=== PATIENT | male | born 1950 | race Caucasian/White ===

== ENCOUNTER 2017-10-06 10:46 | Inpatient (IN) | payer MEDICARE, BC ==
[2017-10-06] MEDS ORDERED: Lorazepam 2 MG/ML VIAL ONE (11:07)
[2017-10-06] MEDS ORDERED: niCARdipine 20MG In NaCl 20 MG/200 ML BAG ONE ×2 (11:35→13:36)
--- NOTE | 2017-10-06 12:01 | CT ---
CT HEAD WITHOUT CONTRAST: Technique: Multiple axial tomograms were obtained through the head without IV contrast. History: Transfer from [facility] with diagnosis of subdural hematoma. Comparison: CT head from [facility] at 3:54 a.m. 10-06-17. That exam revealed a left subdural hematoma with slight midline shift and some subarachnoid hemorrhag e seen superiorly in the left hemisphere. FINDINGS: The current study again shows the left subdural hematoma. This measures approximately 7 mm thickness along the left convexity. There is a focal area superiorly, slightly more prominent, associated with pre subarachnoid blood. This is unchanged in appearance. There is a small falcine subdural hematoma s een along the anterior falx to the left of midline. This falcine subdural has occurred since the outs pilo exam. There is a slight midline shift to the right measured at approximately 4-5 mm at the septum pellucidu m. No evidence of skull fracture. IMPRESSION: 1. Left subdural hematoma with significant subarachnoid blood in the superior left hemisphere. Small falcine subdural hematoma seen anteriorly. Slight midline shift as described above. POS: [id number]
[2017-10-06 12:03] LABS: #Lymphocytes 0.5 thou/uL (1.20-3.40); #Monocytes 0.3 thou/uL (0.11-0.59); #Neutrophils 6.1 thou/uL (1.40-6.50); %Eosinophils 0.2 % (0.0-10.0); %Lymphocytes 7.5 % (21.0-51.0); %Monocytes 4.7 % (0.0-10.0); %Neutrophils 87.7 % (42.0-75.0); Hemoglobin 13.3 g/dL (14.0-18.0); Mean Corpuscular HGB CONC 35.1 g/dL (32.0-36.0); Mean Corpuscular Hemoglobin 33.8 pg (27.0-31.0); Mean Corpuscular Volume 96.2 fl (80.0-94.0); Mean Platelet Volume 8.4 fL (7.4-10.4); Platelet Count 123 thou/uL (130-400); RBC Distribution Width 13.7 % (11.5-14.5); Red Blood Cell (RBC) Count 3.95 mill/uL (4.70-6.10)
[2017-10-06 12:22] LABS: Anion Gap 15 mmol/L (10-20); BUN (Urea Nitrogen) 32 mg/dL (8.4-25.7); CK (CPK) 284 U/L (30-200); Calc. Creatinine Clearance 0 mL/min (70-130); Calcium 9.8 mg/dL (7.8-10.44); Carbon Dioxide 22 mmol/L (23-31); Chloride 105 mmol/L (98-107); Estimated GFR-MDRD 53; Glucose 293 mg/dL (80-115); Potassium 4.5 mmol/L (3.5-5.1); Sodium 137 mmol/L (136-145)
[2017-10-06 12:24] LABS: PTT 31.8 SEC (22.9-36.1)
[2017-10-06 12:29] LABS: INR-International Normal Ratio 1.2; Prothrombin Time 15.8 SEC (12.0-14.7)
[2017-10-06] MEDS ORDERED: Acetaminophen 1,000 MG in Premix Bag 1 BAG IVPB SCH (12:30)
[2017-10-06 12:57] LABS: CKMB 21.6 ng/mL (0-6.6)
[2017-10-06] MEDS ORDERED: Milk Of Magnesia 30 ML UDCUP PO PRN (13:00)
[2017-10-06] MEDS ORDERED: Ondansetron HCl/PF 4 MG/2 ML Vial IVP PRN (13:00)
--- NOTE | 2017-10-06 13:32 | PRG ---
DATE OF SERVICE: 10/06/2017 This is a 50 minute initial hospital visit note in which 50 minutes were spent in reviewing the imagi ng, record, evaluation and examination of the patient, and formulation of a plan. Greater than 50% w as spent in counseling on Beth Crawford. CHIEF COMPLAINT: Left-sided acute subdural hematoma on Coumadin and aspirin with history of rig mechanic al heart valve. HISTORY OF PRESENT ILLNESS: I reviewed the notes of my colleague, Luther Dennis PA-C, and agree wi th its content. Mr. Crawford is a 67-year-old man who evidently fell 2 days ago. He was brought to [facility] and an acute subdural hematoma was identified. This enlarged a bit on C T angiogram which was negative for aneurysm. It was approximately 7-8 mm in size with approximately 3 mm of left to right midline shift. The patient has been drowsy, but is localized with some right- sided weakness. His INR was 1.7. He was given 2 units of FFP and 10 mg of vitamin K. At the time o f my evaluation, he had also gotten 0.5 mg of Ativan evidently for agitation. CT of the cervical spi ne was negative for acute abnormality. This was done at [facility]. PHYSICAL EXAMINATION: He prefers to keep his eyes closed, but he does open his eyes to noxious stimu li. He is nonverbal for me, but he localizes in his upper extremities with a bit more weakness in th e right upper extremity compared to the left. IMPRESSION AND PLAN: I have let the family know that his subdural is not of significant size, I do n ot think it necessary to pursue surgical intervention at this time. We will repeat a head CT in the morning. We will ensure that his INR has been corrected. He has been loaded with levetiracetam. We will continue this. I have also spoken with our intensive care unit team. He is not at this point intubated and his oxygen saturations remained just fine on nasal cannula. While he is drowsy, he is certainly awakens to noxious stimuli and makes eye contact with the examiner. His pupils are symmetr ic and equally round and reactive on my exam. I have let the family know that surgery would be for l larissa saving purposes and at this point I suspect that there his right-sided weakness is more from lisbeth ical irritation and perhaps a seizure that he may have had from his fall a couple days ago. We will use fosphenytoin at this time, watch him closely overnight, keep him n.p.o. at this time. IMPRESSION: Left subacute subdural hematoma status post fall on Coumadin and aspirin.
[2017-10-06] MEDS: Sodium Chloride 0.9% 1,000 ML IV SCH (14:50)
[2017-10-06] MEDS ORDERED: Dextrose 50% Abboject 50 ML SYRINGE SLOW IVP PRN (15:40)
[2017-10-06] MEDS ORDERED: Dextrose 5% in Water 1,000 ML IV PRN (15:40)
[2017-10-06 15:47] LABS: Troponin I 4.446 ng/mL (< 0.028)
[2017-10-06] MEDS: niCARdipine HCl 25 MG in Sodium Chloride 0.9% 250 ML 240 ML IVPB SCH ×3 (15:59→20:51)
[2017-10-06] MEDS: HumaLOG 300 UNITS/3 ML VIAL SC PRN (16:20)
--- NOTE | 2017-10-06 17:02 | CON ---
DATE OF SERVICE: 10/06/2017 SERVICE: Pulmonary Medicine. REASON FOR CONSULTATION: ICU patient. HISTORY OF PRESENT ILLNESS: The patient is a 67-year-old white male with past medical history signif icant for a mechanical aortic valve. He is on chronic anticoagulation for the same. He slipped and fell off of his ladder couple of days ago and became increasingly somnolent. [facility]. A CT scan of the head was performed demonstrating a subdural hematoma. He was subsequently transitioned here and several hours later, repeat CT scan of the head was perfo rmed. It is my understanding that his neurologic status has been roughly stable over this period of time as well. It demonstrated that the subdural hematoma had not been significantly changing. As sarah bauer, we are watching him in the ICU very closely to make certain that he does not have further decompe nsation neurologically. Outside of this, the patient is somnolent. With aggressive stimulation, he will localize on the left and actually follows some simple commands over there. Otherwise, he remain s extraordinarily sleepy and does not participate in much. He is protecting his airway and had a lit tle bit of cough. He has almost continuous snoring, but it does not appear that he is having any obs tructive apneas and he is not having any episodes of hypoxemia. PAST MEDICAL HISTORY: 1. Type 2 diabetes mellitus. 2. Dyslipidemia. 3. Hypertension. 4. Peripheral vascular disease. 5. Coronary artery disease. 6. Neuropathy. 7. History of subdural hematoma. PAST SURGICAL HISTORY: Coronary artery bypass graft, 4-vessel. SOCIAL HISTORY: Negative for alcohol, tobacco or illicit drug use. FAMILY HISTORY: Noncontributory. ALLERGIES: No known drug allergies. MEDICATIONS: List of his inpatient medications were reviewed. No specific updates were made at this time. REVIEW OF SYSTEMS: This could not be obtained as the patient is currently sedated secondary to his n eurologic injury. LABORATORY DATA: WBC 7.0, hemoglobin 13.3, platelets 123,000. Neutrophils are 87%. INR 1.2. Creat inine 1.35. No baseline is available for comparison. Basic metabolic profile is otherwise unremarka ble. Troponin is 2.12, lactate 1.5. ASSESSMENT: 1. Subdural hematoma. 2. Type 2 diabetes mellitus. 3. Encephalopathy secondary to #1. 4. Non-ST elevation myocardial infarction, likely secondary to subdural hematoma. 5. History of aortic valve replacement requiring anticoagulation at some point in the future once ag ain. PLAN: I will get an EKG to make certain the patient does not have any significant ST changes. Outsi de of that, troponin will be repeated. Supportive measures will be continued and we will closely fol low his neurologic status. If anything gets worse, repeat CT scan of the head will be performed and Neurosurgery will be notified of change in status. We will monitor for signs of sepsis and have a lo w threshold for chest x-ray as well as navarro culture. At this time, no aggressive maneuvers will be en tertained. Insulin be will initiated if the patient's blood sugars start to go up.
--- NOTE | 2017-10-06 18:12 | ADD-ER ---
ADDENDUM DATE OF SERVICE: 10/06/2017. Please refer to the patient's electronic medical record for further details of his visit. In summary, the patient presents as a transfer from [facility] where he was diagn osed with a subdural hematoma earlier this morning. By report, he woke his around 3:30 in the m orning indicating he was unable to speak. He fell on Tuesday, but did not lose consciousness at that time. He felt well until he woke his earlier this morning. Findings at [facility] are consistent with subdural hematoma with 2 mm midline sh ift. The patient was evaluated by the neurosurgical service there and it was decided to transfer him here for higher level ICU care. On my initial evaluation, the patient is maintaining his airway protected reflexes, he is breathing s pontaneously without distress. Breath sounds are clear bilaterally. Peripheral pulses were intact i n all extremities. The patient was not following commands or responding to questions, though he was moving all extremities. He did calm down quite a bit once his arrived, after initially being ra ther agitated on arrival. He remained stable during his time in the ER, with blood pressure control using a Cardene drip which was titrated for a goal systolic blood pressure 140 to 160. The patient was again evaluated by the neurosurgical service in the ER. Repeat CT shows no progressi on of his subdural hematoma. His Coumadin was reversed using FFP and vitamin K at the sending facili ty. This showed adequate response on repeat INR with a value of 1.2. There is also of note that he sustaining non-ST elevation KS with rising troponin compared with the sending facilities. He is 2.12 on recheck here, with ST depression and T-wave inversion on his EKG consistent with subendocardial i njury. I discussed this case with Dr. Gaytan, who agrees that there is no acute intervention indicat ed at this point, has any antiplatelet or anticoagulation therapy would worsen the patient's intracra nial hemorrhage. He is in no respiratory distress while in the ER, though chest x-ray is consistent with congestive heart failure. He was not hypoxic with supplemental oxygenation. I discussed the fi ndings and plan with his family, who verbalized understanding. All of their questions were answered. The patient is in critical condition at time of admission to the ICU.
[2017-10-06] MEDS ORDERED: Metoprolol Tartrate 5 MG/5 ML VIAL IVP PRN (20:02)
[2017-10-06] MEDS: Famotidine/PF 20 mg/2ml Vial SLOW IVP SCH (20:58)
[2017-10-06] MEDS: Docusate 100 MG CAP PO SCH (20:59)
--- NOTE | 2017-10-06 22:23 | CON ---
DATE OF CONSULTATION: 10/06/2017 HISTORY OF PRESENT ILLNESS: Mr. Crawford is a 67-year-old patient of Dr. Paolo Jha. The patient has a history of aortic valve replacement and has a subdural hematoma. The history is really only available through the chart, as the patient is noncommunicative now. Mr. Crawford is 67 years of age, has mechanical aortic valve, some chronic anticoagulation. He slipped and fell off a ladder couple of days ago became somnolent. He went to the emergency room with the ed. CT of the head showed subdural hematoma. Patient was transferred to this institution. Repeat C T of the head was performed again showing subdural hematoma. Patient has remained somnolent during t his time. PAST MEDICAL HISTORY: 1. Diabetes. 2. Peripheral vascular disease. 3. Previous aortic valve replacement, mechanical. 4. Really no other history available. PAST SURGICAL HISTORY: According to one of the notes says he has had bypass x4 vessel with aortic va lve replacement. SOCIAL HISTORY: Negative for alcohol or tobacco. FAMILY HISTORY: Noncontributory. ALLERGIES: None known. REVIEW OF SYSTEMS: Not obtainable. LABORATORY DATA AND X-RAY FINDINGS: As mentioned, there is the CT shows subdural hematoma. EKG reve als ST depression in lead I and aVL. PERTINENT LABORATORY DATA: Potassium is 4.5, creatinine 1.35. Troponin level 4.46, hemoglobin 13.3. INR is now down to 1.2. His Coumadin has been reversed. ASSESSMENT: 1. Previous aortic valve replacement. 2. Subdural hematoma. 3. Non-ST elevation myocardial infarction. PLAN: 1. Add intravenous beta blockers. 2. Chest x-ray in the morning. No other intervention obviously indicated or feasible, but cannot gi ve antiplatelet drugs in the setting of subdural hematoma.
[2017-10-07] MEDS: niCARdipine HCl 25 MG in Sodium Chloride 0.9% 250 ML 240 ML IVPB SCH ×4 (02:00→04:00)
[2017-10-07] MEDS: HumaLOG 300 UNITS/3 ML VIAL SC PRN ×3 (02:22→16:00)
[2017-10-07 05:10] LABS: #Lymphocytes 0.6 thou/uL (1.20-3.40); #Monocytes 0.5 thou/uL (0.11-0.59); #Neutrophils 7.2 thou/uL (1.40-6.50); %Basophils 0.1 % (0.0-1.0); %Eosinophils 0.2 % (0.0-10.0); %Lymphocytes 6.7 % (21.0-51.0); %Monocytes 6.6 % (0.0-10.0); %Neutrophils 86.5 % (42.0-75.0); Hemoglobin 12.8 g/dL (14.0-18.0); Mean Corpuscular HGB CONC 34.3 g/dL (32.0-36.0); Mean Corpuscular Hemoglobin 32.7 pg (27.0-31.0); Mean Corpuscular Volume 95.5 fl (80.0-94.0); Mean Platelet Volume 8.9 fL (7.4-10.4); Platelet Count 122 thou/uL (130-400); RBC Distribution Width 13.6 % (11.5-14.5); Red Blood Cell (RBC) Count 3.91 mill/uL (4.70-6.10); White Blood Cell (WBC) Count 8.3 thou/uL (4.8-10.8)
[2017-10-07 05:13] LABS: Anion Gap 13 mmol/L (10-20); BUN (Urea Nitrogen) 45 mg/dL (8.4-25.7); Calc. Creatinine Clearance 64 mL/min (70-130); Calcium 9.4 mg/dL (7.8-10.44); Carbon Dioxide 25 mmol/L (23-31); Chloride 107 mmol/L (98-107); Estimated GFR-MDRD 41; Glucose 338 mg/dL (80-115); Magnesium 1.6 mg/dL (1.6-2.6); Phosphorus 2.8 mg/dL (2.3-4.7); Potassium 4.2 mmol/L (3.5-5.1); Sodium 141 mmol/L (136-145)
[2017-10-07 05:22] LABS: Troponin I 7.882 ng/mL (< 0.028)
[2017-10-07] MEDS ORDERED: Acetaminophen 650 MG Suppository PR SCH (06:00)
--- NOTE | 2017-10-07 07:29 | CT ---
PRELIMINARY REPORT/[facility]/EMERGENCY AFTER HOURS PROCEDURE: EXAM: CT Head Without Intravenous Contrast CLINICAL HISTORY: 67 years old, male; Condition or disease; Other: Sdh; Patient HX: F/u sdh TECHNIQUE: Axial computed tomography images of the head/brain without intravenous contrast. COMPARISON: CT Brain WO Con 2017-10-06 11:34 FINDINGS: Grossly stable left-sided subdural and subarachnoid hemorrhages with edema and minimal shift to the r ight. Intraventricular hemorrhage noted. The ventricles have mildly increased in size. The basal and suprasellar cisterns are patent. The calvarium is intact. The paranasal sinuses and mastoid cavities are grossly clear IMPRESSION: Interval development of mild hydrocephalus. Mild intraventricular hemorrhage Otherwise, grossly stable left-sided subdural/subarachnoid hemorrhages Thank you for allowing us to participate in the care of your patient. Dictated and Authenticated by: Mike Centeno MD 10/07/2017 4:36 AM Central Time ([place] & Jose Daniel) FINAL REPORT CT HEAD NONCONTRAST: Date: 10/07/17 COMPARISON: Previous day. FINDINGS/IMPRESSION: I agree with the above provided preliminary interpretation. Redemonstration of intracranial hemorrhage overlying the left hemisphere with mild volume intraventri cular hemorrhage. There is mild ventriculomegaly. Continued follow-up is recommended.
[2017-10-07] MEDS ORDERED: niCARdipine 40MG In NaCl 40 MG/200 ML BAG IVPB SCH (08:30)
[2017-10-07] MEDS: Famotidine/PF 20 mg/2ml Vial SLOW IVP SCH (08:33)
[2017-10-07] MEDS: Docusate 100 MG CAP PO SCH ×2 (08:34→21:02)
[2017-10-07] MEDS: Sodium Chloride 0.9% 1,000 ML IV SCH ×2 (08:35→14:05)
[2017-10-07] MEDS: niCARdipine HCl 50 MG in Sodium Chloride 0.9% 250 ML 230 ML IVPB SCH (08:36)
[2017-10-07] MEDS ORDERED: Sodium Chloride 0.9% 10 ML ONE (08:50)
[2017-10-07] MEDS ORDERED: Lidocaine 1% w/Epinephrine 1:200K 30 ML VIAL ONE (08:50)
[2017-10-07] MEDS ORDERED: Thrombin 5000 UNITS/5 ML VIAL ONE (08:50)
[2017-10-07] MEDS ORDERED: Bacitracin Zinc Ointment 30 gm TUBE ONE (08:50)
[2017-10-07] MEDS ORDERED: Fentanyl 100 MCG/2 ML VIAL ONE (09:11)
[2017-10-07] MEDS ORDERED: Midazolam HCl 2 mg/2 ml Vial ONE (09:11)
--- NOTE | 2017-10-07 09:13 | RAD ---
PORTABLE AP CHEST: Date: 10/07/17 HISTORY: AVR. COMPARISON: 07/25/17. FINDINGS: A left internal jugular vein MediPort catheter remains in plate. The tip again courses across the mid line and overlies the expected location of the junction of the right subclavian vein/innominate vein, and unchanged in position. Postsurgical changes related to CABG are again present. There is persiste nt elevation of the right hemidiaphragm with volume loss at the right lung base. The left lung is jen ar. Cardiac silhouette and pulmonary vasculature are within normal limits. Given differences in techn ique, there has been no significant interval change when compared to the prior exam. IMPRESSION: Stable chest. POS: C
--- NOTE | 2017-10-07 09:33 | PRG ---
DATE OF SERVICE: 10/07/2017 I am seeing Mr. Crawford in followup. He is in his first hospital day following admission for left-mariaelena ed acute subdural hematoma in a fall 3 days [address]. His head CT is essentially stable this morning if n ot improved in regards to shift which is quite minimal even yesterday. Unfortunately, however, he do es appear to have parenchymal contusion around the region of the motor strip and continued mass effec t in the hemisphere and he is in fact neurologically declined overnight. He was also found to have h ad a non-STEMI. He hemodynamically remains stable; however. At this point, I have let the family kn ow that on exam he does not open his eyes like he did yesterday, I cannot get him to do anything with the right upper extremity which he was localizing yesterday. He does localize in the left upper ext remity; however. He appears to be obtunded. Yesterday, he was drowsy. As such, given all this, I h ave let the family know that I would recommend that we take him to the operating room and remove his subdural hematoma. While this is not a substantial subdural hematoma, this certainly is leading to n eurological decline on this patient. I feel that if we do not do anything, he will likely get worse, maybe chance that is he may develop cardiac issues during surgery, but again if nothing is done to r elieve pressure on his brain, I think he will continue to worsen. I have had a long discussion with him and his and his daughter regarding acute subdural hematoma evacuation, the risks, benefits, and they wish to have proceed. They understand the chance of temporary or permanent neurological wor sening and cardiac issues even such as remain the main concern. They understand these risks an d wished to proceed with surgery.
[2017-10-07] MEDS ORDERED: Insulin Regular 300 UNITS/3 ML VIAL ONE (10:02)
[2017-10-07] MEDS ORDERED: Magnesium 2 GM/NS 0.9% 100 ML 2 GM in Premix Bag 1 BAG IVPB SCH (10:15)
[2017-10-07 12:37] LABS: Actual Bicarbonate (HCO3a) 20.8 mEq/L (22-26); Base Excess (BEa) -3.1 mEq/L (0 (+/-) 2.5); CO2 Tension 33.9 mmHg (35.0-45.0); Calcium, Ionized 1.2 mmol/L (1.12-1.30); Hematocrit-ABG 35.7 % (42.0-52.0); Hemoglobin (Hb) 12.4 g/dL (14.0-18.0); O2 Tension (PaO2) 193.3 mmHg (80.0-100.0); pH, Arterial 7.41 (7.35-7.45)
[2017-10-07] MEDS ORDERED: Lorazepam 2 MG/ML VIAL ONE ×2 (12:39→12:52)
[2017-10-07] MEDS ORDERED: Propofol 1,000 MG/100 ML VIAL IV ONE (12:52)
--- NOTE | 2017-10-07 13:02 | RAD ---
PORTABLE CHEST: Date: 10/07/17 Supine portable chest exam obtained. HISTORY: Assess central line placement. FINDINGS: Comparison made to exam performed earlier this morning at 0448 hours. A MediPort type catheter via the left jugular remains in place and the tip of this line enters the ri ght innominate vein and points superiorly into the right internal jugular. This is unchanged. A new left subclavian vein has been placed and the tip of this line overlies the SVC. The lungs otherwise remain clear. There is a relatively poor inspiration. Elevated right hemidiaphrag m is again noted. No evidence of pneumothorax. Mild cardiomegaly again noted. ET tube has been placed . IMPRESSION: Central lines are seen as described above. POS: [facility]
[2017-10-07] MEDS: Piperacillin/Tazobactam 2.25 GM in Sodium Chloride 0.9% 100 ML IVPB SCH ×3 (13:12→23:59)
[2017-10-07] MEDS ORDERED: Sedation Protocol FS ONE (13:21)
[2017-10-07] MEDS ORDERED: Lacri-Lube Opth Oint 3.5 GM TUBE EA EYE PRN (13:21)
[2017-10-07] MEDS ORDERED: Lorazepam 2 MG/ML VIAL SLOW IVP PRN (13:24)
[2017-10-07] MEDS ORDERED: DISCONTINUE PREVIOUS NARCOTIC PAIN MEDICATIONS AND BENZODIAZEPINES FS SCH (13:24)
[2017-10-07] MEDS ORDERED: Fentanyl 20 MCG/ML 250 ML IVPB SCH (13:24)
[2017-10-07] MEDS ORDERED: Morphine 4 MG/ML VIAL SLOW IVP PRN (13:30)
--- NOTE | 2017-10-07 13:55 | PRG ---
DATE OF SERVICE: 10/07/2017 SUBJECTIVE: Mr. Crawford is postoperative, now he went down to the operating room for drainage of a smtih bdural hematoma. He has a drain in place with still a lot of bloody output from the drain. Patient is unresponsive currently. Intubated on the ventilator. OBJECTIVE: VITAL SIGNS: Blood pressure 114/56, pulse 100-104, sinus tachycardia. LUNGS: Clear. CARDIAC: Tachycardic for rest. ABDOMEN: Soft, nontender. EXTREMITIES: There is mild edema. PERTINENT LABORATORY DATA: Hemoglobin is 12.8, potassium 4.2. The peak troponin was 7.8. ASSESSMENT: 1. Subdural hematoma. 2. Status post mechanical aortic valve replacement. 3. Non-ST elevation myocardial infarction. 4. Previous bypass surgery. PLAN: 1. Add metoprolol on a routine basis. He has been getting it intermittently. 2. Postoperative status. 3. Obviously not a candidate for any interventional therapy from a coronary standpoint in view of th e continued bleeding with subdural hematoma. Continue supportive care. Prognosis is guarded to poor . ADDENDUM: Renal function also worsened, creatinine is now 1.69.
[2017-10-07] MEDS ORDERED: CEFAZOLIN 2 GM in Sodium Chloride 0.9% 100 ML IVPB SCH (14:00)
[2017-10-07] MEDS: CEFAZOLIN/Water 2 GM/20 ML SYRINGE SLOW IVP SCH ×2 (14:05→21:00)
[2017-10-07 14:06] LABS: Bilirubin Negative (Negative); Blood, Urine Large (Negative); Clarity TURBID (Clear); Glucose, Urine (Dipstick) 250 mg/dL (Negative); Leukocyte Negative (Negative); Nitrite Negative (Negative); Protein, Urine (Dipstick) > or equal to 300 mg/dL (Neg-Trace); Specific Gravity, Urine 1.036 (1.002-1.036); Urobilinogen 0.2 mg/dL (0.2-1.0); pH, Urine 5.5 (5.0-9.0)
[2017-10-07 14:07] LABS: Actual Bicarbonate (HCO3a) 21.2 mEq/L (22-26); Base Excess (BEa) -2.4 mEq/L (0 (+/-) 2.5); CO2 Tension 32.6 mmHg (35.0-45.0); Calcium, Ionized 1.2 mmol/L (1.12-1.30); Hematocrit-ABG 31.4 % (42.0-52.0); Hemoglobin (Hb) 11.3 g/dL (14.0-18.0); O2 Tension (PaO2) 62.4 mmHg (80.0-100.0); pH, Arterial 7.43 (7.35-7.45)
[2017-10-07 14:08] LABS: Puncture Site A-LINE
[2017-10-07 14:09] LABS: Bacteria/HPF None Seen HPF (None Seen)
[2017-10-07 14:17] LABS: Pathc Cast-AUWi Flag 20.06 (0-2.49); Yeast-AUWi Flag 33.5 (0-25.0)
[2017-10-07 14:45] LABS: Crystals/HPF 2+ AMORPH URATES HPF (Negative)
[2017-10-07 14:46] LABS: Hyaline Casts/LPF 0-3 HYALINE CAST LPF (0-3 Hyaline)
[2017-10-07 14:47] LABS: Yeast-All Forms None Seen HPF (None Seen)
[2017-10-07] MEDS ORDERED: Succinylcholine Chloride 20 MG/ML 10 ml SYRINGE FS ONE (15:32)
[2017-10-07] MEDS ORDERED: Propofol 200 MG/20 ML VIAL ONE (15:32)
[2017-10-07] MEDS ORDERED: PHENYLEPHRINE-NS 100 MCG/ML 10 ML SYRINGE ONE (15:32)
[2017-10-07] MEDS ORDERED: ePHEDrine/0.9% NaCl/PF SYRINGE 50 mg/10 ml ONE (15:32)
[2017-10-07] MEDS ORDERED: Vecuronium 10 MG VIAL ONE (15:32)
--- NOTE | 2017-10-07 15:33 | PRG ---
DATE OF SERVICE: 10/07/2017 SERVICE: Pulmonary Medicine. INTERVAL HISTORY: The patient did poorly overnight. His mentation decreased. This prompted a CT scan. He had worsening changes including hydrocephalus, and slightly increased in midline shift. Because of the altered mentation, he was brought down for craniectomy. He is postop day #0 from that. Immediately on bringing him back to the unit, we reversed the paralytic. He was noted to have seizure type movements of the right upper extremity, and mouth. As such, couple doses of Ativan were given and this resolved. We are going to keep him in a neurologic coma for the next 24 hours and slowly wake him up, starting tomorrow morning. Extubation will be performed as soon as is possible. He had multiple episodes of fever overnight. The origin of those fevers most likely is secondary to the neurologic issue though he is pulling up increasing pus from the endotracheal tube. PHYSICAL EXAMINATION: VITAL SIGNS: T-max 102.1, pulse 105, blood pressure 114/56, respirations 18, saturation 92% on 40% FIO2 and a PEEP of 8. GENERAL: The patient is intubated under the influence of some sedating medications. HEENT: Normocephalic, atraumatic. Sclerae are white, conjunctivae pink. Oral and nasal mucosa is moist without lesions. LUNGS: Decent air entry. There is no prolonged expiratory phase. Rhonchi are present. HEART: Normal rate, regular. ABDOMEN: Soft, nontender, nondistended. Bowel sounds are positive. MUSCULOSKELETAL: No cyanosis or clubbing. There is no pitting in the bilateral lower extremities. LABORATORY DATA: WBC 8.3, hemoglobin 12.8, and platelets are 122,000. INR 1.2. Creatinine 1.69 and up trending. Basic metabolic profile is otherwise unremarkable. Magnesium is 1.6, phosphorus 2.8. Troponin continues to climb upward at 7.8. IMAGIN. CT of the brain demonstrates mild hydrocephalus and mild intraventricular hemorrhage with otherwise stable subdural/subarachnoid hemorrhage. 2. X-ray demonstrates good placement of the endotracheal tube. There is a left- sided subclavian catheter then actually across the midline and back up into the upper chest. The Port-A-Cath remains in good position and is in the expected area where the terminate. There are some clips that overlie the left hilum. Small lung volumes are evident, suggestive of atelectasis of the right lower lobe. ASSESSMENT: 1. Acute hypoxic respiratory failure, likely secondary to atelectasis. 2. Systemic inflammatory response syndrome, with possible aspiration. 3. Subdural hematoma with worsening neurologic symptoms, requiring a craniectomy, postop day #0. 4. Seizure, witnessed at bedside by both Neurosurgery and Critical Care. 5. Non-ST elevation myocardial infarction. 6. History of aortic valve replacement, requiring anticoagulation at some point in the future. PLAN: Because of the acute seizures, we will give a couple of doses of Ativan and keep him in a propofol induced sedation state over the next 12 hours. I will give him a sedation holiday in the morning and consider him for extubation if he tolerates CPAP trial. My suspicion is that the patient has an atelectasis of the right lower lobe as he did not have significant oxygenation issues prior to our procedure. I will empirically initiate some antibiotics that should cover most community-acquired aspiration related diseases. Roa culture will be obtained and we can deescalate therapy if the cultures are all negative. My suspicion is that the fever is secondary to his neurologic injury. That being said, we have yet to confirm that. We will titrate the blood pressure medications in order to maintain systolic less than 140. Insulin will be adjusted as the day goes by in order to target blood sugars between 120 and 180. Critical care time: 45 minutes. AUGUSTIND
[2017-10-07] MEDS: Metoprolol Tartrate 5 MG/5 ML VIAL IVP SCH ×2 (16:32→21:00)
[2017-10-07 16:41] LABS: Analyzer IN Cardio OR; Puncture Site ALINE
[2017-10-07] MEDS ORDERED: levETIRAcetam In NaCl (Iso-Os) 1,000 MG in Premix Bag 1 BAG IVPB SCH ×2 (21:00)
[2017-10-07] MEDS: Insulin Detemir 100 UNITS/ML 10 UNITS in Pre-Filled Syringe 1 EACH SC SCH (21:01)
--- NOTE | 2017-10-07 22:13 | CON ---
DATE OF CONSULTATION: 10/07/2017 REFERRING PROVIDER: Dr. Marcelo Nielsen. REASON FOR CONSULTATION: Seizures. HISTORY OF PRESENT ILLNESS: Mr. Crawford is a 67-year-old male who has been consulted for ev aluation of seizures. History is obtained from patient's medical chart as patient is unable to provi de and there are no family member present at bedside. Apparently, patient has a history of mechanica l aortic valve and for which he is on chronic anticoagulation therapy. He had slipped and fell off h is ladder a couple of days ago after which he became increasingly somnolent. He was becoming more an d more lethargic and somnolent. Family had called EMS and was taken to [facility] Emergency Room where he had a CT scan of the head done, which showed a subdural hematoma. He was s ubsequently transferred over here. He has undergone a subdural hematoma evacuation by Dr. Nielsen. A fter the surgery, he was noted to have right facial twitching suggestive of focal motor seizures for which I am being asked to further evaluate and provide recommendations. Past medical history, past surgical history, social history, family history, current medications, all ergies were reviewed from consultation note done by Dr. Lenny Benitez done on 10/06/2017. REVIEW OF SYSTEMS: Unable to perform. PHYSICAL EXAMINATION: VITAL SIGNS: Blood pressure 127/58, pulse of 88, temperature of 99.4, respirations of 15 on new car get ready mechanic al ventilation. GENERAL: Intubated and sedated, and male. RESPIRATORY: Clear to auscultation bilaterally. CARDIOVASCULAR: Regular rate and rhythm. NEUROLOGIC: Mental status: The patient is intubated and sedated with propofol. Cranial nerves: Pu pils are 3 mm and reactive bilaterally. Positive corneal reflexes. He does breathe over the ventila tor machine. Motor exam showed flaccid right upper and right lower extremity. He withdraws to pain on the left upper and left lower extremity. There is no withdrawal to pain noted on the right upper and right lower extremity. LABORATORY DATA: Reviewed, which included CBC, CMP, urinalysis, which is significant for hemoglobin 12.8, hematocrit of 37.3, platelet count of 122, BUN of 45, creatinine 1.69, glucose of 268 and tropo anam of 7.882, otherwise unremarkable. IMAGING STUDIES: CT head without contrast was reviewed, which showed left-sided subdural hematoma al ronnie with cerebral hemorrhage. He is status post evacuation. IMPRESSION: 1. Left-sided subdural hematoma, status post evacuation. 2. 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 Mr. Crawford is a 67-year-old male who presented after falling down and developing left-sided subdural hematoma. He was noted to have focal motor seizure involving the right side of the face. At this time, I had asked Dr. Nielsen to increase the dose of the Keppra 2000 mg b.i.d. I have discuss ed with the patient's nurse that if he does have a recurrence of focal motor seizures, then Keppra ca n be increased to 1500 mg b.i.d. If he continues to have focal motor seizures, then we can add Vimpa t 100 mg b.i.d. for control of his seizures. I would recommend continuing current medical management and close monitoring for any neurological changes.
[2017-10-07] MEDS: Propofol 1,000 MG/100 ML VIAL IV PRN (23:58)
[2017-10-08] MEDS: Metoprolol Tartrate 5 MG/5 ML VIAL IVP SCH ×3 (00:02→10:56)
[2017-10-08] MEDS: HumaLOG 300 UNITS/3 ML VIAL SC PRN ×5 (00:10→21:27)
[2017-10-08] MEDS: Lorazepam 2 MG/ML VIAL SLOW IVP PRN ×9 (05:01→22:06)
[2017-10-08] MEDS: Propofol 1,000 MG/100 ML VIAL IV PRN ×6 (05:03→23:20)
[2017-10-08] MEDS: Piperacillin/Tazobactam 2.25 GM in Sodium Chloride 0.9% 100 ML IVPB SCH ×4 (05:03→23:19)
[2017-10-08] MEDS: CEFAZOLIN/Water 2 GM/20 ML SYRINGE SLOW IVP SCH ×3 (05:04→21:16)
[2017-10-08] MEDS: Sodium Chloride 0.9% 1,000 ML IV SCH ×2 (05:10→18:52)
[2017-10-08 05:17] LABS: #Lymphocytes 0.7 thou/uL (1.20-3.40); #Monocytes 0.8 thou/uL (0.11-0.59); #Neutrophils 6.9 thou/uL (1.40-6.50); %Basophils 0.2 % (0.0-1.0); %Eosinophils 0.2 % (0.0-10.0); %Lymphocytes 7.7 % (21.0-51.0); %Monocytes 9.1 % (0.0-10.0); %Neutrophils 82.8 % (42.0-75.0); Hemoglobin 11.3 g/dL (14.0-18.0); Mean Corpuscular HGB CONC 34.2 g/dL (32.0-36.0); Mean Corpuscular Hemoglobin 33.2 pg (27.0-31.0); Mean Platelet Volume 8.1 fL (7.4-10.4); Platelet Count 103 thou/uL (130-400); RBC Distribution Width 13.5 % (11.5-14.5); Red Blood Cell (RBC) Count 3.41 mill/uL (4.70-6.10); White Blood Cell (WBC) Count 8.4 thou/uL (4.8-10.8)
[2017-10-08 06:30] LABS: Anion Gap 13 mmol/L (10-20); BUN (Urea Nitrogen) 63 mg/dL (8.4-25.7); Calc. Creatinine Clearance 48 mL/min (70-130); Calcium 8.6 mg/dL (7.8-10.44); Carbon Dioxide 22 mmol/L (23-31); Chloride 113 mmol/L (98-107); Estimated GFR-MDRD 29; Glucose 267 mg/dL (80-115); Magnesium 2.4 mg/dL (1.6-2.6); Phosphorus 4.3 mg/dL (2.3-4.7); Potassium 4.2 mmol/L (3.5-5.1); Sodium 144 mmol/L (136-145)
[2017-10-08] MEDS: niCARdipine HCl 50 MG in Sodium Chloride 0.9% 250 ML 230 ML IVPB SCH ×2 (06:45→16:16)
[2017-10-08 07:20] LABS: Actual Bicarbonate (HCO3a) 21.9 mEq/L (22-26); Base Excess (BEa) -2.9 mEq/L (0 (+/-) 2.5); CO2 Tension 37.8 mmHg (35.0-45.0); Calcium, Ionized 1.2 mmol/L (1.12-1.30); O2 Tension (PaO2) 91.9 mmHg (80.0-100.0); pH, Arterial 7.38 (7.35-7.45)
[2017-10-08 07:21] LABS: Puncture Site ALINE
--- NOTE | 2017-10-08 07:32 | PRG ---
DATE OF SERVICE: 10/08/2017 Mr. Crawford is resting in the ICU. He is 1 day out from a craniotomy for evacuation of subdural hemat blossom. Postoperatively, he has been having difficulty with focal motor seizures involving the right up per extremity and right face. 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 Vitals have been stable, but as soon as we weaned the propofol, he began to seize again. It was very difficult to examine Mr. Crawford. I have reviewed CT imaging of the brain this morning and the evacu ation of the subdural hematoma looks quite good. There is no more mass effect from any extraaxial bl ood accumulation over the left hemisphere. There is a small amount of contusion in the area of the p osterior left frontal lobe that looks like primary motor cortex, which could be resulting in the weak ness we see in addition the Clemente's paralysis. The basal cisterns are wide open. The sylvian fissure s are wide open. Does not seem to be a significant amount of shift in any direction. I do not think there is elevated pressure whatsoever. Mr. Crawford suffered non-ST myocardial infarction, a fall, subdural hematoma in the setting of Coumadi n and aspirin therapy. The mass effect of the subdural hematoma has been removed and now he is seizi ng. I think seizure control is our goal here. I do not believe he has elevated intracranial pressur e and I am going to hold off on ICP monitoring. I will, however, obtain CT imaging of the brain in a serial fashion, and continue to monitor closely. I will talk to our colleagues in Neurology and Cri tical Care about a higher dose propofol or addition of Versed drip to control seizures and adjusting the antiepileptic medications to get these under control. We will continue to follow his electrolyte s as well.
[2017-10-08] MEDS: levETIRAcetam In NaCl (Iso-Os) 1,500 MG in Premix Bag 1 BAG IVPB SCH ×4 (08:04→20:30)
--- NOTE | 2017-10-08 08:39 | RAD ---
PORTABLE SUPINE CHEST: HISTORY: Shortness of breath. Hypoxia. Post intubation. COMPARISON: 10/07/17. FINDINGS: Poor inspiration. ET tube and both central lines are unchanged. Lungs appear clear of focal infiltr ate. There is cardiomegaly and postop sternotomy change. IMPRESSION: No significant change from 10/07/17 exam. POS: [facility]
[2017-10-08] MEDS: Metoprolol Tartrate 50 MG TAB PO SCH ×2 (09:32→21:15)
[2017-10-08] MEDS: Famotidine/PF 20 mg/2ml Vial SLOW IVP SCH (09:33)
[2017-10-08] MEDS: Insulin Detemir 100 UNITS/ML 10 UNITS in Pre-Filled Syringe 1 EACH SC SCH ×2 (09:35→21:15)
--- NOTE | 2017-10-08 10:21 | CT ---
PRELIMINARY REPORT/[facility]/EMERGENCY AFTER HOURS PROCEDURE: EXAM: CT Head Without Intravenous Contrast CLINICAL HISTORY: 67 years old, male; Seizures, f/u subdural hematoma; Prior surgery; Post-operative (0-2 days); Cranio lala for SDH TECHNIQUE: Axial computed tomography images of the head/brain without intravenous contrast. COMPARISON: CT Brain WO Con 2017-10-07 04:19 FINDINGS: Brain: In the interval since the prior CT examination dated 10/07/2017, the patient has undergone lef t hflmbxg-gbrruity-worpcapt craniotomy with left subdural evacuation. Multiple postsurgical air colle ctions within the left eyctcay-qniuhqwd-zjcikfgp extra axial space with minimal residual left tempora l extra-axial hemorrhage (3-4 mm thickness). Subarachnoid blood remains in multiple left cerebral hem isphere are cortical sulcal markings. No change in focal contusion within the mid left parietal lobe. Recommended cisterna. No significant white matter disease. Midline shift: No midline shift. Ventricles: Unremarkable. No ventriculomegaly. Bones/joints: Soft tissue surgical drain located external to the craniotomy flap and overlying skin s urgical reese. Soft tissues: Unremarkable. Sinuses: Unremarkable as visualized. No acute sinusitis. Mastoid air cells: Unremarkable as visualized. No mastoid effusion. Other findings: Minimal amount of residual hemorrhage within each posterior occipital horn. IMPRESSION: 1. In the interval since the prior CT examination dated 10/07/2017, the patient has undergone left fr ygywz-rzxkbfsi-lwyfskhi craniotomy with left subdural evacuation. Multiple postsurgical air collectio ns within the left iucdxko-ptdlotpe-ypjptqfr extra axial space with minimal residual left temporal ex tra-axial hemorrhage (3-4 mm thickness). 2. Subarachnoid blood remains in multiple left cerebral hemisphere are cortical sulcal markings. No c hange in focal contusion within the mid left parietal lobe. 3. Minimal amount of residual hemorrhage within each posterior occipital horn. 4. No midline shift. Thank you for allowing us to participate in the care of your patient. Dictated and Authenticated by: Virgil Santos MD 10/08/2017 4:23 AM Central Time ([place] & [place]) FINAL REPORT CT HEAD WITHOUT CONTRAST: Postop craniotomy changes. The subdural has been evacuated. There is pneumocephalus. There continu es to be acute subarachnoid blood. I am in agreement with the preliminary report. POS: [facility]
[2017-10-08] MEDS: Docusate Sodium 100 MG/10 ML UDCUP PO SCH (10:57)
[2017-10-08] MEDS: Docusate 100 MG CAP PO SCH (11:11)
--- NOTE | 2017-10-08 11:15 | PRG ---
DATE OF SERVICE: 10/08/2017 SUBJECTIVE: The patient was intubated on the vent. He is still seizing. As per the nurses, his Kep pra was increased to 500 mg twice a day. OBJECTIVE: VITAL SIGNS: His pulse is 93, blood pressure 120/80, sat is 100%, his respirations 18. I's and O's are 1766 in and 2235 out. NEUROLOGIC: He is unresponsive. Pupils are equal. CHEST: Decreased breath sounds, no wheezing. CARDIAC: Normal S1, S2. No gallops, no masses. LABORATORY DATA: His white count 8,000, hemoglobin and hematocrit 10 and 33, platelet count 103, pO2 is 91, pCO2 of 37, pH 7.38, on a rate of 11, 51, pressure support of 15. BUN and creatinine 63 and 2.7. IMAGING DATA: X-ray, otherwise, no acute infiltrates, slightly elevated right hemidiaphragm. IMPRESSION: 1. Status post subarachnoid hemorrhage secondary to a fall, on anticoagulation. 2. Respiratory failure. 3. Seizure activity. 4. Traumatic brain injury. PLAN: At this stage, he is not weanable. Started feedings. Started blood pressure medicines via hi s NG tube, try to wean off the Cardene, supportive care, empiric antibiotics. He is thrombocytopenic . We will keep a watch on his platelets. Avoid heparin flush. One half hour critical care time.
--- NOTE | 2017-10-08 15:03 | PRG ---
DATE OF SERVICE: 10/08/2017 SUBJECTIVE: Mr. Crawford is a 67-year-old male that I saw in the ICU this morning. He is status post 1 day from craniotomy and evacuation of subdural hematoma. Overnight, he has been having focal seizu re activity in the right upper extremity and right face. The Diprivan has been turned on, so it is h alverto to get an exam this morning. Dr. Trujillo from Neurology evaluated Mr. Crawford and upped his Keppra d ose from 1000 to 1500. This seems to be helping the seizure condition. After looking at the CT scan , evaluation of subdural hematoma looks good. We will get serial CT scans for the next couple of day s to track any changes with subdural hematoma. On exam, this morning, it is hard to get a neurologic exam due to Diprivan. However, he was withdrawing pain in the left upper extremity. His pupils are equal and reactive to light. Vital signs have been stable overnight; however, there was a period of time where his systolic blood pressure was higher than 140 and in the 150s, so a Cardene drip was in itiated which has controlled his blood pressure well. If there are any further questions, please feel free to contact Neurosurgery.
[2017-10-08 15:17] LABS: Sodium 144 mmol/L (136-145)
[2017-10-08] MEDS ORDERED: Lacosamide 100 MG in Sodium Chloride 0.9% 50 ML IVPB SCH (16:00)
--- NOTE | 2017-10-08 20:09 | PRG ---
DATE OF SERVICE: 10/08/2017 SUBJECTIVE: Mr. Crawford is a pleasant 67-year-old male admitted with the recent fall develo ping into subdural hematoma. He is status post evacuation. He was noted to have right focal motor s eizures. According to the nurse, the patient had a few episodes of right facial and right upper extr emity twitching. We had increased the dose of Keppra to 1500 mg twice daily and he is also on propof ol for sedation. He states that when the propofol is being weaned off, he starts getting right facia l and right upper extremity focal motor seizures coming on. PHYSICAL EXAMINATION: VITAL SIGNS: Blood pressure 117/50, pulse of 81, temperature of 100, respirations of 13 on mechanica l ventilation. GENERAL: Intubated and sedated male. RESPIRATORY: Clear to auscultation bilaterally. CARDIOVASCULAR: Regular rate and rhythm. NEUROLOGICAL: Mental status: The patient is intubated and sedated. When propofol was stopped, ther e was right hand twitching which has progressed to involve entire right upper extremity as well as ri ght side of the face. Cranial nerves: Pupils are 3 mm and reactive. He does breathe over the venti lator machine. There is a positive cough and gag reflex. Motor exam showed flaccid bilateral upper and lower extremity. No response to pressure bilaterally. IMPRESSION: 1. Subdural hematoma, status post evacuation. 2. Focal motor seizures involving the right face and arm, due to #1. ASSESSMENT AND PLAN: Mr. Crawford is a 67-year-old male who presented with a fall which resu lted in a left subdural hematoma. He is status post evacuation, but has developed right-sided focal motor seizures. I had witnessed the event during my examination today in which he had continuous foc al motor seizures involving the right upper extremity and right face when the propofol was discontinu ed. These episodes resolved after propofol was re-initiated. At this time, I would recommend contin uing on Keppra 1500 mg twice daily. I would start him on Vimpat 100 mg b.i.d. I have discussed with the patient's and daughter and explained the findings and future treatment plan. I would try t o maximize the dose of Vimpat to 200 mg twice daily if he continues to have focal motor seizures. If he continues to have the focal motor seizures even with the maximum dose of Keppra and Vimpat then I may add either Dilantin or Depakote to control his spells. Thank you for your consultation.
[2017-10-08] MEDS ORDERED: Valproate Sodium 1,000 MG in Sodium Chloride 0.9% 100 ML IVPB SCH (21:30)
[2017-10-09] MEDS: Propofol 1,000 MG/100 ML VIAL IV PRN ×5 (02:52→18:08)
[2017-10-09 04:53] LABS: Anion Gap 10 mmol/L (10-20); BUN (Urea Nitrogen) 68 mg/dL (8.4-25.7); Calc. Creatinine Clearance 40 mL/min (70-130); Calcium 8.4 mg/dL (7.8-10.44); Carbon Dioxide 22 mmol/L (23-31); Chloride 115 mmol/L (98-107); Estimated GFR-MDRD 24; Glucose 229 mg/dL (80-115); Magnesium 2.5 mg/dL (1.6-2.6); Phosphorus 5.1 mg/dL (2.3-4.7); Potassium 4.3 mmol/L (3.5-5.1); Sodium 143 mmol/L (136-145)
[2017-10-09 04:58] LABS: #Eosinphils 0.1 thou/uL (0.0-0.7); #Lymphocytes 0.8 thou/uL (1.20-3.40); #Monocytes 0.4 thou/uL (0.11-0.59); #Neutrophils 4.8 thou/uL (1.40-6.50); %Basophils 0.4 % (0.0-1.0); %Eosinophils 1.4 % (0.0-10.0); %Lymphocytes 13.4 % (21.0-51.0); %Monocytes 6.9 % (0.0-10.0); %Neutrophils 77.9 % (42.0-75.0); Hemoglobin 9.9 g/dL (14.0-18.0); Mean Corpuscular HGB CONC 35.2 g/dL (32.0-36.0); Mean Corpuscular Hemoglobin 34.6 pg (27.0-31.0); Mean Corpuscular Volume 98.1 fl (80.0-94.0); Mean Platelet Volume 8.4 fL (7.4-10.4); Platelet Count 90 thou/uL (130-400); RBC Distribution Width 13.4 % (11.5-14.5); Red Blood Cell (RBC) Count 2.88 mill/uL (4.70-6.10); White Blood Cell (WBC) Count 6.2 thou/uL (4.8-10.8)
[2017-10-09] MEDS: HumaLOG 300 UNITS/3 ML VIAL SC PRN ×3 (04:59→15:03)
[2017-10-09] MEDS: Piperacillin/Tazobactam 2.25 GM in Sodium Chloride 0.9% 100 ML IVPB SCH (05:00)
[2017-10-09] MEDS: CEFAZOLIN/Water 2 GM/20 ML SYRINGE SLOW IVP SCH ×3 (05:01→21:38)
--- NOTE | 2017-10-09 07:05 | PRG ---
DATE OF SERVICE: 10/09/2017 SUBJECTIVE: Mr. Crawford is 2 days out from craniotomy and evacuation of subdural hematoma. Overnight , his drain output from craniotomy incision has been approximately 45 mL. He continues to have diffic ulty with focal motor seizures involving the right face and right upper extremity. Mr. Crawford was on 50 units of propofol this morning when I did my exam. His pupils are minimally reactive to light bi laterally and I could not get a good response to pain in the upper and lower extremities bilaterally. He had a repeat CT scan this morning that does not look any different than the previous scan taken on the day before. Overnight, I was called because he had briefly lost a gag and cough reflex. The gag and cough reflex has returned after approximately 10 minutes. He also continues to have right-si ded upper extremity and facial seizures. Dr. Trujillo was contacted and our colleagues in Neurology and is close to maxing out all the anti-seizure medications. He has no new neurologic deficits on exam t his morning. It was hard to accurately get a good neurologic exam with a dose of propofol at 50. We will continue to try to control the focal motor seizure deficits with medications and with the help of Neurology. If there are any further questions, please feel free to contact Neurosurgery.
[2017-10-09] MEDS: Famotidine/PF 20 mg/2ml Vial SLOW IVP SCH (07:52)
[2017-10-09] MEDS: Metoprolol Tartrate 50 MG TAB PO SCH ×2 (07:52→21:38)
[2017-10-09] MEDS: Sodium Chloride 0.9% 1,000 ML IV SCH ×2 (07:53→21:40)
[2017-10-09] MEDS: Docusate Sodium 100 MG/10 ML UDCUP PO SCH ×2 (07:53→21:38)
[2017-10-09] MEDS: Valproate Sodium 500 MG in Sodium Chloride 0.9% 100 ML IVPB SCH ×2 (08:00→21:38)
--- NOTE | 2017-10-09 08:14 | CT ---
FINAL REPORT: CT HEAD: DATE: 10/09/17. TIME: 3:42 a.m. COMPARISON: Comparison is made to the 10/08/17 study. FINDINGS/IMPRESSION: Postop craniotomy changes on the left. There continues to be subarachnoid blood. There is a focal h ematoma within the parenchyma peripherally at the operative site which is unchanged. Pneumocephalus again noted. No significant interval change. I am in agreement with the preliminary report. POS: [facility]
[2017-10-09] MEDS: levETIRAcetam In NaCl (Iso-Os) 1,500 MG in Premix Bag 1 BAG IVPB SCH ×4 (08:16→21:38)
[2017-10-09] MEDS ORDERED: Lacosamide 100 MG in Sodium Chloride 0.9% 50 ML IVPB SCH (09:00)
[2017-10-09] MEDS ORDERED: Cefepime 1 GM in Sodium Chloride 0.9% 100 ML IVPB SCH (09:00)
[2017-10-09] MEDS: Insulin Detemir 100 UNITS/ML 10 UNITS in Pre-Filled Syringe 1 EACH SC SCH ×2 (09:05→21:39)
[2017-10-09] MEDS: Cefepime 1 GM, Admixture Fee 1 EACH in Sterile Water 10 ML SLOW IVP SCH ×2 (10:16→21:49)
--- NOTE | 2017-10-09 11:03 | PRG ---
DATE OF SERVICE: 10/09/2017 Neurosurgery progress note SUBJECTIVE: I saw Mr. Crawford in his ICU room this morning. Yesterday, we tried to wean off the prop ofol multiple times and each time, seizure activity came back in the right upper extremity and to a l estefani extent in the right face. As propofol turned back up, the seizure activity goes away. He is s till awake enough to follow any commands. Repeat CT examination of the brain was performed and his s wes sodium follow up was done yesterday and this morning. On examination this morning, he is sedated. His cranial nerves are intact. We cannot wean the sedat ion in order to get any meaningful neurological examination. CT examination of the brain still shows completely open basal cisterns and sylvian cisterns. The mas s effect from the subdural hematoma is much less. The contusion within the posterior frontal lobe/mo tor strip is still there, but has not increased in size. There is no more shift. There is no more m ass effect. Serum sodium remains in the mid 140s. My plan is to continue with current management. Hopefully, the use of Keppra 1500 mg b.i.d. in addit ion of Vimpat controls the seizures, so we can wean the sedation. We will have neurological examinat ion to follow. I am still not terribly worried about any increased intracranial pressure. CT examin ation looks quite reassuring.
[2017-10-09] MEDS ORDERED: Lidocaine 1% (PF) 30 ML VIAL ONE (14:51)
[2017-10-09] MEDS ORDERED: Lidocaine 1% w/Epinephrine 1:200K 30 ML VIAL ONE (14:51)
[2017-10-09 15:13] LABS: Sodium 145 mmol/L (136-145)
--- NOTE | 2017-10-09 16:19 | PRG ---
DATE OF SERVICE: 10/09/2017 SUBJECTIVE: Mr. Crawford is an unfortunate gentleman, intubated on the vent. OBJECTIVE: VITAL SIGNS: Blood pressure 102/48, sats 90%, respirations 18. CHEST: Chest reveals decreased breath sounds, no wheezing. CARDIAC: Normal S1, S2, no gallops. ABDOMEN: Soft. LABORATORY DATA: His white count 6000, H&H is 9 and 28, platelet count is low at 90. His creatinine is 2.7 and BUN is 68. 22. He is having difficulty handling his tube feedings. IMAGING: CT head, post-craniotomy and evacuation of subdural focal hematoma within the parenchyma peripherally. IMPRESSION: Ongoing status epilepticus on multiple medications at this stage including Versed at 8 mg an hour, Keppra 1500 twice a day, lacosamide 100 mg twice a day, Ativan 2 mg q.2 hours, Diprivan, valproic acid 500 mg twice a day. His last x-ray showed atelectasis. PLAN: Continue supportive care, nutrition, PT. It is clearly not weanable at this stage until his seizure activity improves. One-half hour critical care time. [facility]
[2017-10-09] MEDS ORDERED: Lacosamide 200 MG in Sodium Chloride 0.9% 50 ML IVPB SCH (16:30)
--- NOTE | 2017-10-09 18:40 | PRG ---
DATE OF SERVICE: 10/09/2017 SUBJECTIVE: Mr. Crawford who is a 67-year-old male presented with the fall resulting in left subdural hematoma. He is status post evacuation. He was noted to be in . He has been on Kepp ra and Vimpat was added yesterday afternoon. According to the nurse, he continues to have focal james r seizures involving the right side of the hand, arm and face. We have added Depakote on top of the Keppra and Vimpat. He was also started on Versed along with propofol for sedation. Nurse reports th at as long as he is on propofol and Versed, he does not have any seizures. As soon as these are stop ped, he develops focal motor seizures involving the right upper extremity and right side of the face. PHYSICAL EXAMINATION: VITAL SIGNS: Blood pressure of 106/52, pulse of 63, temperature of 98.0, respirations of 9 on mechan ical ventilation. GENERAL: Intubated and sedated male. RESPIRATORY: Clear to auscultation bilaterally. CARDIOVASCULAR: Regular rate and rhythm. NEUROLOGICAL: Mental status: The patient is intubated and sedated. I have taken him off of sedatio n for 2 minutes after which he started having focal motor seizures involving the right face and arm. Cranial nerves: Pupils are 3 mm and reactive. He has a positive cough and gag reflex. He does angela athe over the ventilator machine. Motor exam showed focal motor seizures involving the right upper e xtremity and right side of the face. No response to pressure in both upper and lower extremities. LABORATORY DATA: Reviewed, which included CBC, BMP, magnesium, phosphorus, lactic acid and urinalysi s, which is significant for hemoglobin 9.9, hematocrit of 28.2, platelet count of 90, BUN of 68, crea tinine of 2.7, glucose of 196, phosphorus of 5.1, otherwise unremarkable. IMPRESSION: 1. Focal motor seizures, status epilepticus. 2. Left-sided subdural hematoma, status post evacuation. Mr. Crawford is a 67-year-old male who presented with the left subdural hematoma, status post evacuation. He is noted to have continuous focal motor seizures involving the right upper extremity and right side of the face. These are better when he is on sedation with propofol and Versed. At t his time, I have increased the dose of the Vimpat to 200 mg twice a day. I would recommend continue him on Keppra 1500 mg b.i.d. I would check Depakote level in the morning and if it is less than 50, then I will increase the dose of Depakote to 1000 mg b.i.d., continue supportive care. Continue curr ent medical management. Thank you for your consultation.
[2017-10-09 19:30] LABS: #Eosinphils 0.1 thou/uL (0.0-0.7); #Lymphocytes 0.8 thou/uL (1.20-3.40); #Monocytes 0.3 thou/uL (0.11-0.59); #Neutrophils 4.4 thou/uL (1.40-6.50); %Basophils 0.3 % (0.0-1.0); %Eosinophils 2.3 % (0.0-10.0); %Lymphocytes 13.3 % (21.0-51.0); %Monocytes 5.9 % (0.0-10.0); %Neutrophils 78.2 % (42.0-75.0); Hemoglobin 9.9 g/dL (14.0-18.0); Mean Corpuscular HGB CONC 33.4 g/dL (32.0-36.0); Mean Corpuscular Volume 98.7 fl (80.0-94.0); Mean Platelet Volume 8.4 fL (7.4-10.4); Platelet Count 86 thou/uL (130-400); RBC Distribution Width 13.5 % (11.5-14.5); Red Blood Cell (RBC) Count 2.99 mill/uL (4.70-6.10); White Blood Cell (WBC) Count 5.7 thou/uL (4.8-10.8)
[2017-10-09 19:36] LABS: INR-International Normal Ratio 1.5; PTT 37.6 SEC (22.9-36.1); Prothrombin Time 18.3 SEC (12.0-14.7)
[2017-10-09] MEDS: Vancomycin HCl 1.25 GM in Sodium Chloride 0.9% 250 ML 250 ML IVPB SCH (23:15)
[2017-10-10] MEDS: Propofol 1,000 MG/100 ML VIAL IV PRN ×4 (03:00→21:42)
[2017-10-10] MEDS: CEFAZOLIN/Water 2 GM/20 ML SYRINGE SLOW IVP SCH (05:31)
[2017-10-10] MEDS: Sodium Chloride 0.9% 1,000 ML IV SCH (05:31)
[2017-10-10] MEDS: HumaLOG 300 UNITS/3 ML VIAL SC PRN ×3 (05:45→16:38)
[2017-10-10 05:58] LABS: #Eosinphils 0.1 thou/uL (0.0-0.7); #Lymphocytes 0.5 thou/uL (1.20-3.40); #Monocytes 0.4 thou/uL (0.11-0.59); #Neutrophils 4.5 thou/uL (1.40-6.50); %Basophils 0.2 % (0.0-1.0); %Eosinophils 1.8 % (0.0-10.0); %Lymphocytes 8.9 % (21.0-51.0); %Monocytes 6.6 % (0.0-10.0); %Neutrophils 82.6 % (42.0-75.0); Hemoglobin 9.9 g/dL (14.0-18.0); Mean Corpuscular HGB CONC 33.7 g/dL (32.0-36.0); Mean Corpuscular Hemoglobin 33.2 pg (27.0-31.0); Mean Corpuscular Volume 98.4 fl (80.0-94.0); Mean Platelet Volume 8.4 fL (7.4-10.4); Platelet Count 92 thou/uL (130-400); RBC Distribution Width 13.4 % (11.5-14.5); Red Blood Cell (RBC) Count 2.98 mill/uL (4.70-6.10); White Blood Cell (WBC) Count 5.5 thou/uL (4.8-10.8)
[2017-10-10 06:12] LABS: ALT (SGPT) Less than 7 U/L (8-55); AST (SGOT) 22 U/L (5-34); Albumin 2.8 g/dL (3.4-4.8); Alkaline Phosphatase 51 U/L (40-150); Bilirubin, Direct 0.1 mg/dL (0.1-0.3); Bilirubin, Total Less than 0.2 mg/dL (0.2-1.2); Protein, Total 6.2 g/dL (5.8-8.1)
[2017-10-10 06:21] LABS: Anion Gap 17 mmol/L (10-20); BUN (Urea Nitrogen) 73 mg/dL (8.4-25.7); Calc. Creatinine Clearance 36 mL/min (70-130); Calcium 8.2 mg/dL (7.8-10.44); Carbon Dioxide 18 mmol/L (23-31); Chloride 117 mmol/L (98-107); Estimated GFR-MDRD 21; Glucose 200 mg/dL (80-115); Magnesium 2.8 mg/dL (1.6-2.6); Phosphorus 6.2 mg/dL (2.3-4.7); Potassium 4.5 mmol/L (3.5-5.1); Sodium 147 mmol/L (136-145)
--- NOTE | 2017-10-10 07:03 | OP ---
DATE OF PROCEDURE: 10/09/2017 HISTORY OF PRESENT ILLNESS: Mr. Crawford is a 67-year-old male who is in need of intracranial pressure monitor to evaluate intracranial pressure. DIAGNOSIS: Increased Intracranial Pressure Procedure was performed at [facility]. PHYSICIAN DEPARTMENT SUPERVISOR: Sam Henriquez PA-C SUPERVISING PHYSICIAN: Dr. Buckner. OPERATIVE PROCEDURE: Right-sided intracranial pressure Praneeth bolt placement to monitor intracranial pressure. PREOPERATIVE MEDICATION: The patient is taking scheduled Ancef q.8 hours. DESCRIPTION OF PROCEDURE: The patient has had head of bed was brought to 45 degrees. His hair was already shaved on the right side of the head. The scalp was sterilely prepped with Dura prep and draped. I injected 5 ml of 1% lidocain with Epi into the scalp on over the incision which helped to control the bleeding. I opened the skin and subgaleal layer with a 15 blade knife at [place]. A retractor was placed in the 2 cm incision and the handheld drill was used. I drilled through the outer cortex inner cancellous bone and inner table until I felt the drill sink through the inner table. I then retracted the drill. I placed the bolt in the pre-drilled hole and screwed the bolt into the skull. I took a small probe and made sure that I was through the inner table and felt dura. I then hooked up the pressure sensor to the monitor and zero calibrated it. I put the pressure sensor through the bolt and was able to get a good waveform. I then tightened the bolt, so the pressure monitor would stay in place. I took suture and used 2-0 silk suture pursestring knot around the bolt to keep that skin intact. I also used 3 reese to close the incision. I then put a dressing around the bolt and taped down the dressing with Medipore tape. The ICP was shown with normal triple waves, it was ranging between 8 and [id number]. After suturing the incision, I used iodine to clean around the incision once the bolt was in place. The procedure was a clean case , no contamination noted. Bleeding approximately 5 mL. Prior to this operation, platelet count, coags were taken as labs. The patient will continue antibiotics as long as the ICP monitor is in place. We will get a repeat CT scan of the brain in the morning. [facility]
--- NOTE | 2017-10-10 07:40 | RAD ---
EXAM: CHEST 1 VIEW: HISTORY: Respiratory [id number]. Ventilated patient. 10/08/17. FINDINGS: Endotracheal and nasogastric tube are noted. Stable left-sided MediPort catheter and central venous catheter. There are persistent bibasilar pleural and parenchymal changes. Lung volumes continue to be diminished. Limited evaluation of the cardiac silhouette. No pneumothorax. IMPRESSION: Worsening bibasilar pleural and parenchymal changes. Continued surveillance. POS: [facility]
[2017-10-10] MEDS: Famotidine/PF 20 mg/2ml Vial SLOW IVP SCH (08:40)
[2017-10-10] MEDS: Metoprolol Tartrate 50 MG TAB PO SCH ×2 (08:41→21:42)
[2017-10-10] MEDS: Docusate Sodium 100 MG/10 ML UDCUP PO SCH ×2 (08:41→21:43)
[2017-10-10] MEDS: Valproate Sodium 500 MG in Sodium Chloride 0.9% 100 ML IVPB SCH (08:41)
[2017-10-10] MEDS: levETIRAcetam In NaCl (Iso-Os) 1,500 MG in Premix Bag 1 BAG IVPB SCH ×4 (09:01→21:42)
[2017-10-10] MEDS: Cefepime 1 GM, Admixture Fee 1 EACH in Sterile Water 10 ML SLOW IVP SCH ×2 (09:01→21:42)
--- NOTE | 2017-10-10 09:16 | CT ---
PRELIMINARY REPORT/[facility]/EMERGENCY AFTER HOURS PROCEDURE: EXAM: CT Head Without Intravenous Contrast EXAM DATE/TIME: Exam ordered 10/10/2017 3:13 AM CLINICAL HISTORY: 67 years old, male; Condition or disease; Other: F/u sdh; Prior surgery; Surgery date: Post-operative (0-2 days); Patient HX: S/P sdh, icp monitor TECHNIQUE: Axial computed tomography images of the head/brain without intravenous contrast. COMPARISON: CT Brain WO Con 2017-10-09 03:41 FINDINGS: Brain: Redemonstrated is subarachnoid hemorrhage involving the LEFT frontotemporoparietal lobes, unch anged from prior. No significant white matter disease. Ventricles: There is trace hemorrhage within the occipital horns, stable. The ventricles are minimall y prominent, unchanged from prior. Bones/joints: Patient is status post LEFT craniotomy with typical postoperative changes including sof t tissue swelling and pneumocephalus. Soft tissues: See above. Sinuses: Unremarkable as visualized. No acute sinusitis. Mastoid air cells: Unremarkable as visualized. No mastoid effusion. Tubes, lines and devices: An intracranial probe is seen entering from the RIGHT frontal scalp. A naso gastric tube is partially visualized. IMPRESSION: Redemonstrated is subarachnoid hemorrhage involving the LEFT frontotemporoparietal lobes, unchanged f rom prior. Thank you for allowing us to participate in the care of your patient. Dictated and Authenticated by: Ricky Cruz MD 10/10/2017 3:49 AM Central Time ([place] & [place] Daniel) FINAL REPORT NONCONTRAST HEAD CT: Date: 10/10/17 COMPARISON: 10/09/17. HISTORY: Status post subdural hematoma. Intracranial pressure monitor. TECHNIQUE: Noncontrast head CT is performed from skull base to skull vertex. FINDINGS: This report is in agreement with the preliminary report by [facility]. Redemonstration of postoperative ashanti nges. There is redemonstration of intra-axial hemorrhage, predominantly subarachnoid in location. Sma ll amount of subdural blood is noted near the left temporal convexity. Calvarial defects and overlyin g subcutaneous scalp emphysema and swelling are noted. There is an internal cranial pressure monitor that has been placed since the prior examination with the distal tip in the right frontal deep white matter. POS: PPP
--- NOTE | 2017-10-10 09:18 | PRG ---
DATE OF SERVICE: 10/10/2017 SUBJECTIVE: Mr. Crawford is intubated and sedated. REVIEW OF SYSTEMS: Not obtainable. PHYSICAL EXAMINATION: VITAL SIGNS: Blood pressure 118/53, pulse 83, sinus. LUNGS: Diffuse scattered wheezing, no rales or rhonchi. CARDIAC: Normal S1, S2 with crisp prosthetic valve sounds. ABDOMEN: Soft and nontender. ASSESSMENT: 1. Status post subdural hematoma with subsequent craniotomy. 2. Mechanical aortic valve replacement. 3. Previous bypass. 4. Status post non-ST elevation infarction. 5. Diabetes. 6. Peripheral disease. PLAN: Continue current medical regimen including intravenous beta blockers to help control heart rat e. Prognosis is guarded in this gentleman.
[2017-10-10] MEDS: Lacosamide 200 MG in Sodium Chloride 0.9% 50 ML IVPB SCH ×2 (09:25→22:05)
[2017-10-10] MEDS: Insulin Detemir 100 UNITS/ML 10 UNITS in Pre-Filled Syringe 1 EACH SC SCH ×2 (09:30→21:43)
--- NOTE | 2017-10-10 10:23 | PRG ---
DATE OF SERVICE: 10/10/2017 Mr. Crawford is postoperative day 3 from left-sided craniotomy for acute subdural hematoma evacuations. His head CT is satisfactory. He has a known cerebral contusion from his fall. This has been an is alexey clinically as he is having recalcitrant seizures with the semiology in the left motor strip regio n involving the right face and right arm. He is now on Vimpat and Keppra. An ICP monitor was placed yesterday evening to assess intracranial pressure and it has been normal overnight with the high pre ssure appearing to be in the 12 mmHg range. We will remove the ICP monitor this morning as his press ures have not been an issue. We will continue to follow him closely. I have also conferred with Dr. Trujillo and I met with his family and indicated the seizures are the main issue at this point. We will also arrange for an ultrasound of the lower extremities.
--- NOTE | 2017-10-10 10:36 | OP ---
DATE OF SURGERY: 10/07/2017 SURGEON: Marcelo Nielsen M.D. RETORT FIREMAN: Luther Dennis PA-C A modifier 57 should be added to this surgery's decision to operate. It was made on the day I saw th e patient. PREPROCEDURE DIAGNOSES: Neurological decline, left acute subdural hematoma and chen-rolandic cerebra l contusion, status post fall and anticoagulant and antiplatelet medicines. POSTPROCEDURE DIAGNOSES: Neurological decline, left acute subdural hematoma and chen-rolandic cerebr al contusion, status post fall and anticoagulant and antiplatelet medicines. PROCEDURE PERFORMED: Left-sided frontotemporal craniotomy for evacuation of acute subdural hematoma. DESCRIPTION OF PROCEDURE: After informed consent was obtained from the patient's , the patient w as brought to OR. Proper patient pause and identification on the left side was exposed. Hair was cl ipped in this region and a question donte incision drawn out, this region was sterilely cleansed, prep ared, and draped. Proper patient pause and identification was carried out. The head had been secure d in the Bello taryn and following proper patient pause and identification, the incision was guadarrama ied out and the scalp flap reflected. [place] holes were fashioned, craniotomy turned. The dura was op ened, subdural hematoma identified and removed. Cerebral contusion was quite evident and in chen-rol andic region. Obviously, I suspect when his subdural hematoma was removed, a small leaking vein was identified and this was cauterized. I suspect this is what cerebral contusion and brain laceration f rom his fall related to a subdural hematoma. Copious irrigation occurred. Hemostasis was maximized. The dura was then closed. The bone flap reapproximated with plates and screws and the scalp closed in anatomic layers over a drain. The patient then was taken upstairs.
--- NOTE | 2017-10-10 10:50 | PRG ---
DATE OF SERVICE: 12/11/2016 SERVICE: Pulmonary Medicine INTERVAL HISTORY: The patient is doing fine from a respiratory standpoint. His mentation is doing poorly. Yesterday, he had a bolt that was placed. ICP was normal, it was subsequently removed. Every time we wake him up from sedation, he continues to have ongoing seizure activity. As such, we will make another attempt at some point today to wean the sedation to see whether or not he is continuing to have seizure. Neurology is following on a daily basis as is Neurosurgery. Oxygen requirements are quite low. Otherwise, there has been no significant change in his condition. PHYSICAL EXAMINATION: VITAL SIGNS: Afebrile. Pulse 69, blood pressure 135/60, respirations 25, saturation 98% on room air. GENERAL: The patient is intubated. He is under the influence of sedation and cannot provide additional elements of the history. HEENT: Normocephalic, atraumatic. Sclerae are white, conjunctivae pink. Oral mucosa is moist without lesions. LUNGS: Decent air entry bilaterally with no prolonged expiratory phase, wheezing, rhonchi or crackles. HEART: Normal rate, regular. ABDOMEN: Soft, nontender, nondistended. Bowel sounds are positive. MUSCULOSKELETAL: No cyanosis or clubbing. No pitting in the bilateral lower extremities. NEUROLOGIC: Grossly nonfocal. LABORATORY DATA: WBC 5.5, hemoglobin 9.9, platelets 92,000, stable. INR 1.5. Creatinine 2.98. This is up trending, but getting to the peak of our curve. Bicarbonate 18, chloride 117, sodium 147. Phosphorus 6.2, magnesium 2.8. Total bilirubin is low. AST, ALT and alkaline phosphatase are also normal. Blood cultures x2, respiratory culture, urine culture are all unremarkable. IMAGING: CT brain demonstrates intraaxial hemorrhage predominantly subarachnoid in location with a small amount of subdural blood. Scalp emphysema and swelling are noted. Interval placement of a bolt is present. ASSESSMENT: 1. Acute hypoxic respiratory failure. 2. Community-acquired pulmonary infiltrate, likely atelectasis, but community- acquired pneumonia is a possibility. 3. Subdural hematoma, subarachnoid hemorrhage. 4. Status epilepticus. 5. Non-ST elevation myocardial infarction. 6. History of aortic valve replacement, requiring anticoagulation at some future time. PLAN: Once again, we will hold sedation and see whether or not the seizure activity recurs. If it does will need to put him back down probably for a good 24-48 hours. Pulmonary will continue to follow while the patient remains in this location and in this state. Antibiotics will be titrated up a little bit as were covering the same pathogens in several different ways. I will continue to follow. Critical care time: 30 minutes. JAVI
[2017-10-10 15:24] LABS: Sodium 146 mmol/L (136-145)
--- NOTE | 2017-10-10 16:03 | ULT ---
BILATERAL LOWER EXTREMITY VENOUS DOPPLER ULTRASOUND: Date: 10/10/17 HISTORY: Recent surgery, impaired mobility, bilateral lower extremity edema. TECHNIQUE: Holly scale ultrasound with color flow and spectral Doppler imaging of the deep venous systems of the lower extremities was performed bilaterally. FINDINGS: There is good flow, compression, and augmentation noted in the common femoral, femoral, deep femoral, popliteal, posterior tibial, and greater saphenous veins on either side. IMPRESSION: No evidence of deep venous thrombosis in either lower extremity. POS: Lyla
[2017-10-10] MEDS: Sodium Chloride 0.45% 1,000 ML IV SCH (16:39)
--- NOTE | 2017-10-10 21:18 | PRG ---
DATE OF SERVICE: 10/10/2017 SUBJECTIVE: Mr. Crawford continues to have focal motor seizures involving the right face and arm. Per RN, when he is taken off sedation with propofol and Versed, he starts having focal motor seizures in volving that side. PHYSICAL EXAMINATION: VITAL SIGNS: Blood pressure 121/48, pulse of 84, temperature of 99.8, respirations of 29 on rigging and controls aircraft mechanic al ventilation. GENERAL: Intubated, sedated male. RESPIRATORY: Clear to auscultation bilaterally. CARDIOVASCULAR: Regular rate and rhythm. NEUROLOGIC: Essentially unchanged when compared to yesterday. LABORATORY DATA: I reviewed, which included CBC, BMP; Depakote level, which is significant for hemog lobin 9.9, hematocrit of 29.3. Sodium of 146, BUN of 73, creatinine of 2.98, Depakote level of 23.6, otherwise unremarkable. IMPRESSION: 1. Simple partialis continua. 2. Subdural hematoma, status post evacuation. Mr. Crawford continues to have focal motor seizures involving the right upper face and right upper extr emity. He is already maximized on the dosage of Keppra and Vimpat. I will increase the dose of the Depakote to 1000 mg twice daily. I will recheck the Depakote level in the morning. I will explain t o the with the current treatment plan. I will add Dilantin 100 mg t.i.d. if he continues to hav e focal motor seizures. I also explained to the and daughter that if he continues to have the s pells without any improvement with 3 maximized antiepileptic medication then we may have to put him o n the phenobarbital. I will continue to monitor his progress.
[2017-10-10] MEDS: Acetaminophen 325 MG TAB PO PRN (21:42)
[2017-10-10] MEDS: Valproate Sodium 1,000 MG in Sodium Chloride 0.9% 100 ML IVPB SCH (21:42)
[2017-10-10] MEDS: Vancomycin HCl 1.25 GM in Sodium Chloride 0.9% 250 ML 250 ML IVPB SCH (23:35)
[2017-10-11] MEDS: Propofol 1,000 MG/100 ML VIAL IV PRN (04:00)
[2017-10-11 05:51] LABS: Anion Gap 14 mmol/L (10-20); BUN (Urea Nitrogen) 77 mg/dL (8.4-25.7); Calc. Creatinine Clearance 0 mL/min (70-130); Calcium 8.2 mg/dL (7.8-10.44); Carbon Dioxide 17 mmol/L (23-31); Chloride 119 mmol/L (98-107); Estimated GFR-MDRD 18; Glucose 150 mg/dL (80-115); Potassium 4.2 mmol/L (3.5-5.1); Sodium 146 mmol/L (136-145)
[2017-10-11 06:00] LABS: #Eosinphils 0.1 thou/uL (0.0-0.7); #Lymphocytes 0.3 thou/uL (1.20-3.40); #Monocytes 0.4 thou/uL (0.11-0.59); #Neutrophils 4.4 thou/uL (1.40-6.50); %Basophils 0.1 % (0.0-1.0); %Eosinophils 1.7 % (0.0-10.0); %Lymphocytes 6.2 % (21.0-51.0); %Monocytes 8.2 % (0.0-10.0); %Neutrophils 83.8 % (42.0-75.0); Hemoglobin 9.5 g/dL (14.0-18.0); Mean Corpuscular HGB CONC 33.3 g/dL (32.0-36.0); Mean Corpuscular Hemoglobin 32.9 pg (27.0-31.0); Mean Platelet Volume 8.8 fL (7.4-10.4); Platelet Count 105 thou/uL (130-400); RBC Distribution Width 13.6 % (11.5-14.5); Red Blood Cell (RBC) Count 2.89 mill/uL (4.70-6.10); White Blood Cell (WBC) Count 5.2 thou/uL (4.8-10.8)
[2017-10-11] MEDS: Sodium Chloride 0.9% 1,000 ML IV SCH ×2 (07:51→17:43)
[2017-10-11] MEDS: Metoprolol Tartrate 50 MG TAB PO SCH ×2 (08:35→19:59)
[2017-10-11] MEDS: Famotidine/PF 20 mg/2ml Vial SLOW IVP SCH (08:35)
[2017-10-11] MEDS: levETIRAcetam In NaCl (Iso-Os) 1,500 MG in Premix Bag 1 BAG IVPB SCH ×4 (08:36→20:38)
[2017-10-11] MEDS: Insulin Detemir 100 UNITS/ML 10 UNITS in Pre-Filled Syringe 1 EACH SC SCH ×2 (08:36→20:38)
[2017-10-11] MEDS: Docusate Sodium 100 MG/10 ML UDCUP PO SCH ×3 (08:37→20:40)
[2017-10-11] MEDS: Cefepime 1 GM, Admixture Fee 1 EACH in Sterile Water 10 ML SLOW IVP SCH ×2 (08:46→19:59)
[2017-10-11] MEDS: Valproate Sodium 1,000 MG in Sodium Chloride 0.9% 100 ML IVPB SCH ×2 (09:12→20:38)
[2017-10-11] MEDS: Famotidine 20 MG TAB PER TUBE SCH (09:13)
[2017-10-11] MEDS: Lacosamide 200 MG in Sodium Chloride 0.9% 50 ML IVPB SCH ×2 (10:08→20:53)
--- NOTE | 2017-10-11 10:51 | PRG ---
DATE OF SERVICE: 10/11/2017 Will continue to combat seizures with Mr. Crawford every time his sedation which includes propofol and Versed is lifted, he does have focal motor seizures of the right face and right arm consistent with h is left motor strip contusion from his fall. Head CT again this morning demonstrates expected postop erative changes, but no evidence of worrisome neurosurgical abnormality. The contusion continues to be the main issue in its location. We are going to initiate following discussion with MADHURI Ansari today. We are also working on his renal insufficiency as he has had elevation of his creatinine to 3.43, up from 1.35. I suspect this is related to his myocardial infarct. I have updated his family . Of note, his wounds are healing well. His pupils are equal, round, and reactive to light.
--- NOTE | 2017-10-11 11:53 | CT ---
PRELIMINARY REPORT/[facility]/EMERGENCY AFTER HOURS PROCEDURE: EXAM: CT Head Without Intravenous Contrast CLINICAL HISTORY: 67 years old, male; Condition or disease; Other: Bleed; Prior surgery; Patient HX: F/u subdural hemat blossom TECHNIQUE: Axial computed tomography images of the head/brain without intravenous contrast. COMPARISON: CT Brain WO Con 2017-10-10 03:13 FINDINGS: Grossly stable left-sided craniotomies and jame holes. Subjacent subarachnoid/intraparenchymal hemorr hages and pneumocephalus are grossly stable. Interval removal of the right frontal intracranial pressure monitor with presumed faint hemorrhage in the right frontal lobe. The ventricles are grossly stable with small intraventricular hemorrhage. Mi nimal pneumocephalus noted on the right No midline shift, acute territorial infarction or cisternal effacement.There is mild mucosal thickeni ng of the bilateral ethmoid air cells.The remainder of the visualized paranasal sinuses are grossly c lear. IMPRESSION: Status post removal of right-sided intracranial pressure monitor with minimal residual hemorrhage in the right frontal lobe Otherwise, grossly stable noncontrast CT appearance to the brain Thank you for allowing us to participate in the care of your patient. Dictated and Authenticated by: Mike Centeno MD 10/11/2017 4:48 AM Central Time ([place] & [place]) FINAL REPORT NONCONTRAST HEAD CT: Date: 10/11/17 COMPARISON: 10/10/17. HISTORY: Follow-up intracranial hemorrhage. TECHNIQUE: A noncontrast head CT is performed from the skull base to the skull vertex. FINDINGS: This report is in agreement with the preliminary report by [facility]. Stable postoperative changes. Stable hemorrhage in the subarachnoid space and possible small parenchymal hematoma in the left temporal lo be. Redemonstration of intraventricular blood in the dependent portion of both lateral ventricles. In terval removal of intracranial pressure monitor with residual hemorrhage. Possible small lipoma along the posterior falx, of doubtful significance. POS: PPP
--- NOTE | 2017-10-11 12:08 | PRG ---
DATE OF SERVICE: 10/11/2017 SERVICE: Pulmonary Medicine. INTERVAL HISTORY: The patient is doing fine from a cardiovascular and respiratory standpoint. He is breathing comfortably. He is on mechanical ventilation. He is breathing comfortably over the venti lator with no difficulties. His heart has been fine. Blood pressure has been excellent. He is deve loping more of an acute kidney injury. Mentation zamarripa, every time we hold sedation, he has ongoing s eizure activity, which prompt us to increase his sedation once again. PHYSICAL EXAMINATION: VITAL SIGNS: Afebrile with a T-max of 100.5, pulse 68, blood pressure 129/55, respirations 23, satur ation 95% on 27% FiO2 and PEEP of 5. GENERAL: The patient is intubated. He is under the influence of some sedation. HEENT: Normocephalic and atraumatic. Sclerae are white, conjunctivae pink. Oral and nasal mucosa i s moist without lesions. LUNGS: Decent air entry. Dependent crackles are minimal. HEART: Normal rate and regular. ABDOMEN: Soft, nontender and nondistended. Bowel sounds are positive. MUSCULOSKELETAL: No cyanosis or clubbing. There is no pitting in the bilateral lower extremities. LABORATORY DATA: WBC 5.2, hemoglobin 9.5 and stable, platelets 105,000 and also stable. INR 1.5. A nion gap is normal at 14, bicarbonate is 17 and roughly stable. Chloride 119, sodium 146. Creatinin e is increasing to 3.43 with a BUN of 77. Blood sugars all remain stable. Calcium falls within the normal limits. Blood cultures x2. Respiratory culture, and urine culture are all negative to date. IMAGING DATA: CT of the brain demonstrates persistence in the subarachnoid hemorrhage with no signif icant midline shift. Official read is currently pending. ASSESSMENT: 1. Acute hypoxic respiratory failure. 2. Pulmonary infiltrate, likely representing atelectasis, community-acquired pneumonia is not exclud ed. 3. Subarachnoid hemorrhage with subdural hematoma. 4. Status epilepticus. 5. Non-ST elevation myocardial infarction. 6. Acute kidney injury. 7. History of [place] valve replacement, requiring anticoagulation at some future time. PLAN: The patient is going to be initiated on a continuous EEG monitor while we lighten up sedation to see whether or not he has onset of seizure activity. At present, we will need to put him down for 24-48 hours and reboot his brain at that time. An ultrasound of the kidneys will be performed to ve rify the patient does not have any obstructive uropathy. He will remain on mechanical ventilation as at this time, his mentation prevents further weaning. CRITICAL CARE TIME: 30 minutes.
--- NOTE | 2017-10-11 14:08 | ULT ---
ULTRASOUND RENAL BILATERAL STANDARD: Date: 10/11/17 HISTORY: Acute kidney injury. COMPARISON: 2008. FINDINGS: Right kidney measures 13.5 x 5.9 x 6.8 cm. Left kidney measures 14.6 x 6.5 x 6.0 cm. The urinary blad robert has an indwelling Barber catheter and is collapsed. No renal mass, hydronephrosis, or abnormal mauricio cifications. IMPRESSION: No evidence of obstructive uropathy. POS: [id number]
[2017-10-11] MEDS: Metoprolol Tartrate 5 MG/5 ML VIAL IVP PRN (14:48)
[2017-10-11] MEDS: niCARdipine HCl 50 MG in Sodium Chloride 0.9% 250 ML 230 ML IVPB SCH ×2 (15:29→22:10)
--- NOTE | 2017-10-11 16:29 | PRG ---
DATE OF SERVICE: 10/11/2017 SUBJECTIVE: Mr. Crawford is a 67-year-old male, who presented with a fall resulting in subdu ral hematoma. He is status post evacuation. He has developed status epilepticus with focal motor se izures involving right face and right upper extremity. Per RN, he has been off sedation for approxim ately 4 hours now without any focal motor seizures noted. There has not been any significant change in his neurological exam over the past 24 hours. PHYSICAL EXAMINATION: VITAL SIGNS: Blood pressure 182/61, pulse of 75, temperature of 99.1. He is on mechanical ventilati on. GENERAL: Intubated, nonsedated for approximately 4 hours, male. RESPIRATORY: Clear to auscultation bilaterally. CARDIOVASCULAR: Regular rate and rhythm. NEUROLOGICAL EXAM: Essentially unchanged. There were no focal motor seizures noted on stimulation e lui though he has been off sedation for hours. IMAGING STUDIES: EEG was reviewed, as he has been placed on continuous EEG, which showed diffuse sup ression without any epileptiform discharges. IMPRESSION: 1. Status epilepticus. 2. Subdural hematoma, status post evacuation. Mr. Crawford is a 67-year-old male, who presented with a subdural hematoma resulting in a sim ple partialis continua involving the right face and right upper extremity. At this time, his seizure s have been well under control with Keppra, Vimpat, and Depakote. His level for Depakote was 26.6. I would recommend continuing on the current dosage. If he does have another episode, then we can inc rease the dose of the Depakote to 1500 mg b.i.d. His EEG did not show any seizure-type activity. Th us, I would recommend continuing current medical management. Thank you for the consultation.
[2017-10-11] MEDS: Sodium Chloride 0.45% 1,000 ML IV SCH (21:17)
[2017-10-11 22:35] LABS: Vancomycin, Trough 18.8 ug/mL
[2017-10-11] MEDS: Vancomycin HCl 1.25 GM in Sodium Chloride 0.9% 250 ML 250 ML IVPB SCH (22:41)
[2017-10-11] MEDS ORDERED: Sodium Chloride 0.45% 1,000 ML IV SCH (23:15)
[2017-10-12 04:36] LABS: #Eosinphils 0.1 thou/uL (0.0-0.7); #Lymphocytes 0.4 thou/uL (1.20-3.40); #Monocytes 0.5 thou/uL (0.11-0.59); #Neutrophils 4.6 thou/uL (1.40-6.50); %Eosinophils 1.2 % (0.0-10.0); %Lymphocytes 7.3 % (21.0-51.0); %Monocytes 8.2 % (0.0-10.0); %Neutrophils 83.4 % (42.0-75.0); Hemoglobin 8.7 g/dL (14.0-18.0); Mean Corpuscular Hemoglobin 33.6 pg (27.0-31.0); Mean Corpuscular Volume 99.1 fl (80.0-94.0); Mean Platelet Volume 8.4 fL (7.4-10.4); Platelet Count 106 thou/uL (130-400); RBC Distribution Width 13.5 % (11.5-14.5); Red Blood Cell (RBC) Count 2.59 mill/uL (4.70-6.10); White Blood Cell (WBC) Count 5.6 thou/uL (4.8-10.8)
[2017-10-12 04:50] LABS: Anion Gap 16 mmol/L (10-20); BUN (Urea Nitrogen) 90 mg/dL (8.4-25.7); Calc. Creatinine Clearance 0 mL/min (70-130); Calcium 8.5 mg/dL (7.8-10.44); Carbon Dioxide 15 mmol/L (23-31); Chloride 122 mmol/L (98-107); Estimated GFR-MDRD 16; Glucose 151 mg/dL (80-115); Potassium 4.4 mmol/L (3.5-5.1); Sodium 149 mmol/L (136-145)
[2017-10-12] MEDS: HumaLOG 300 UNITS/3 ML VIAL SC PRN ×3 (05:01→16:13)
--- NOTE | 2017-10-12 06:03 | CON ---
DATE OF CONSULTATION: 10/11/2017 REASON FOR CONSULTATION: Elevated creatinine and hypernatremia. HISTORY OF PRESENT ILLNESS: This is a very pleasant 67-year-old gentleman who has a history of mecha nical aortic valve, on chronic anticoagulation therapy, presented to the hospital after a fall and de veloped a subdural hematoma, the patient's creatinine was 1.35 on admission which increased to 1.6 on the 15th and 2.7 on the 17th and 2.9 yesterday and 3.4 today. The patient was never hypotensive. T he patient did not receive any nephrotoxic medication. PAST MEDICAL HISTORY: Significant for diabetes mellitus, hyperlipidemia, hypertension, peripheral va scular disease, subdural hematoma, coronary artery disease, bypass. SOCIAL ECONOMIC HISTORY: Unobtainable. REVIEW OF SYSTEMS: Unobtainable. MEDICATIONS: List reviewed. PHYSICAL EXAMINATION: GENERAL: Patient is resting. VITAL SIGNS: Afebrile, pulse 72, breathing at 16, blood pressure 125/50. LABORATORY DATA: Sodium 146, BUN 77, creatinine is 3.4. Urinalysis showed more than 300 protein as well as blood is present. Renal ultrasound showed no hydronephrosis. ASSESSMENT AND RECOMMENDATIONS: 1. Acute kidney injury with chronic kidney disease due to the presence of proteinuria indicates [facility] client services emile kidney disease at the start. Other contributed factors could be acute tubular necrosis and possi ble exacerbation of acute tubular necrosis could have been caused by a possible acute community-acqui red pneumonia. Other contributing factors could be cardiorenal syndrome in the setting of non-ST eulalio vation myocardial infarction and respiratory failure. Again, there is no indication for dialysis. 2. Hypernatremia. We will change the IV fluid to half normal saline and follow serum sodium closely . 3. Metabolic acidosis due to renal failure. 4. Proteinuria, indicates chronic kidney disease. 5. Medications based on glomerular filtration rate if appropriate. No indication for renal replacem ent therapy. Again, no urgent indication for dialysis. I will follow this patient closely. Thank you for allowing me to participate in the care of this patient.
[2017-10-12] MEDS: niCARdipine HCl 50 MG in Sodium Chloride 0.9% 250 ML 230 ML IVPB SCH ×3 (08:00→19:23)
[2017-10-12] MEDS ORDERED: Dextrose 5% in Water 1,000 ML IV SCH (08:15)
[2017-10-12] MEDS: Sodium Bicarbonate Tab 325 MG TAB PER TUBE SCH ×2 (08:50→20:58)
[2017-10-12] MEDS: Metoprolol Tartrate 50 MG TAB PO SCH ×2 (08:50→20:58)
[2017-10-12] MEDS: levETIRAcetam In NaCl (Iso-Os) 1,500 MG in Premix Bag 1 BAG IVPB SCH ×4 (08:51→20:48)
[2017-10-12] MEDS: Valproate Sodium 1,000 MG in Sodium Chloride 0.9% 100 ML IVPB SCH ×2 (08:51→20:54)
[2017-10-12] MEDS: Famotidine 20 MG TAB PER TUBE SCH (08:51)
[2017-10-12] MEDS: Insulin Detemir 100 UNITS/ML 10 UNITS in Pre-Filled Syringe 1 EACH SC SCH ×2 (08:52→20:58)
[2017-10-12] MEDS: Cefepime 1 GM, Admixture Fee 1 EACH in Sterile Water 10 ML SLOW IVP SCH ×2 (08:56→20:58)
[2017-10-12] MEDS: Docusate Sodium 100 MG/10 ML UDCUP PO SCH ×2 (08:58→20:58)
[2017-10-12] MEDS: Lacosamide 200 MG in Sodium Chloride 0.9% 50 ML IVPB SCH ×2 (09:00→20:55)
[2017-10-12] MEDS: Dextrose 5% in Water 500 ML IV SCH ×3 (09:02→18:54)
--- NOTE | 2017-10-12 09:05 | PRG ---
DATE OF SERVICE: 10/12/2017 Mr. Crawford is postoperative day 5 following acute subdural hematoma evacuation. He has a left motor strip cerebral contusion from his fall a week ago. Seizures have been the biggest issue postoperativ mack. He is now on triple antiepileptic therapy with Lacosamide, Keppra and valproic acid. He is now on continuous EEG. He has had no clinical or electrographic seizures to my knowledge over the last 24 hours. His sedation has also been weaned. His pupils are equal, round, and reactive to 3-2 mm. He has had a return in his cough. I think as his sedation continues to clear the biggest issue again will be controlling his seizures, and we will continue to follow improvement in his neurological sta te. He has had an increase in his creatinine and Nephrology has seen him. His sodium this morning i s 149 and his creatinine is up from 3.43-3.76. He had been initiated back on his nicardipine as he h ad increased blood pressure as his sedation was being weaned.
--- NOTE | 2017-10-12 09:14 | PRG ---
DATE OF SERVICE: 10/12/2017 SUBJECTIVE: Mr. Crawford currently have an EEG done. He is not responsive. PHYSICAL EXAMINATION: VITAL SIGNS: His blood pressure is 122/53, pulse 80. LUNGS: Clear anteriorly. CARDIAC: [place] prosthetic valve sounds. ASSESSMENT: 1. Status post intracranial hemorrhage. 2. Renal failure with creatinine 3.76. 3. Status post aortic valve replacement. PLAN: Prognosis is guarded to poor. EEG is pending. No further recommendations at this point.
--- NOTE | 2017-10-12 14:24 | PRG ---
DATE OF SERVICE: 10/12/2017 SUBJECTIVE: This is a 67-year-old gentleman being seen for acute kidney injury. Patient is somnolen t. PHYSICAL EXAMINATION: GENERAL: The patient is resting. VITAL SIGNS: Afebrile, pulse 65, breathing at 16, blood pressure 113/59. GENERAL APPEARANCE AND MENTAL STATUS: Fair. HEAD/NECK: Normocephalic. Atraumatic. EYES: EOMI. No deformity. EARS: Clear. No ulcers. NOSE: Intact. No lesions. MOUTH: Clear. No discharge. THROAT: Clear. No exudate. LUNGS: Clear. No crackles. CARDIAC: S1, S2. No rub. ABDOMEN: Benign. BS+. GENITALIA/RECTUM: Barber absent. BACK/EXTREMITIES: Edema 0+ Ulcer- NEUROLOGICAL: Alert and motor intact. SKIN: Rash- Bruise- LYMPHATICS: Edema- Ulcer- LABORATORY: Hemoglobin 8.7, creatinine 3.6, sodium 149. ASSESSMENT AND RECOMMENDATIONS: 1. Acute kidney injury with chronic kidney disease, multifactorial. No indication for dialysis. Co ntinue hydration. 2. Metabolic acidosis due to renal failure. We will start sodium bicarbonate 650 t.i.d. 3. Hypernatremia. Change IV fluids to D5W at 100 mL an hour. Overall, prognosis is extremely poor.
--- NOTE | 2017-10-12 14:29 | PRG ---
DATE OF SERVICE: 10/12/2016 SERVICE: Pulmonary Medicine. INTERVAL HISTORY: The patient got set up with the continuous EEG monitor. Sedation was interrupted yesterday. He remains completely obtunded today. There has been no additional seizure activity, but is likely still on the influence of multiple medications. He cannot provide any additional elements of the history. Oxygen requirements are generous. That being said, there were no overnight events. PHYSICAL EXAMINATION: VITAL SIGNS: Afebrile, pulse is 69, blood pressure 113/49, respirations 15, saturation 92% on 45% FIO2 and a PEEP of 5. HEENT: Normocephalic, atraumatic. Sclerae are white, conjunctivae pink. Oral and nasal mucosa is moist without lesions. LUNGS: Decent air entry. Dependent crackles are present. HEART: Normal rate, regular. ABDOMEN: Soft, nontender, nondistended. Bowel sounds are positive. MUSCULOSKELETAL: No cyanosis or clubbing. There is 1+ pitting in the bilateral lower extremities. LABORATORY DATA: WBC 5.6, hemoglobin 8.7, platelets 106,000. INR 1.5. Creatinine 3.76 and up trending. Sodium 149, chloride 122. Basic metabolic profile is otherwise unremarkable. BUN continues to trend upward to 90. Urinalysis is unremarkable. Vancomycin level 18.8, valproic acid level 26.2. Respiratory culture, blood culture x2, and urine culture are all unremarkable to date. ASSESSMENT: 1. Acute hypoxic respiratory failure. 2. Pulmonary infiltrate, likely associated with atelectasis, though community- acquired pneumonia cannot be excluded. 3. Subarachnoid hemorrhage with subdural hematoma. 4. Metabolic encephalopathy. 5. Status epilepticus. 6. Acute kidney injury. 7. Non-ST elevation myocardial infarction. 8. History of aortic valve replacement, requiring anticoagulation at some future time. PLAN: With the continuous EEG monitor, I feel better about withholding all sedating medications. We will provide him with a dose of Lasix today and repeat chest x-ray tomorrow morning. ABG will also be performed. Hopefully, as the patient starts to wake up and clears his sedating medications, he will be prepared for spontaneous breathing trial, although his oxygen requirements are little bit generous at this point to consider final wean. I appreciate nephrology recommendations. Critical care time: 30 minutes. [facility]
[2017-10-12 17:40] LABS: Anion Gap 14 mmol/L (10-20); BUN (Urea Nitrogen) 94 mg/dL (8.4-25.7); Calc. Creatinine Clearance 29 mL/min (70-130); Calcium 8.4 mg/dL (7.8-10.44); Carbon Dioxide 15 mmol/L (23-31); Chloride 122 mmol/L (98-107); Estimated GFR-MDRD 16; Glucose 196 mg/dL (80-115); Potassium 4.1 mmol/L (3.5-5.1); Sodium 147 mmol/L (136-145)
--- NOTE | 2017-10-12 20:12 | PRG ---
DATE OF SERVICE: 10/12/2017 SUBJECTIVE: Mr. Crawford is a 67-year-old male with a subdural hematoma, status post evacuat ion, had developed continuous right focal motor seizure. He is now off sedation for more than 24 selene rs. According to nurse, there has not been any seizure-type activity noted. He continues to be nonr esponsive to any verbal or noxious stimuli. PHYSICAL EXAMINATION: VITAL SIGNS: Blood pressure of 120/54, pulse of 74, temperature of 98.9, respirations of 22 on mecha nical ventilation. GENERAL: Intubated, nonsedated male. RESPIRATORY: Clear to auscultation bilaterally. CARDIOVASCULAR: Regular rate and rhythm. NEUROLOGICAL: Mental status: The patient is intubated and nonsedated. He does not respond to any v erbal or noxious stimuli. Cranial nerves: Pupils are 3 mm and reactive. He does breathe over the v entilator machine. He does have positive cough and gag reflex. Motor exam showed flaccid bilateral upper and lower extremities. There is no response to nail blood pressure or sternal rub in both uppe r and lower extremities. LABORATORY DATA: Reviewed, which included CBC, BMP, which is significant for hemoglobin of 8.7, tuan tocrit of 25.7, platelet count of 106. Sodium of 147, BUN of 94, creatinine of 3.8, glucose of 196. IMPRESSION: 1. Subdural hematoma, status post evacuation. 2. Status epilepticus, improving. PLAN: Mr. Crawford is a 67-year-old male who presented with the subdural hematoma, status po st evacuation. He had developed right focal motor seizures. He has not had any seizures over the pa st 24 hours. He has EEG that was reviewed from yesterday showed burst suppression without any epilep tiform discharges. I was not able to pull the EEG from today due to technical difficulties. At this time, I will recommend continuing him on Keppra, Vimpat, and Depakote at the same dose. I will rech rhona the Depakote level in the morning. I have discussed the findings with the patient's over phone and explained the plan is to continue with the same medications.
[2017-10-12] MEDS ORDERED: Vancomycin HCl 1 GM in Premix Bag 1 BAG IVPB SCH (23:00)
[2017-10-13] MEDS: niCARdipine HCl 50 MG in Sodium Chloride 0.9% 250 ML 230 ML IVPB SCH ×6 (00:11→23:15)
[2017-10-13] MEDS: Dextrose 5% in Water 500 ML IV SCH ×2 (00:33→09:18)
[2017-10-13 04:25] LABS: #Eosinphils 0.1 thou/uL (0.0-0.7); #Lymphocytes 0.4 thou/uL (1.20-3.40); #Monocytes 0.5 thou/uL (0.11-0.59); #Neutrophils 5.5 thou/uL (1.40-6.50); %Basophils 0.2 % (0.0-1.0); %Eosinophils 1.7 % (0.0-10.0); %Lymphocytes 6.1 % (21.0-51.0); %Monocytes 8.3 % (0.0-10.0); %Neutrophils 83.8 % (42.0-75.0); Hemoglobin 9.5 g/dL (14.0-18.0); Mean Corpuscular HGB CONC 33.9 g/dL (32.0-36.0); Mean Corpuscular Hemoglobin 33.3 pg (27.0-31.0); Mean Corpuscular Volume 98.1 fl (80.0-94.0); Mean Platelet Volume 8.1 fL (7.4-10.4); Platelet Count 127 thou/uL (130-400); RBC Distribution Width 13.6 % (11.5-14.5); Red Blood Cell (RBC) Count 2.85 mill/uL (4.70-6.10); White Blood Cell (WBC) Count 6.5 thou/uL (4.8-10.8)
[2017-10-13 04:40] LABS: Anion Gap 14 mmol/L (10-20); BUN (Urea Nitrogen) 97 mg/dL (8.4-25.7); Calc. Creatinine Clearance 28 mL/min (70-130); Calcium 8.6 mg/dL (7.8-10.44); Carbon Dioxide 14 mmol/L (23-31); Chloride 119 mmol/L (98-107); Estimated GFR-MDRD 15; Glucose 273 mg/dL (80-115); Potassium 4.2 mmol/L (3.5-5.1); Sodium 143 mmol/L (136-145)
[2017-10-13] MEDS: Docusate Sodium 100 MG/10 ML UDCUP PO SCH (07:57)
[2017-10-13] MEDS: levETIRAcetam In NaCl (Iso-Os) 1,500 MG in Premix Bag 1 BAG IVPB SCH ×4 (07:57→20:02)
[2017-10-13] MEDS: Sodium Bicarbonate Tab 325 MG TAB PER TUBE SCH ×4 (07:57→20:01)
[2017-10-13] MEDS: Furosemide 40 MG/4 ML VIAL SLOW IVP SCH (07:57)
[2017-10-13] MEDS: Metoprolol Tartrate 50 MG TAB PO SCH (07:58)
[2017-10-13] MEDS: Famotidine 20 MG TAB PER TUBE SCH (07:58)
[2017-10-13] MEDS: Cefepime 1 GM, Admixture Fee 1 EACH in Sterile Water 10 ML SLOW IVP SCH (09:26)
[2017-10-13] MEDS: Valproate Sodium 1,000 MG in Sodium Chloride 0.9% 100 ML IVPB SCH ×2 (09:26→21:27)
[2017-10-13] MEDS: Insulin Detemir 100 UNITS/ML 10 UNITS in Pre-Filled Syringe 1 EACH SC SCH ×2 (09:26→21:00)
[2017-10-13] MEDS: Lacosamide 200 MG in Sodium Chloride 0.9% 50 ML IVPB SCH ×2 (10:41→20:53)
[2017-10-13] MEDS: HumaLOG 300 UNITS/3 ML VIAL SC PRN ×3 (10:52→21:00)
--- NOTE | 2017-10-13 11:13 | PRG ---
DATE OF SERVICE: 10/13/2017 SUBJECTIVE: This is a 67-year-old gentleman being seen for acute kidney injury. The patient is rest ing. PHYSICAL EXAMINATION: GENERAL: Patient is resting. VITAL SIGNS: Afebrile, pulse 62, breathing at 16, blood pressure 121/52. OBJECTIVE: See above. Awake, alert, in no acute distress. GENERAL APPEARANCE AND MENTAL STATUS: Fair. HEAD/NECK: Normocephalic. Atraumatic. EYES: EOMI. No deformity. EARS: Clear. No ulcers. NOSE: Intact. No lesions. MOUTH: Clear. No discharge. THROAT: Clear. No exudate. LUNGS: Clear. No crackles. CARDIAC: S1, S2. No rub. ABDOMEN: Benign. BS+. GENITALIA/RECTUM: Barber absent. BACK/EXTREMITIES: Edema 0+ Ulcer- NEUROLOGICAL: The patient is resting. SKIN: Rash- Bruise- LYMPHATICS: Edema- Ulcer- LABORATORY: Hemoglobin 9.5, creatinine 3.9. GFR 15, BUN 97. ASSESSMENT AND RECOMMENDATIONS: 1. Chronic kidney disease stage 4 with acute kidney injury, multifactorial. No indication for dialy sis. 2. Metabolic acidosis. We will increase the sodium bicarbonate to 4 times a day at 650 mg. 3. Hyponatremia, improved. I will continue hydration. If the renal function does not improve in th e next few days, we will consider renal replacement therapy, but there is no urgent indication for re nal replacement therapy at this time.
[2017-10-13 11:48] LABS: INR-International Normal Ratio 1.5; Prothrombin Time 18.2 SEC (12.0-14.7)
[2017-10-13 11:49] LABS: PTT 39.6 SEC (22.9-36.1)
--- NOTE | 2017-10-13 11:56 | PRG ---
DATE OF SERVICE: 10/13/2017 Mr. Crawford is postoperative 6 from left-sided craniotomy for acute subdural hematoma evacuation after a fall in which he suffered a left-sided motor strip cerebral contusion in the acute subdural hemato ma. This fall was on Coumadin and aspirin as he has a history of mechanical heart valve and multives [place] cardiac stenting. Postoperatively his course has been complicated by seizures requiring 3 antiep ileptics of which Neurology, Dr. Trujillo, is following. He just got off continuous EEG and had been on significant prolonged sedation to control his seizures. He has not had any further seizures at this time, although his exam remains poor. His pupils are equal, round, and reactive to light, 3-2 mm and he has a weak cough. He is breathing over the ventilator. He has no motor responses in his extremi ties; however. Multiple CTs in the postoperative period have demonstrated no worrisome surgical issu es, I think he simply needs time at this point to recover from his head injury and seizures and allow the sedation to essentially come off. From a metabolic standpoint, our medical team is following sarah bauer as Nephrology as he has had renal insufficiency. He did have a [id number] elevation myocardia l infarction around the time of his fall so this has complicated matters. He is on nicardipine to co ntrol hypertension as well. His labs demonstrate a hemoglobin of 9.5, which is improved, platelet count 127, which is also improv ed. His INR was 1.5 on the 17th. This was up from 1.2 after reversal and we will reassess this to rani ospina sure it is not climbing. His sodium is normal at 143. He does have hyperglycemia at 268. His c reatinine is 3.93 up from 3.80. I have updated his family that it will simply take time. I think an ultrasound at some point in the near future we would be of benefit as well. We already have one radha t demonstrates no evidence of DVT. His prognosis remains guarded.
[2017-10-13] MEDS: Metoprolol Tartrate 5 MG/5 ML VIAL IVP PRN (15:46)
[2017-10-13] MEDS ORDERED: Carvedilol 25 MG TAB PO SCH ×2 (19:00→20:00)
--- NOTE | 2017-10-13 19:33 | PRG ---
DATE OF SERVICE: 10/13/2017 SERVICE: Pulmonary Medicine. INTERVAL HISTORY: The patient is doing okay from a cardiovascular standpoint. His oxygen requiremen t is continuing to increase a little bit. He remains volume up every single day. Otherwise, there h as been no interval change to his condition neurologic or otherwise. He remains on a sedation holida y and other than breathing over the ventilator, is not doing much for us presently. PHYSICAL EXAMINATION: VITAL SIGNS: Afebrile, pulse 68, blood pressure 122/48, respirations 25, saturation 99% on 10 of PEE P and FiO2 of 40%. HEENT: Normocephalic. Postoperative changes are present. LUNGS: Excellent air entry. There is no prolonged expiratory phase. Dependent crackles are present . HEART: Normal rate, regular. ABDOMEN: Soft, nontender, nondistended. Bowel sounds are positive. MUSCULOSKELETAL: No cyanosis or clubbing. There is diffuse 1+ pitting throughout which is more pron ounced at the sacral region. GENITOURINARY: Barber catheter in place. LABORATORY: WBC 6.5, hemoglobin 9.5, platelets 127,000 and improving. Neutrophil count is 84%. INR 1.5. Creatinine 3.93, BUN 97. Basic metabolic profile is otherwise unremarkable with the bicarbona te is roughly stable at 14. Sodium has improved to 143. Respiratory cultures negative. Urine cultu res negative, blood culture x2 was unremarkable. ASSESSMENT: 1. Acute hypoxic respiratory failure. 2. Pulmonary infiltrate, likely atelectasis, though community-acquired pneumonia cannot be entirely excluded. 3. Subarachnoid hemorrhage with subdural hematoma. 4. Status epilepticus associated with #3. 5. Acute kidney injury. 6. Non-ST elevation myocardial infarction. 7. History of aortic valve replacement, requiring anticoagulation at some future time. PLAN: All sedation is being held until the patient's mentation wakes up and allow for spontaneous br eathing trial and possible extubation. I will try to minimize any fluid moving forward as the patien t is significantly volume overloaded. We will continue our daily dose of Lasix and hopefully his uri ne output will start to hop picker. Otherwise, supportive care with ventilator will be continued. [facility] will continue to follow while he remains in the ICU. Critical care time: 30 minutes.
--- NOTE | 2017-10-13 19:40 | PRG ---
DATE OF SERVICE: 10/13/2017 SUBJECTIVE: Ms. Crawford intubated and ventilated, not feeding currently, but is on multiple seizure m edicines. PHYSICAL EXAMINATION: VITAL SIGNS: Blood pressure is elevated at 150/60 despite Cardene. LUNGS: Clear. CARDIAC: Normal S1 and S2 with crisp prosthetic valve sounds. ABDOMEN: Soft, nontender. EXTREMITIES: There is moderate edema. ASSESSMENT: 1. Intracranial hemorrhage. 2. Hypertension. 3. Renal failure. PLAN: 1. We will change from metoprolol to carvedilol. 2. One dose of diuretic in the morning. 3. Continue nicardipine for now.
[2017-10-14] MEDS: niCARdipine HCl 50 MG in Sodium Chloride 0.9% 250 ML 230 ML IVPB SCH ×2 (03:52→08:53)
[2017-10-14 04:54] LABS: Anion Gap 15 mmol/L (10-20); BUN (Urea Nitrogen) 105 mg/dL (8.4-25.7); Calc. Creatinine Clearance 30 mL/min (70-130); Calcium 8.8 mg/dL (7.8-10.44); Carbon Dioxide 15 mmol/L (23-31); Chloride 119 mmol/L (98-107); Estimated GFR-MDRD 15; Glucose 239 mg/dL (80-115); Potassium 4.1 mmol/L (3.5-5.1); Sodium 145 mmol/L (136-145)
[2017-10-14] MEDS: HumaLOG 300 UNITS/3 ML VIAL SC PRN ×4 (05:47→21:11)
[2017-10-14] MEDS: Furosemide 40 MG/4 ML VIAL SLOW IVP SCH (05:54)
[2017-10-14] MEDS ORDERED: Furosemide 40 MG/4 ML VIAL SLOW IVP SCH (06:00)
[2017-10-14 06:42] LABS: Actual Bicarbonate (HCO3a) 13.8 mEq/L (22-26); Base Excess (BEa) -10.5 mEq/L (0 (+/-) 2.5); CO2 Tension 25.9 mmHg (35.0-45.0); Calcium, Ionized 1.2 mmol/L (1.12-1.30); Hematocrit-ABG 26.3 % (42.0-52.0); Hemoglobin (Hb) 9.8 g/dL (14.0-18.0); pH, Arterial 7.35 (7.35-7.45)
[2017-10-14 06:45] LABS: ALV-art Gradient 202.775 (0-20); Puncture Site ALINE
--- NOTE | 2017-10-14 08:40 | RAD ---
AP VIEW CHEST: 10/14/2017 HISTORY: Status post intubation. COMPARISON: 10/10/2017 FINDINGS: AP view chest demonstrates a left jugular Mediport catheter in place. There is a left subclavian nica tral line in place. Sternotomy wires are seen. The patient is intubated. There is a prosthetic car diac valve in place. The Mediport catheter crosses the midline and extends with the distal tip in th e right subclavian vein. Areas of patchy density are seen in both lung bases. Small bilateral pleural effusions are seen. Th e radiographic appearance of the chest is stable and unchanged. IMPRESSION: Bilateral pleural effusions and bibasilar areas of patchy density, compatible with areas of atelectas is or pneumonia. Lines and tubes unchanged. A nasogastric tube is also in place. POS: [facility]
[2017-10-14] MEDS: Famotidine 20 MG TAB PER TUBE SCH (08:48)
[2017-10-14] MEDS: Carvedilol 25 MG TAB PO SCH ×2 (08:48→17:15)
[2017-10-14] MEDS: Sodium Bicarbonate Tab 325 MG TAB PER TUBE SCH ×4 (08:48→20:06)
[2017-10-14] MEDS: Insulin Detemir 100 UNITS/ML 10 UNITS in Pre-Filled Syringe 1 EACH SC SCH ×2 (08:49→21:10)
[2017-10-14] MEDS: levETIRAcetam In NaCl (Iso-Os) 1,500 MG in Premix Bag 1 BAG IVPB SCH ×4 (08:49→20:05)
[2017-10-14] MEDS: Valproate Sodium 1,000 MG in Sodium Chloride 0.9% 100 ML IVPB SCH ×2 (08:49→20:06)
[2017-10-14] MEDS ORDERED: Cefepime 1 GM, Admixture Fee 1 EACH in Sterile Water 10 ML SLOW IVP SCH (09:00)
[2017-10-14] MEDS: Lacosamide 200 MG in Sodium Chloride 0.9% 50 ML IVPB SCH ×2 (10:06→21:35)
--- NOTE | 2017-10-14 10:21 | PRG ---
DATE OF SERVICE: 10/14/2017 SUBJECTIVE: This is a 67-year-old gentleman being seen for acute kidney injury. The patient is somn olent and resting. PHYSICAL EXAMINATION: GENERAL: Patient is resting. VITAL SIGNS: Afebrile, pulse 80, breathing at 16, blood pressure 119/44. HEAD/NECK: Normocephalic. Atraumatic. EYES: EOMI. No deformity. EARS: Clear. No ulcers. NOSE: Intact. No lesions. MOUTH: Clear. No discharge. THROAT: Clear. No exudate. LUNGS: Clear. No crackles. CARDIAC: S1, S2. No rub. ABDOMEN: Benign. BS+. GENITALIA/RECTUM: Barber absent. BACK/EXTREMITIES: Edema 0+ Ulcer- NEUROLOGICAL: Resting. SKIN: Rash- Bruise- LYMPHATICS: Edema- Ulcer- LABORATORY DATA: Show hemoglobin 9.5, potassium 4.1, bicarbonate 14, and creatinine 3.97. ASSESSMENT AND RECOMMENDATIONS: 1. Acute kidney injury with chronic kidney disease, stage 4. Creatinine has plateaued. 2. Uremia, mild. 3. Metabolic acidosis. Continue sodium bicarbonate. 4. Hypernatremia, resolved. If renal function does not improve by tomorrow, we will consider renal replacement therapy.
[2017-10-14] MEDS ORDERED: Cefepime 1 GM in Sodium Chloride 0.9% 100 ML IVPB SCH (12:15)
[2017-10-14] MEDS ORDERED: Morphine 4 MG/ML VIAL SLOW IVP SCH (12:30)
[2017-10-14] MEDS: Cefepime 1 GM, Admixture Fee 1 EACH in Sterile Water 10 ML SLOW IVP SCH (12:42)
--- NOTE | 2017-10-14 14:11 | ULT ---
ULTRASOUND WITH DOPPLER DUPLEX VENOUS LOWER EXTREMITIES BILATERAL: HISTORY: 67-year-old male with immobility, at increased risk for deep venous thrombosis. TECHNIQUE: Color flow Doppler, spectral waveform analysis of pulsed Doppler, and de luna-scale imaging with lisa eva and augmentation, were used to evaluate the bilateral common femoral, femoral, popliteal, rack production worker ior tibial, and superficial femoral, veins; and the proximal portions of the profunda femoral and gre ater saphenous, veins. FINDINGS: There is normal compressibility, demonstration of blood flow by color Doppler and pulsed Doppler, and response to augmentation, in all interrogated veins. There is mild soft tissue edema bilaterally. IMPRESSION: 1. No deep vein thrombosis in the bilateral lower extremities. 2. Mild edema in the soft tissues of bilateral lower extremities. jnr POS: [facility]
[2017-10-14] MEDS: Metoprolol Tartrate 5 MG/5 ML VIAL IVP PRN (22:12)
--- NOTE | 2017-10-15 01:40 | PRG ---
DATE OF SERVICE: 10/14/2017 Mr. Crawford is clinically unchanged. PHYSICAL EXAMINATION: VITAL SIGNS: His heart rate in the 60s, respiratory rate in the 20s. Blood pressure 153/53. LUNGS: Remarkable, coarse equal breath sounds. HEART: Regular rate and rhythm. ABDOMEN: Soft. EXTREMITIES: Without asymmetry. Intake and output 3273/1893, giving a total of positive balance of 1380. It is almost 11 liters positive for the last 5 days. LABORATORY DATA: White count is 6.5, hemoglobin 9.5, platelets 127. Sodium 145, potassium 4.1, chloride 119, bicarb 1 5, BUN 105, creatinine 3.97, it was 3.93 yesterday. venography of both legs today shows no kennedy ts, so SCDs will be placed. Chest radiograph today shows pulmonary edema and pleural effusions. IMPRESSION: 1. Respiratory failure. 2. History of craniotomy. 3. Volume overload. 4. Acute on chronic kidney disease. 5. History of anticoagulation with a bleed after a fall. 6. History of hypertension. PLAN: He is currently not weanable. His radiograph and blood gas were reviewed by me as pH 7.35, CO 2 of 25, pO2 of 83. If he has positive fluid balance continues without improvement of his renal func tion, we may have to consider trying to remove volume either via Lasix or dialysis. CRITICAL CARE TIME: Thirty-five minutes.
[2017-10-15 05:36] LABS: Anion Gap 14 mmol/L (10-20); BUN (Urea Nitrogen) 111 mg/dL (8.4-25.7); Calc. Creatinine Clearance 31 mL/min (70-130); Calcium 8.9 mg/dL (7.8-10.44); Carbon Dioxide 17 mmol/L (23-31); Chloride 121 mmol/L (98-107); Estimated GFR-MDRD 16; Glucose 249 mg/dL (80-115); Potassium 3.9 mmol/L (3.5-5.1); Sodium 148 mmol/L (136-145)
[2017-10-15] MEDS: Furosemide 40 MG/4 ML VIAL SLOW IVP SCH (05:37)
[2017-10-15] MEDS: HumaLOG 300 UNITS/3 ML VIAL SC PRN ×4 (05:38→22:03)
[2017-10-15] MEDS: niCARdipine HCl 50 MG in Sodium Chloride 0.9% 250 ML 230 ML IVPB SCH (06:06)
[2017-10-15 07:09] LABS: CO2 Tension 26.9 mmHg (35.0-45.0); Calcium, Ionized 1.3 mmol/L (1.12-1.30); Hematocrit-ABG 27.6 % (42.0-52.0); Hemoglobin (Hb) 10.6 g/dL (14.0-18.0); O2 Tension (PaO2) 88.9 mmHg (80.0-100.0); pH, Arterial 7.36 (7.35-7.45)
[2017-10-15] MEDS: Carvedilol 25 MG TAB PO SCH ×2 (07:37→16:39)
[2017-10-15 08:01] LABS: Puncture Site RBA
[2017-10-15 08:02] LABS: ALV-art Gradient 199.225 (0-20)
[2017-10-15] MEDS: Famotidine 20 MG TAB PER TUBE SCH (08:02)
[2017-10-15] MEDS: levETIRAcetam In NaCl (Iso-Os) 1,500 MG in Premix Bag 1 BAG IVPB SCH ×4 (08:02→20:11)
[2017-10-15] MEDS: Sodium Bicarbonate Tab 325 MG TAB PER TUBE SCH ×4 (08:02→20:11)
[2017-10-15] MEDS: Insulin Detemir 100 UNITS/ML 10 UNITS in Pre-Filled Syringe 1 EACH SC SCH ×2 (08:43→22:02)
[2017-10-15] MEDS: Valproate Sodium 1,000 MG in Sodium Chloride 0.9% 100 ML IVPB SCH ×2 (08:54→20:11)
[2017-10-15] MEDS: Lacosamide 200 MG in Sodium Chloride 0.9% 50 ML IVPB SCH ×2 (09:51→22:34)
[2017-10-15] MEDS: niCARdipine 20MG In NaCl 20 MG/200 ML BAG IVPB SCH ×2 (10:12→16:52)
[2017-10-15] MEDS: Cefepime 1 GM, Admixture Fee 1 EACH in Sterile Water 10 ML SLOW IVP SCH (12:37)
--- NOTE | 2017-10-15 14:39 | EKG ---
Test Reason : Blood Pressure : / mmHG Vent. Rate : 112 BPM Atrial Rate : 112 BPM P-R Int : 174 ms QRS Dur : 116 ms QT Int : 342 ms P-R-T Axes : 040 -23 125 degrees QTc Int : 466 ms Sinus tachycardia Inferior infarct , age undetermined Marked ST abnormality, possible lateral subendocardial injury Abnormal ECG No changes c/w 04-SEP-2017 Confirmed by KEITH DE LA TORRE DO ([id number]), commissioning editor ARIEL BOONE ([id number]) on 10/15/2017 2:38:52 PM Referred By: DR DE LA TORRE Confirmed By:KEITH DE LA TORRE DO
--- NOTE | 2017-10-15 21:20 | PRG ---
DATE OF SERVICE: 10/15/2017 SUBJECTIVE: The patient was seen and examined in ICU, intubated. Plan discussed with beside nurse. OBJECTIVE: GENERAL: This is a well-built male seen in ICU, intubated. VITAL SIGNS: Temperature 98.8, pulse 69, respiratory 20, blood pressure 120/42. HEENT: . CARDIOVASCULAR: S1, S2 heard. NECK: Supple. RESPIRATORY: Clear to auscultation. GASTROINTESTINAL: Abdomen is soft. MUSCULOSKELETAL: 1+ edema. DERMATOLOGIC: No skin rash. NEUROLOGIC: Intubated. PSYCHIATRIC: Mood and affect normal. LABORATORY DATA: Potassium is 3.9, sodium is 148, bicarbonate is 70, BUN 111, creatinine 3.7. ASSESSMENT AND PLAN: 1. Acute kidney injury on chronic kidney disease stage IV. Creatinine is better today on Lasix. 2. Fluid overload on Lasix. 3. Uremia. 4. Acidosis. 5. Hypernatremia. 6. Anemia. No acute indication for dialysis. Continue on Lasix for now for fluid overload. Monitor urine outpu t and electrolytes. We will follow.
--- NOTE | 2017-10-15 21:34 | PRG ---
DATE OF SERVICE: 10/15/2017 Mr. Crawford is clinically unchanged. He is unresponsive. He is not sedated. OBJECTIVE: VITAL SIGNS: His heart rate is in the 60s, blood pressure 122/46, respiratory rate is per mechanical ventilation, oximetry is 100%. Intake and output is negative 352. LUNGS: Remarkable for equal breath sounds. CARDIOVASCULAR: Regular rhythm. S1 and S2 are normal. ABDOMEN: Soft. EXTREMITIES: Without asymmetry. LABORATORY DATA: There is no CBC today. Sodium 148, potassium 3.9, chloride 121, bicarbonate 17, BU N 111, creatinine 3.7, glucose 249, pH 7.36, CO2 of 26, pO2 of 88. IMPRESSION: 1. Respiratory failure. He is not weanable. If family wants to be aggressive down the road, he nee ds trach and a PEG in my opinion 2. History of craniotomy. 3. Volume overload with acute kidney injury on top of chronic renal disease. 4. History of anticoagulation. 5. History of hypertension. 6. History of mechanical aortic valve, off anticoagulation, still has a valve click, there is no cli nical indication that he is clotting off his valve. PLAN: Continue supportive care. Prognosis appears quite poor at this point in time. I would consid er tracheostomy and PEG placement. The plan is to continue to be aggressive. He is now 9 days into this hospitalization. Critical care time was 30 minutes.
[2017-10-16 05:26] LABS: Anion Gap 13 mmol/L (10-20); BUN (Urea Nitrogen) 112 mg/dL (8.4-25.7); Calc. Creatinine Clearance 35 mL/min (70-130); Calcium 8.8 mg/dL (7.8-10.44); Carbon Dioxide 19 mmol/L (23-31); Chloride 120 mmol/L (98-107); Estimated GFR-MDRD 19; Glucose 248 mg/dL (80-115); Potassium 3.6 mmol/L (3.5-5.1); Sodium 148 mmol/L (136-145)
[2017-10-16] MEDS: HumaLOG 300 UNITS/3 ML VIAL SC PRN ×4 (05:28→21:33)
[2017-10-16] MEDS: Furosemide 40 MG/4 ML VIAL SLOW IVP SCH (05:28)
[2017-10-16] MEDS: Insulin Detemir 100 UNITS/ML 10 UNITS in Pre-Filled Syringe 1 EACH SC SCH ×2 (09:01→21:32)
[2017-10-16] MEDS: Carvedilol 25 MG TAB PO SCH ×2 (09:02→16:29)
[2017-10-16] MEDS: Famotidine 20 MG TAB PER TUBE SCH (09:02)
[2017-10-16] MEDS: Sodium Bicarbonate Tab 325 MG TAB PER TUBE SCH ×4 (09:02→20:04)
[2017-10-16] MEDS: Lacosamide 200 MG in Sodium Chloride 0.9% 50 ML IVPB SCH ×2 (09:05→21:27)
[2017-10-16] MEDS: Valproate Sodium 1,000 MG in Sodium Chloride 0.9% 100 ML IVPB SCH ×2 (09:05→20:04)
[2017-10-16] MEDS: levETIRAcetam In NaCl (Iso-Os) 1,500 MG in Premix Bag 1 BAG IVPB SCH ×4 (09:55→20:03)
[2017-10-16] MEDS: niCARdipine HCl 25 MG in Sodium Chloride 0.9% 250 ML 240 ML IVPB SCH ×3 (10:37→20:02)
[2017-10-16] MEDS: Enalaprilat Dihydrate 1.25 MG/ML VIAL SLOW IVP SCH ×3 (12:33→23:55)
[2017-10-16] MEDS: Cefepime 1 GM, Admixture Fee 1 EACH in Sterile Water 10 ML SLOW IVP SCH (12:33)
--- NOTE | 2017-10-16 13:40 | CT ---
CT BRAIN: Date: 10/16/17 HISTORY: Follow-up intracranial hemorrhage. TECHNIQUE: Noncontrast enhanced CT images of brain obtained. Comparison made to previous exam from 10/11/17. FINDINGS: Noncontrast enhanced CT images of the brain demonstrate a left pterional craniotomy. Areas of subarac hnoid hemorrhage again seen in the left frontal and left parietal regions. This is unchanged since th e previous comparison CT. No significant increased hemorrhage is seen. A small area of right frontal intraparenchymal hemorrhage is again also seen. IMPRESSION: Subarachnoid hemorrhage and craniotomy changes again seen. No increased evidence of intracranial hemo rrhage or abnormality seen. Tiny stable area of intraventricular blood is also present bilaterally. POS: [facility]
--- NOTE | 2017-10-16 20:07 | PRG ---
DATE OF SERVICE: 10/16/2017 SUBJECTIVE: Patient was seen and examined in ICU, remains intubated, not responding and no family at the bedside and the plan discussed with the bedside nurse and making a lot of urine with Lasix. OBJECTIVE: GENERAL: This is a well-built male seen in ICU, intubated. VITAL SIGNS: Temperature 98.9, pulse 64, respiratory 20, blood pressure 126/52. HEENT: Intubated. CARDIOVASCULAR: S1, S2. Rate and rhythm regular. RESPIRATORY: Clear. ABDOMEN: Soft. MUSCULOSKELETAL: 1+ edema. DERMATOLOGIC: No skin rash. NEUROLOGIC: Intubated and not responding. ASSESSMENT AND PLAN: 1. Acute kidney injury on chronic kidney disease, stage 4. Renal function is actually getting homar r with diuresis, so most likely cardiorenal also a component. We will continue to monitor renal func tion, continue diuresis with close monitoring of electrolytes and renal function. He is making almos t 3-4 liters of urine everyday. We will continue close monitor. 2. Fluid overload bilaterally with good response to the Lasix and renal function is also getting bet ter. 3. Uremia, BUN is slightly up. 4. Acidosis. 5. Hypernatremia 6. Anemia. Patient with good response to diuretics for now. 7. Acute hypoxic respiratory failure. 8. Altered mentation, continue to monitor on diuretics. No acute indication for dialysis. We will follow.
--- NOTE | 2017-10-16 20:48 | PRG ---
DATE OF SERVICE: 10/16/2017 SUBJECTIVE: Mr. Crawford has not improved neurologically. OBJECTIVE: VITAL SIGNS: His blood pressure this evening was 142/57, heart rate is in the 60s, respiratory rate is in the 20s, oximetry is 99% -100% this afternoon. LUNGS: Remarkable for mild rhonchi anteriorly. HEART: Regular rhythm. No S3. ABDOMEN: Soft. EXTREMITIES: Without asymmetry. LABORATORY DATA: Sodium 148, potassium 3.6, chloride 120, bicarbonate 19, BUN 112, creatinine 3.3, g lucose 248. There was no blood gas done today. Head CT was done today showing subarachnoid blood and craniotomy changes and ventricular blood was se en. CT findings were reportedly stable. IMPRESSION: 1. 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 He is not weanable. He will need a trac h and a PEG in my opinion. The family wants to continue to be aggressive. 2. History of craniotomy. 3. Volume overload with acute kidney injury on top of chronic renal disease. 4. History of anticoagulation. 5. Hypertension. 6. History of mechanical aortic valve, off anticoagulation. We will repeat a radiograph tomorrow, c heck CBC tomorrow. Continue the mechanical ventilation. If the neurosurgeons think he has some reas onable prognosis and tracheostomy, PEG should be entertained. Critical care time was 30 minutes.
[2017-10-16] MEDS: niCARdipine HCl 50 MG in Sodium Chloride 0.9% 250 ML 230 ML IVPB SCH (23:56)
[2017-10-17 05:27] LABS: Anion Gap 14 mmol/L (10-20); BUN (Urea Nitrogen) 113 mg/dL (8.4-25.7); Calc. Creatinine Clearance 38 mL/min (70-130); Calcium 8.6 mg/dL (7.8-10.44); Carbon Dioxide 19 mmol/L (23-31); Chloride 121 mmol/L (98-107); Estimated GFR-MDRD 21; Glucose 251 mg/dL (80-115); Potassium 3.4 mmol/L (3.5-5.1); Sodium 151 mmol/L (136-145)
[2017-10-17] MEDS: Enalaprilat Dihydrate 1.25 MG/ML VIAL SLOW IVP SCH ×3 (06:08→17:01)
[2017-10-17] MEDS: HumaLOG 300 UNITS/3 ML VIAL SC PRN ×3 (06:08→14:54)
[2017-10-17] MEDS: Furosemide 40 MG/4 ML VIAL SLOW IVP SCH (06:08)
[2017-10-17 06:17] LABS: Band 5 % (5-11); Eosinophils 3 % (0-10); Hemoglobin 9.7 g/dL (14.0-18.0); Lymphocytes 4 % (21-51); MDiff Complete? YES; Mean Corpuscular HGB CONC 33.9 g/dL (32.0-36.0); Mean Corpuscular Hemoglobin 33.4 pg (27.0-31.0); Mean Corpuscular Volume 98.5 fl (80.0-94.0); Monocytes 12 % (0-10); Neutrophil 76 % (42-75); Platelet Count 142 thou/uL (130-400); RBC Distribution Width 13.3 % (11.5-14.5); Red Blood Cell (RBC) Count 2.91 mill/uL (4.70-6.10)
[2017-10-17] MEDS: niCARdipine HCl 50 MG in Sodium Chloride 0.9% 250 ML 230 ML IVPB SCH ×2 (07:10→14:51)
[2017-10-17 08:25] LABS: Actual Bicarbonate (HCO3a) 18.1 mEq/L (22-26); Base Excess (BEa) -6.8 mEq/L (0 (+/-) 2.5); CO2 Tension 33.8 mmHg (35.0-45.0); Calcium, Ionized 1.3 mmol/L (1.12-1.30); Hematocrit-ABG 24.6 % (42.0-52.0); Hemoglobin (Hb) 9.5 g/dL (14.0-18.0); O2 Tension (PaO2) 90.7 mmHg (80.0-100.0); pH, Arterial 7.35 (7.35-7.45)
[2017-10-17 08:28] LABS: Puncture Site RRA
--- NOTE | 2017-10-17 09:39 | RAD ---
AP VIEW CHEST: Date: 10/17/17 HISTORY: Ventilator dependent patient. FINDINGS: Comparison made to previous exam from 10/14/17. AP view of chest demonstrates left jugular MediPort catheter to cross the midline in the right subcla vian region. Nasogastric and endotracheal tubes are in good position. Sternotomy wires seen. There is suboptimal inspiratory effort. Small bilateral pleural effusions seen. Radiographic appearance of th e chest is stable and unchanged. IMPRESSION: Stable AP view chest. POS: [facility]
--- NOTE | 2017-10-17 10:04 | PRG ---
DATE OF SERVICE: 10/17/2017 Thirty-five minutes critical care time. The patient remains stable on mechanical ventilation. His was at the bedside while I examined h im. PHYSICAL EXAMINATION: VITAL SIGNS: Temperature is 98.7 with a T-max of 99.1, pulse 73, blood pressure 153/56. 24 hour int bhavesh 3159, output 2820. HEENT: His pupils are 2 mm and react to 1, bilateral large subconjunctival hemorrhage on the left la teral eye. Oropharynx has an endotracheal tube in place. NECK: Without JVD. LUNGS: Clear to auscultation anteriorly. CARDIOVASCULAR: S1, S2 regular. There is a 2/6 systolic click. ABDOMEN: Soft and nontender. EXTREMITIES: No clubbing, cyanosis. He has a faint skin pressure ulcer on the dorsum of his left fo ot. His chest x-ray showed proper placement of endotracheal tube. He has a MediPort on the left side. LABORATORY DATA: White blood cell count 6, hemoglobin 9.7, hematocrit 28.7, platelet count 142, pH 7 .35, pCO2 of 33, pO2 of 90 on SIMV rate 13, tidal volume 450, PEEP 7, pressure support 15, FIO2 45%. Sodium 151, potassium 3.4, chloride 121, CO2 19, BUN 113, creatinine 3.0, glucose 251. ASSESSMENT: 1. Acute respiratory failure requiring mechanical ventilation. 2. Encephalopathy/coma. 3. Acute kidney injury on top of chronic kidney disease. 4. History of anticoagulation for mechanical aortic valve - currently off anticoagulation. PLAN: Recommend proceeding with tracheostomy and PEG tube placement later this week. I will ask Dr. Nassar to help us on that. I reviewed the patient's medication list.
[2017-10-17] MEDS: Insulin Detemir 100 UNITS/ML 10 UNITS in Pre-Filled Syringe 1 EACH SC SCH ×2 (10:35→21:19)
[2017-10-17] MEDS: Lacosamide 200 MG in Sodium Chloride 0.9% 50 ML IVPB SCH ×2 (10:37→21:16)
[2017-10-17] MEDS: Carvedilol 25 MG TAB PO SCH ×2 (10:37→17:03)
[2017-10-17] MEDS: Valproate Sodium 1,000 MG in Sodium Chloride 0.9% 100 ML IVPB SCH ×2 (10:37→20:09)
[2017-10-17] MEDS: levETIRAcetam In NaCl (Iso-Os) 1,500 MG in Premix Bag 1 BAG IVPB SCH ×4 (10:37→20:09)
[2017-10-17] MEDS: Sodium Bicarbonate Tab 325 MG TAB PER TUBE SCH ×4 (10:37→20:09)
[2017-10-17] MEDS: Famotidine 20 MG TAB PER TUBE SCH (10:38)
[2017-10-17] MEDS: Cefepime 1 GM, Admixture Fee 1 EACH in Sterile Water 10 ML SLOW IVP SCH (13:08)
--- NOTE | 2017-10-17 21:17 | PRG ---
DATE OF SERVICE: 10/17/2017 SUBJECTIVE: The patient was seen and examined in ICU, remains intubated and not responding and famil y at the bedside, was updated. OBJECTIVE: GENERAL: This is a well-built male, intubated, seen in ICU. VITAL SIGNS: Temperature 99.0, pulse 62, respiratory rate 20, blood pressure 149/44. HEENT: Intubated. CARDIOVASCULAR: S1, S2 heard. RESPIRATORY: Clear. GI: Abdomen is soft. MUSCULOSKELETAL: 1+ edema. DERMATOLOGIC: No skin rash. NEUROLOGIC: Intubated. PSYCHIATRIC: Not responding. LABORATORY DATA: Potassium is 3.4, sodium is 151, BUN is 113, creatinine 3.01. ASSESSMENT AND PLAN: 1. Acute kidney injury. Renal function is actually getting better with diuresis. 2. Hypernatremia and hyperchloremia, most likely secondary to diuresis. Agree with free water suppl ementation through NG tube. 3. Uremia. 4. Anemia. 5. Acute hypoxic respiratory failure. 6. Intracranial bleed. Plan is to add free water through NG tube, continue diuretics per Pulmonology. Plans is to have trac h and PEG. We will follow.
[2017-10-18] MEDS: Enalaprilat Dihydrate 1.25 MG/ML VIAL SLOW IVP SCH ×4 (00:49→18:17)
[2017-10-18] MEDS: niCARdipine HCl 50 MG in Sodium Chloride 0.9% 250 ML 230 ML IVPB SCH ×2 (01:00→16:40)
[2017-10-18] MEDS: Furosemide 40 MG/4 ML VIAL SLOW IVP SCH (05:19)
[2017-10-18 05:21] LABS: Anion Gap 12 mmol/L (10-20); BUN (Urea Nitrogen) 116 mg/dL (8.4-25.7); Calc. Creatinine Clearance 40 mL/min (70-130); Calcium 8.6 mg/dL (7.8-10.44); Carbon Dioxide 21 mmol/L (23-31); Chloride 123 mmol/L (98-107); Estimated GFR-MDRD 23; Glucose 216 mg/dL (80-115); Potassium 3.2 mmol/L (3.5-5.1); Sodium 153 mmol/L (136-145)
[2017-10-18 05:45] LABS: Band 5 % (5-11); Eosinophils 1 % (0-10); Hemoglobin 10.2 g/dL (14.0-18.0); Lymphocytes 6 % (21-51); MDiff Complete? YES; Mean Corpuscular HGB CONC 34.5 g/dL (32.0-36.0); Mean Corpuscular Volume 98.6 fl (80.0-94.0); Mean Platelet Volume 7.8 fL (7.4-10.4); Metamyelocyte 1 % (0-0); Monocytes 7 % (0-10); Neutrophil 80 % (42-75); Platelet Count 138 thou/uL (130-400); RBC Distribution Width 13.4 % (11.5-14.5); Red Blood Cell (RBC) Count 2.99 mill/uL (4.70-6.10); White Blood Cell (WBC) Count 6.9 thou/uL (4.8-10.8)
[2017-10-18 07:21] LABS: Actual Bicarbonate (HCO3a) 18.8 mEq/L (22-26); Base Excess (BEa) -5.5 mEq/L (0 (+/-) 2.5); CO2 Tension 32.6 mmHg (35.0-45.0); Calcium, Ionized 1.3 mmol/L (1.12-1.30); Hematocrit-ABG 23.9 % (42.0-52.0); Hemoglobin (Hb) 9.6 g/dL (14.0-18.0); O2 Tension (PaO2) 66.3 mmHg (80.0-100.0); pH, Arterial 7.38 (7.35-7.45)
[2017-10-18 07:22] LABS: Puncture Site RRA
--- NOTE | 2017-10-18 07:50 | PDOC.PULCC ---
CCU Progress Note: Subj/Obj - Subjective Date: 10/18/17 Time: 07:48 Subjective: Comatose. Can't respond to commands or stimulation - Objective Allergies/Adverse Reactions: Allergies Allergy/AdvReac Type Severity Reaction Status Date / Time No Known Allergies Allergy Verified 10/06/17 13:51 Medications: Current Medications Acetaminophen (Tylenol) 650 mg PO Q4H PRN PRN Reason: Headache/Fever or Pain Last Admin: 10/10/17 21:42 Dose: 650 mg Albuterol/Ipratropium (Duoneb) 3 ml NEB [id number] [facility] Last Admin: 10/18/17 02:20 Dose: 3 ml Dextrose/Water (Dextrose 50%) 25 gm SLOW IVP PRN PRN PRN Reason: Hypoglycemia Enalaprilat (Vasotec) 1.25 mg SLOW IVP Q6HR [facility] Last Admin: 10/18/17 05:19 Dose: 1.25 mg Famotidine (Pepcid) 20 mg PER TUBE DAILY [facility] Last Admin: 10/17/17 10:38 Dose: 20 mg Glucagon (Glucagon) 1 mg IM PRN PRN PRN Reason: Hypoglycemia Dextrose/Water (D5w) 1,000 mls @ 0 mls/hr IV .Q0M PRN; As Directed PRN Reason: Hypoglycemia Insulin Detemir 10 units/ (Miscellaneous Medication) 0.1 mls @ 0 mls/hr SC BID [facility] Last Admin: 10/17/17 21:19 Dose: 0.1 mls Levetiracetam 1,500 mg/ Device 100 mls @ 200 mls/hr IVPB BID [facility] Last Admin: 10/17/17 20:09 Dose: 100 mls Lacosamide 200 mg/ Sodium (Chloride) 70 mls @ 110 mls/hr IVPB BID [facility] Last Admin: 10/17/17 21:16 Dose: 70 mls Valproic Acid 1,000 mg/ Sodium (Chloride) 110 mls @ 110 mls/hr IVPB BID [facility] Last Admin: 10/17/17 20:09 Dose: 110 mls Cefepime HCl 1 gm/Miscellaneous Medication 1 each/ Sterile Water 10 mls @ 120 mls/hr SLOW IVP 1300 [facility] Last Admin: 10/17/17 13:08 Dose: 10 mls Nicardipine HCl 25 mg/ Sodium (Chloride) 250 mls @ 0 mls/hr IVPB INF [facility]; Titrate PRN Reason: Protocol Last Admin: 10/16/17 20:02 Dose: 250 mls Nicardipine HCl 50 mg/ Sodium (Chloride) 250 mls @ 0 mls/hr IVPB INF [facility]; Titrate PRN Reason: Protocol Last Admin: 10/18/17 01:00 Dose: 250 mls Insulin Human Lispro (Humalog) 0 units SC .AGGRESSIVE SLIDING PRN; Protocol PRN Reason: AGGRESSIVE SLIDING SCALE Last Admin: 10/17/17 14:54 Dose: 9 unit Magnesium Hydroxide (Milk Of Magnesium) 30 ml PO DAILYPRN PRN PRN Reason: Constipation Metoprolol Tartrate (Lopressor) 5 mg IVP Q4H PRN PRN Reason: FOR INC BP CK W/ PARAMATERS Last Admin: 10/14/17 22:12 Dose: 5 mg Mineral Oil/White Petrolatum (Lacri-Lube Ointment) 0 gm EA EYE PRN PRN PRN Reason: Dry Eyes Ondansetron HCl (Zofran) 4 mg IVP Q6H PRN PRN Reason: Nausea/Vomiting Sodium Bicarbonate (Bicarbonate, Sodium) 975 mg PER TUBE QID [facility] Last Admin: 10/17/17 20:09 Dose: 975 mg Sodium Chloride (Flush - Normal Saline) 10 ml IVF Q12HR [facility] Last Admin: 10/17/17 20:09 Dose: 10 ml Sodium Chloride (Flush - Normal Saline) 10 ml IVF PRN PRN PRN Reason: Saline Flush Last Admin: 10/08/17 17:46 Dose: 10 ml MAR Reviewed: Yes Vital Signs and I&O: Vital Signs Temp 99.3 F 10/18/17 04:00 Pulse 65 10/18/17 02:22 Resp 22 H 10/18/17 06:00 BP 138/56 L 10/18/17 05:19 Pulse Ox 100 10/18/17 02:20 Intake & Output 10/17/17 10/18/17 10/18/17 18:59 06:59 18:59 Intake Total 1538 724 Output Total 1270 1320 Balance 268 -596 Weight 247 lb 4.8 oz Intake: Intake, IV Amount 797 604 Sodium Chloride 0.9% 10 408 348 ml IVF Q12HR [facility] Rx#: [id number] niCARdipine HCl 50 mg In 389 256 Sodium Chloride 0.9% 250 ML 230 ml @ Titrate IVPB INF [facility] Rx#:[id number] Oral Supplement 120 Tube Feeding 226 Tube Irrigant 395 120 Output: Output, Barber 1270 1320 Other: Voiding Method Indwelling Catheter Indwelling Catheter # Bowel Movements 1 Vent Setting: SIMV 13/450/peep7/ps10/40% Spontaneous Breathing Test: not done (Trach pending for today) CCU Progress Note: Exam - Physical Exam Deviation from normal: comatose HEENT: PERRLA, moist MMs Deviation from normal: hemorrhage left sclera Cardiovascular: RRR Respiratory: clear to auscultation bilaterally Gastrointestinal: soft, non-tender Musculoskeletal: edema present Deviation from normal: won't follow Lymphatic: no nodes Skin: no rash - Labs Result Diagrams: 10/18/17 04:30 10/18/17 04:30 Lab results: Laboratory Results - last 24 hr 10/17/17 10/17/17 10/17/17 08:05 09:22 14:54 WBC RBC Hgb Hct MCV MCH MCHC RDW Plt Count MPV Neutrophils % (Manual) Band Neuts % (Manual) Lymphocytes % (Manual) Monocytes % (Manual) Eosinophils % (Manual) Metamyelocytes % (Man) Specimen Type ARTERIAL Puncture Site RRA Bicarbonate Actual 18.1 L ABG pH 7.35 ABG pCO2 33.8 L ABG pO2 90.7 ABG O2 Sat Calc/Paresh 97.2 ABG O2 Content 12.9 L ABG Base Excess -6.8 L ABG Hematocrit 24.6 L ABG Hemoglobin 9.5 L ABG Oxyhemoglobin 95.5 ABG Carboxyhemoglobin 1.1 ABG Methemoglobin 0.6 ABG Deoxyhemoglobin 2.7 Juan Antonio Test NOT DONE A-a O2 Gradient 191.050 H Sodium 153 H Potassium 3.3 L Chloride 117 H Ionized Calcium 1.3 Mode of Support SIMV/PSV Mechanical Rate 13 Inspired O2 45 Tidal Volume 450 Pressure Support 15 PEEP or CPAP 7.0 Carbon Dioxide Anion Gap BUN Creatinine Estimated GFR (MDRD) Glucose POC Glucose 237 H 262 H Calcium 10/17/17 10/18/17 10/18/17 21:19 04:30 04:30 WBC 6.9 RBC 2.99 L Hgb 10.2 L Hct 29.5 L MCV 98.6 H MCH 34.0 H MCHC 34.5 RDW 13.4 Plt Count 138 MPV 7.8 Neutrophils % (Manual) 80 H Band Neuts % (Manual) 5 Lymphocytes % (Manual) 6 L Monocytes % (Manual) 7 Eosinophils % (Manual) 1 Metamyelocytes % (Man) 1 H Specimen Type Puncture Site Bicarbonate Actual ABG pH ABG pCO2 ABG pO2 ABG O2 Sat Calc/Paresh ABG O2 Content ABG Base Excess ABG Hematocrit ABG Hemoglobin ABG Oxyhemoglobin ABG Carboxyhemoglobin ABG Methemoglobin ABG Deoxyhemoglobin Juan Antonio Test A-a O2 Gradient Sodium 153 H Potassium 3.2 L Chloride 123 H Ionized Calcium Mode of Support Mechanical Rate Inspired O2 Tidal Volume Pressure Support PEEP or CPAP Carbon Dioxide 21 L Anion Gap 12 BUN 116 H Creatinine 2.83 H Estimated GFR (MDRD) 23 Glucose 216 H POC Glucose 226 H Calcium 8.6 10/18/17 10/18/17 04:35 07:05 WBC RBC Hgb Hct MCV MCH MCHC RDW Plt Count MPV Neutrophils % (Manual) Band Neuts % (Manual) Lymphocytes % (Manual) Monocytes % (Manual) Eosinophils % (Manual) Metamyelocytes % (Man) Specimen Type ARTERIAL Puncture Site RRA Bicarbonate Actual 18.8 L ABG pH 7.38 ABG pCO2 32.6 L ABG pO2 66.3 L ABG O2 Sat Calc/Paresh 92.7 L ABG O2 Content 12.4 L ABG Base Excess -5.5 L ABG Hematocrit 23.9 L ABG Hemoglobin 9.6 L ABG Oxyhemoglobin 91.1 L ABG Carboxyhemoglobin 1.2 ABG Methemoglobin 0.6 ABG Deoxyhemoglobin 7.2 H Juan Antonio Test NOT DONE A-a O2 Gradient 214.250 H Sodium 155 H Potassium 3.1 L Chloride 118 H Ionized Calcium 1.3 Mode of Support SIMV/PSV Mechanical Rate 13 Inspired O2 45 Tidal Volume 450 Pressure Support 15 PEEP or CPAP 7.0 Carbon Dioxide Anion Gap BUN Creatinine Estimated GFR (MDRD) Glucose POC Glucose 200 H Calcium CCU Progress Note: A/P - Problems (1) Acute respiratory failure with hypoxemia Current Visit: Yes Status: Acute Code(s): J96.01 - ACUTE RESPIRATORY FAILURE WITH HYPOXIA (2) Hypernatremia Current Visit: Yes Status: Acute Code(s): E87.0 - HYPEROSMOLALITY AND HYPERNATREMIA (3) Acute renal insufficiency Current Visit: Yes Status: Acute Code(s): N28.9 - DISORDER OF KIDNEY AND URETER, UNSPECIFIED (4) Encephalopathy acute Current Visit: Yes Status: Acute Code(s): G93.40 - ENCEPHALOPATHY, UNSPECIFIED - Time Spent with Patient Time: 35 min cc time - Plan Plan: Consulted Dr. Nassar for Trach and PEG today as it is anticipated that patient will need supportive care for quite some time Add free water in the form of D5W Not weanable yet LTAC?
[2017-10-18] MEDS ORDERED: Dextrose 5% in Water 1,000 ML IV SCH (08:00)
[2017-10-18] MEDS: Carvedilol 25 MG TAB PO SCH ×2 (08:18→18:17)
[2017-10-18] MEDS: Famotidine 20 MG TAB PER TUBE SCH (08:18)
[2017-10-18] MEDS: levETIRAcetam In NaCl (Iso-Os) 1,500 MG in Premix Bag 1 BAG IVPB SCH ×4 (08:19→20:04)
[2017-10-18] MEDS: Sodium Bicarbonate Tab 325 MG TAB PER TUBE SCH (08:20)
[2017-10-18] MEDS: Insulin Detemir 100 UNITS/ML 10 UNITS in Pre-Filled Syringe 1 EACH SC SCH ×2 (08:21→21:30)
--- NOTE | 2017-10-18 08:27 | RAD ---
SINGLE VIEW OF THE CHEST: Comparison: 10-17-17 History: Ventilated patient with respiratory failure. FINDINGS: Single view of the chest shows an enlarged but stable cardiomediastinal. Patient is status post CABG. Endotracheal tube is unchanged in position. There is a Mediport and left subclavian central venous c atheter, unchanged in position. Small bilateral pleural effusions are unchanged. IMPRESSION: Stable exam. POS: [facility]
[2017-10-18] MEDS: Lacosamide 200 MG in Sodium Chloride 0.9% 50 ML IVPB SCH ×2 (08:54→21:28)
[2017-10-18] MEDS: Valproate Sodium 1,000 MG in Sodium Chloride 0.9% 100 ML IVPB SCH ×2 (09:31→20:05)
[2017-10-18] MEDS ORDERED: WATER IV SCH (10:00)
[2017-10-18] MEDS ORDERED: STERILE WATER IV SCH (10:00)
[2017-10-18] MEDS ORDERED: DEXTROSE 10% IV SCH (10:00)
[2017-10-18] MEDS: ADMIXTURE FEE FS SCH (11:04)
[2017-10-18] MEDS: STERILE WATER FS SCH (11:04)
[2017-10-18] MEDS: WATER FS SCH (11:04)
[2017-10-18] MEDS: DEXTROSE FS SCH (11:04)
[2017-10-18] MEDS: HumaLOG 300 UNITS/3 ML VIAL SC PRN ×2 (12:23→21:30)
[2017-10-18] MEDS: Cefepime 1 GM, Admixture Fee 1 EACH in Sterile Water 10 ML SLOW IVP SCH (12:57)
--- NOTE | 2017-10-18 16:54 | PRG ---
DATE OF SERVICE: 10/18/2017 SUBJECTIVE: The patient was seen and examined in ICU, remains intubated, at the bedside. Patie nt is not responding, going to trach and PEG today. PHYSICAL EXAMINATION: GENERAL: This is a well-built male who is seen in ICU, intubated. VITAL SIGNS: Temperature 98.7, pulse 64, respiratory 18, blood pressure 113/60. HEENT: Intubated and resee present in the cranium. CARDIOVASCULAR: S1, S2 heard. RESPIRATORY: Clear. ABDOMEN: Soft. MUSCULOSKELETAL: 1+ edema. DERMATOLOGIC: No skin rash. NEUROLOGIC: Intubated. He is not responding. LABORATORY DATA: Sodium 153, potassium 3.2, chloride 123, bicarbonate 21, BUN 116, creatinine is 2.8 3. ASSESSMENT AND PLAN: 1. Acute kidney injury. Renal function actually getting better with diuresis. Creatinine is better . BUN is rising. Agree with holding the Lasix. 2. Hypernatremia. Free water supplementation. I agree with D5 W and increase free water flushes th rough the NG tube. 3. Hypokalemia, replaced per protocol. 4. Acidosis, better. Agree with holding the sodium bicarbonate for now. 5. Hyperglycemia. 6. Uremia. 7. Acute hypoxic respiratory failure and . Follow with Neurosurgery. Plan is to have a trach and PEG. No indication for dialysis. The patient with good urine output. A gree with free water supplementation for electrolyte abnormalities. Will follow.
[2017-10-18] MEDS ORDERED: Midazolam HCl 2 mg/2 ml Vial ONE (16:59)
[2017-10-18] MEDS ORDERED: Sterile Water 10 ML ONE (17:00)
[2017-10-18] MEDS ORDERED: Fentanyl 100 MCG/2 ML VIAL ONE ×2 (17:00→17:57)
[2017-10-18] MEDS ORDERED: Vecuronium 10 MG VIAL ONE (17:00)
[2017-10-18] MEDS ORDERED: Lidocaine 1% w/Epinephrine 1:200K 30 ML VIAL ONE (17:59)
[2017-10-19] MEDS: ADMIXTURE FEE FS SCH ×2 (01:34→13:08)
[2017-10-19] MEDS: STERILE WATER FS SCH ×2 (01:34→13:08)
[2017-10-19] MEDS: DEXTROSE FS SCH ×2 (01:34→13:08)
[2017-10-19] MEDS: WATER FS SCH ×2 (01:34→13:08)
[2017-10-19] MEDS: Enalaprilat Dihydrate 1.25 MG/ML VIAL SLOW IVP SCH ×4 (01:34→18:22)
[2017-10-19 04:55] LABS: Anion Gap 12 mmol/L (10-20); BUN (Urea Nitrogen) 114 mg/dL (8.4-25.7); Calc. Creatinine Clearance 46 mL/min (70-130); Calcium 8.6 mg/dL (7.8-10.44); Carbon Dioxide 22 mmol/L (23-31); Chloride 121 mmol/L (98-107); Estimated GFR-MDRD 26; Glucose 230 mg/dL (80-115); Potassium 3.4 mmol/L (3.5-5.1); Sodium 152 mmol/L (136-145)
[2017-10-19] MEDS: HumaLOG 300 UNITS/3 ML VIAL SC PRN ×4 (05:43→21:44)
[2017-10-19 05:54] LABS: Anisocytosis SLIGHT = 6-15 cells (100X) (0-5/hpf); Band 3 % (5-11); Hemoglobin 9.8 g/dL (14.0-18.0); Lymphocytes 5 % (21-51); MDiff Complete? YES; Mean Corpuscular HGB CONC 33.3 g/dL (32.0-36.0); Mean Corpuscular Hemoglobin 32.6 pg (27.0-31.0); Mean Platelet Volume 7.4 fL (7.4-10.4); Monocytes 8 % (0-10); Neutrophil 83 % (42-75); PLT Morphology Comment Appears Decreased; Platelet Count 120 thou/uL (130-400); RBC Distribution Width 13.3 % (11.5-14.5); White Blood Cell (WBC) Count 7.8 thou/uL (4.8-10.8)
[2017-10-19 07:00] LABS: Actual Bicarbonate (HCO3a) 19.5 mEq/L (22-26); Base Excess (BEa) -5.3 mEq/L (0 (+/-) 2.5); CO2 Tension 35.3 mmHg (35.0-45.0); Calcium, Ionized 1.3 mmol/L (1.12-1.30); Hematocrit-ABG 21.9 % (42.0-52.0); Hemoglobin (Hb) 8.8 g/dL (14.0-18.0); O2 Tension (PaO2) 97.7 mmHg (80.0-100.0); pH, Arterial 7.36 (7.35-7.45)
[2017-10-19 07:10] LABS: ALV-art Gradient 109.825 (0-20); Puncture Site RRA
--- NOTE | 2017-10-19 08:28 | RAD ---
PORTABLE CHEST ONE VIEW: Date: 10-19-17 Time: 5:39 a.m. History: Respiratory failure. FINDINGS/IMPRESSION: Comparison is made with the exam of the previous day. There has been interval removal of the endotracheal tube. A tracheostomy tube has been placed in the interim. Remainder of the exam is otherwise stable. POS: [id number]
[2017-10-19] MEDS: levETIRAcetam In NaCl (Iso-Os) 1,500 MG in Premix Bag 1 BAG IVPB SCH ×4 (08:49→21:36)
[2017-10-19] MEDS: Valproate Sodium 1,000 MG in Sodium Chloride 0.9% 100 ML IVPB SCH ×2 (08:50→21:37)
[2017-10-19] MEDS: Famotidine 20 MG TAB PER TUBE SCH (08:52)
[2017-10-19] MEDS: Carvedilol 25 MG TAB PO SCH ×2 (08:52→17:55)
[2017-10-19] MEDS: Insulin Detemir 100 UNITS/ML 10 UNITS in Pre-Filled Syringe 1 EACH SC SCH ×2 (08:53→21:36)
--- NOTE | 2017-10-19 08:56 | PRG ---
DATE OF SERVICE: 10/19/2017 Thirty-five minutes critical care time. The patient remains on mechanical ventilation. He underwent tracheostomy and PEG tube placement by Meir Nassar yesterday and did well. PHYSICAL EXAMINATION: VITAL SIGNS: On exam, his temperature is 97.8, pulse 61, blood pressure 144/60, 24 intake 2287, outp ut 3180. HEENT: Pupils react sluggishly. Sclerae are anicteric. Oropharynx clear. NECK: Trach in good position. LUNGS: Clear anteriorly. CARDIOVASCULAR: S1 and S2 regular, no murmur. ABDOMEN: Soft, nontender. PEG tube noted. EXTREMITIES: No clubbing, cyanosis, or edema. NEUROLOGIC: He is comatose and will not respond to deep painful stimulation. LABORATORY DATA: ABG - pH 7.36, pCO2 35, pO2 of 97 on SIMV rate 13, tidal volume 450, PEEP 7, pressu re support 15, FiO2 35%. White blood cell count 7.8, hematocrit 29.4, platelet count 120. Sodium 15 2, potassium 3.4, chloride 121, CO2 20, BUN 14, creatinine 2.4, glucose 230. ASSESSMENT: 1. Encephalopathy/comatose state. 2. Acute respiratory failure requiring mechanical ventilation and tracheostomy placement. 3. Hypernatremia, which is likely secondary to previous diuretics. 4. Acute renal insufficiency. PLAN: 1. I will go ahead and add free water to his tube feeds. 2. Begin weaning. 3. LTAC consult. 4. Considers stopping antibiotics in the next day or two.
[2017-10-19] MEDS: Lacosamide 200 MG in Sodium Chloride 0.9% 50 ML IVPB SCH ×2 (09:13→21:36)
--- NOTE | 2017-10-19 11:20 | OP ---
DATE OF PROCEDURE: 10/18/2017 PREOPERATIVE DIAGNOSES: 1. Acute intracranial hemorrhage. 2. Acute respiratory failure. 3. Coma state. POSTOPERATIVE DIAGNOSES: 1. Acute intracranial hemorrhage. 2. Acute respiratory failure. 3. Coma state. PROCEDURES PERFORMED: 1. Percutaneous tracheostomy tube placement. 2. Percutaneous endoscopic gastrostomy tube placement. SURGEON: Jos Nassar D.O. ANESTHESIA: Deep sedation and local. INDICATIONS FOR PROCEDURE: A 67-year-old man admitted following a fall with massive intracranial hem orrhage. The patient is status post craniectomy with evacuation of the stated hematoma. He remains on full mechanical ventilatory support with persistent comatose state. I was asked to place a percut aneous tracheostomy tube for potential prolonged mechanical ventilator support and to facilitate vent ilatory wean. Percutaneous endoscopic gastrostomy tube placement was also warranted for potential pr olonged enteral nutritional support. DESCRIPTION OF PROCEDURE: Informed consent obtained from the patient's . The patient is placed in supine position. He was on full mechanical ventilator support, FiO2 set at 100%. The patient rec eived aliquots of medazepam and fentanyl to comfort. He was then given 10 mg of vecuronium intraveno usly. At this juncture, patient was placed with cervical spine in neutral position. The anterior ne ck was sterilely prepped and draped in the usual fashion. The skin 2 fingerbreadths above the supras ternal notch were anesthetized with 1% lidocaine. A 1 cm vertical incision is made here using a 15 s calpel. The anterior trachea wall was cannulated with an 18 gauge introducer needle. Through this, a guidewire was advanced into the distal tracheal lumen under bronchoscopy through the previous endot hermelindo tube. Needle was withdrawn over the guidewire. The anterior tracheal wall was serially dila ricco over the guidewire. Finally, a size 8 tracheostomy tube with a dilator was passed over the guide wire and placed in the distal tracheal lumen. The dilator and guidewire were removed as a unit leavi ng the tracheostomy tube in place. Inner cannula was inserted. The patient was then connected to [facility] ventilatory support via the newly placed tracheostomy tube with good tidal volumes returning . The bronchoscope and the previous endotracheal tube were withdrawn as a unit visualizing the trach eostomy site from above. No active bleeding is noted here. Once the endotracheal tube was removed, the bronchoscope was introduced through the newly placed tracheostomy tube and advanced to visualize the ny. There is no active bleeding noted and intact tracheobronchial mucosa is visualized with withdrawing of the bronchoscope. The tracheostomy tube is secured to the anterior neck using old araseli k suture at 2 points. Trach dressings and tie were applied. The patient tolerated the procedure wit hout any apparent complication and remains hemodynamically stable following completion of the procedu re. My attention was then directed to the abdomen which was widely prepped and draped in the usual f ashion for placement of percutaneous endoscopic gastrostomy tube placement. With fresh gown and glov es, we then proceeded with this aspect of the operation. Bite block was put in place and an endoscope was introduced per oral advanced to intubate the esophag us with gentle insufflation. The endoscope was introduced into the gastric lumen, which was insuffla ricco. The scope was advanced to visualize the proximal duodenum. No ulcers noted. The scope was the n withdrawn again into the stomach and the anterior abdominal wall was transilluminated and left uppe r quadrant area chosen for the placement of the gastrostomy tube. The skin is anesthetized with 1% l idocaine here and a stab incision is made using an 11 scalpel. Introducer needle was introduced into the gastric lumen through this incision visualized by endoscopy. Guidewire was passed through this needle and advanced into the gastric lumen. This was then captured with an Endo snare passed through the endoscope. The guidewire was pulled out by mouth with the endoscope connected to a 20-[place] gastrostomy tube. The distal end of the guidewire was then pulled out through the skin incision leaving the mushroom en d of the gastrostomy tube abated, then the gastric wall has visualized in the gastric lumen by endosc opy. No active bleeding noted. The gastrostomy tube was secured to the anterior abdominal wall usin g a bolster. The gastrostomy tube was fashioned to length. A cap was put in place. Sterile dressin g was applied at the site of the gastrostomy tube. The endoscope was then withdrawn after the stomac h was desufflated. An intact esophageal mucosa is visualized upon withdrawal of the endoscope. The patient tolerated this operation without any apparent complications and remains hemodynamically stabl e following completion of the procedure.
[2017-10-19] MEDS: Cefepime 1 GM, Admixture Fee 1 EACH in Sterile Water 10 ML SLOW IVP SCH (12:04)
--- NOTE | 2017-10-19 21:51 | PRG ---
DATE OF SERVICE: 10/19/2017 SUBJECTIVE: Patient was seen and examined at bedside and overnight events noted. Patient denies any shortness of breath or chest pain or palpitation. No history of nausea or vomiting or diarrhea or f ever or chills or cramps. The patient was seen and examined in ICU, remains intubated. at the bedside and the patient not responding. OBJECTIVE: GENERAL: This is a well-built white male seen in ICU and intubated. VITAL SIGNS: Temperature 97.9, pulse 65, respiratory rate 18, blood pressure 116/64. HEENT: Intubated. NECK: Supple. CARDIOVASCULAR: S1, S2 heard. RESPIRATORY: Clear. ABDOMEN: Soft. MUSCULOSKELETAL: 1+ edema. DERMATOLOGIC: No skin rash. NEUROLOGIC: Intubated. PSYCHIATRIC: Mood and affect normal. LABORATORY DATA: Sodium 142, potassium 3.4, BUN is 114, creatinine is 2.4, glucose is 230. ASSESSMENT AND PLAN: 1. Acute kidney injury. Renal function is stable with diuresis. 2. Hyponatremia. I agree with free water as tolerated. 3. Hypokalemia, replaced. 4. Acidosis. 5. Hyperchloremia. 6. Acute hypoxic respiratory failure. 7. Altered mentation. Plan is to monitor renal function closely. No acute indication for dialysis.
[2017-10-20] MEDS: Enalaprilat Dihydrate 1.25 MG/ML VIAL SLOW IVP SCH ×4 (00:43→18:39)
[2017-10-20] MEDS ORDERED: Dextrose 5% in Water 500 ML IV SCH (03:00)
[2017-10-20 04:08] LABS: INR-International Normal Ratio 1.4; Prothrombin Time 17.7 SEC (12.0-14.7)
[2017-10-20] MEDS: cloNIDine 0.2 MG TAB PER TUBE PRN ×2 (04:12→14:34)
[2017-10-20] MEDS: DEXTROSE FS SCH (04:24)
[2017-10-20] MEDS: Dextrose 5% in Water 500 ML IV SCH ×2 (04:24→18:31)
[2017-10-20] MEDS: ADMIXTURE FEE FS SCH (04:24)
[2017-10-20] MEDS: STERILE WATER FS SCH (04:24)
[2017-10-20] MEDS: WATER FS SCH (04:24)
[2017-10-20 04:27] LABS: Anion Gap 12 mmol/L (10-20); BUN (Urea Nitrogen) 103 mg/dL (8.4-25.7); Calc. Creatinine Clearance 51 mL/min (70-130); Calcium 8.4 mg/dL (7.8-10.44); Carbon Dioxide 21 mmol/L (23-31); Chloride 119 mmol/L (98-107); Estimated GFR-MDRD 30; Glucose 192 mg/dL (80-115); Potassium 3.4 mmol/L (3.5-5.1); Sodium 149 mmol/L (136-145)
[2017-10-20 04:34] LABS: Band 3 % (5-11); Eosinophils 5 % (0-10); Hemoglobin 9.8 g/dL (14.0-18.0); Lymphocytes 7 % (21-51); MDiff Complete? YES; Macrocytosis SLIGHT = 6-15 cells (100X) (0-5/hpf); Mean Corpuscular HGB CONC 34.2 g/dL (32.0-36.0); Mean Corpuscular Hemoglobin 33.7 pg (27.0-31.0); Mean Corpuscular Volume 98.5 fl (80.0-94.0); Mean Platelet Volume 7.7 fL (7.4-10.4); Metamyelocyte 1 % (0-0); Monocytes 8 % (0-10); Neutrophil 75 % (42-75); PLT Morphology Comment Appears Decreased; Platelet Count 111 thou/uL (130-400); RBC Distribution Width 13.2 % (11.5-14.5); Red Blood Cell (RBC) Count 2.91 mill/uL (4.70-6.10); White Blood Cell (WBC) Count 7.1 thou/uL (4.8-10.8)
[2017-10-20] MEDS: HumaLOG 300 UNITS/3 ML VIAL SC PRN ×4 (05:13→21:24)
--- NOTE | 2017-10-20 06:34 | PDOC.PULCC ---
CCU Progress Note: Subj/Obj - Subjective Date: 10/20/17 Time: 06:32 Subjective: Comatose. No acute events overnight - Objective Allergies/Adverse Reactions: Allergies Allergy/AdvReac Type Severity Reaction Status Date / Time No Known Allergies Allergy Verified 10/06/17 13:51 Medications: Current Medications Acetaminophen (Tylenol) 650 mg PO Q4H PRN PRN Reason: Headache/Fever or Pain Last Admin: 10/10/17 21:42 Dose: 650 mg Albuterol/Ipratropium (Duoneb) 3 ml NEB [id number] [facility] Last Admin: 10/20/17 06:31 Dose: 3 ml Carvedilol (Coreg) 25 mg PO BID-WM [facility] Last Admin: 10/19/17 17:55 Dose: 25 mg Clonidine (Catapres) 0.2 mg PER TUBE BIDPRN PRN PRN Reason: SBP GREATER THAN 160 Last Admin: 10/20/17 04:12 Dose: 0.2 mg Dextrose/Water (Dextrose 50%) 25 gm SLOW IVP PRN PRN PRN Reason: Hypoglycemia Enalaprilat (Vasotec) 1.25 mg SLOW IVP Q6HR [facility] Last Admin: 10/20/17 05:07 Dose: 1.25 mg Famotidine (Pepcid) 20 mg PER TUBE DAILY [facility] Last Admin: 10/19/17 08:52 Dose: 20 mg Glucagon (Glucagon) 1 mg IM PRN PRN PRN Reason: Hypoglycemia Dextrose/Water (D5w) 1,000 mls @ 0 mls/hr IV .Q0M PRN; As Directed PRN Reason: Hypoglycemia Insulin Detemir 10 units/ (Miscellaneous Medication) 0.1 mls @ 0 mls/hr SC BID [facility] Last Admin: 10/19/17 21:36 Dose: 0.1 mls Levetiracetam 1,500 mg/ Device 100 mls @ 200 mls/hr IVPB BID [facility] Last Admin: 10/19/17 21:36 Dose: 100 mls Lacosamide 200 mg/ Sodium (Chloride) 70 mls @ 110 mls/hr IVPB BID [facility] Last Admin: 10/19/17 21:36 Dose: 70 mls Valproic Acid 1,000 mg/ Sodium (Chloride) 110 mls @ 110 mls/hr IVPB BID [facility] Last Admin: 10/19/17 21:37 Dose: 110 mls Cefepime HCl 1 gm/Miscellaneous Medication 1 each/ Sterile Water 10 mls @ 120 mls/hr SLOW IVP 1300 [facility] Last Admin: 10/19/17 12:04 Dose: 10 mls Dextrose/Water (D5w) 500 mls @ 75 mls/hr IV INF [facility] Last Admin: 10/20/17 04:24 Dose: 500 mls Dextrose/Water (D5w) 500 mls @ 75 mls/hr IV .Q6H40M [facility] Last Admin: 10/20/17 04:25 Dose: Not Given Insulin Human Lispro (Humalog) 0 units SC .AGGRESSIVE SLIDING PRN; Protocol PRN Reason: AGGRESSIVE SLIDING SCALE Last Admin: 10/20/17 05:13 Dose: 3 unit Magnesium Hydroxide (Milk Of Magnesium) 30 ml PO DAILYPRN PRN PRN Reason: Constipation Metoprolol Tartrate (Lopressor) 5 mg IVP Q4H PRN PRN Reason: FOR INC BP CK W/ MD PARAMATERS Last Admin: 10/14/17 22:12 Dose: 5 mg Mineral Oil/White Petrolatum (Lacri-Lube Ointment) 0 gm EA EYE PRN PRN PRN Reason: Dry Eyes Ondansetron HCl (Zofran) 4 mg IVP Q6H PRN PRN Reason: Nausea/Vomiting Sodium Chloride (Flush - Normal Saline) 10 ml IVF Q12HR [facility] Last Admin: 10/19/17 21:37 Dose: 10 ml Sodium Chloride (Flush - Normal Saline) 10 ml IVF PRN PRN PRN Reason: Saline Flush Last Admin: 10/08/17 17:46 Dose: 10 ml MAR Reviewed: Yes Vital Signs and I&O: Vital Signs Temp 98.4 F 10/20/17 04:00 Pulse 62 10/20/17 06:31 Resp 22 H 10/20/17 06:31 BP 155/52 H 10/20/17 05:07 Pulse Ox 99 10/20/17 06:31 Intake & Output 10/19/17 10/19/17 10/20/17 06:59 18:59 06:59 Intake Total 1092 1039 1746 Output Total 1120 1060 1210 53 Weight 243 lb 6.245 oz 249 lb 12.54 oz Intake: Intake, IV Amount 1092 1039 943 Dextrose 5% in Water 500 905 651 943 ml @ 75 mls/hr IV INF [facility] Rx#:[id number] Lacosamide 200 mg In 50 Sodium Chloride 0.9% 50 ml @ 110 mls/hr IVPB BID [facility] Rx#:[id number] Valproate Sodium 1,000 mg 100 In Sodium Chloride 0.9% 100 ml @ 110 mls/hr IVPB BID [facility] Rx#:[id number] levETIRAcetam In NaCl ( 200 Iso-Os) 1,500 mg In Premix Bag 1 bag @ 200 mls/hr IVPB BID [facility] Rx#: [id number] niCARdipine HCl 50 mg In 187 38 Sodium Chloride 0.9% 250 ML 230 ml @ Titrate IVPB INF [facility] Rx#:[id number] Oral 0 Tube Feeding 303 Tube Irrigant 500 Output: Output, Barber 1120 1060 1210 Other: Voiding Method Indwelling Catheter Indwelling Catheter Indwelling Catheter # Bowel Movements 1 Vent Setting: SIMV 13 35%, PS 10, Peep7 Spontaneous Breathing Test: not done CCU Progress Note: Exam - Physical Exam Constitutional: NAD Deviation from normal: scalp wound healing Neck: no nodes, no JVD Cardiovascular: RRR, no significant murmur, no rub Respiratory: clear to auscultation bilaterally Gastrointestinal: soft, non-tender, positive bowel sounds Musculoskeletal: edema present Deviation from normal: won't cooperate with exam Deviation from normal: comatose Skin: no rash - Labs Result Diagrams: 10/20/17 03:45 10/20/17 03:45 Lab results: Laboratory Results - last 24 hr 10/19/17 10/19/17 10/19/17 06:45 11:04 18:35 WBC RBC Hgb Hct MCV MCH MCHC RDW Plt Count MPV Neutrophils % (Manual) Band Neuts % (Manual) Lymphocytes % (Manual) Monocytes % (Manual) Eosinophils % (Manual) Basophils % (Manual) Metamyelocytes % (Man) Plt Morphology Comment Macrocytosis PT INR Specimen Type ARTERIAL Puncture Site RRA Bicarbonate Actual 19.5 L ABG pH 7.36 ABG pCO2 35.3 ABG pO2 97.7 ABG O2 Sat Calc/Paresh 97.7 ABG O2 Content 12.1 L ABG Base Excess -5.3 L ABG Hematocrit 21.9 L ABG Hemoglobin 8.8 L ABG Oxyhemoglobin 95.9 ABG Carboxyhemoglobin 1.2 ABG Methemoglobin 0.6 ABG Deoxyhemoglobin 2.3 Juan Antonio Test POSITIVE A-a O2 Gradient 109.825 H Sodium 153 H Potassium 3.1 L Chloride 117 H Ionized Calcium 1.3 Mode of Support PSV Inspired O2 35 Pressure Support 20 PEEP or CPAP 5.0 Carbon Dioxide Anion Gap BUN Creatinine Estimated GFR (MDRD) Glucose POC Glucose 189 H 169 H Calcium 10/19/17 10/20/17 10/20/17 21:44 03:45 03:45 WBC 7.1 RBC 2.91 L Hgb 9.8 L Hct 28.7 L MCV 98.5 H MCH 33.7 H MCHC 34.2 RDW 13.2 Plt Count 111 L MPV 7.7 Neutrophils % (Manual) 75 Band Neuts % (Manual) 3 L Lymphocytes % (Manual) 7 L Monocytes % (Manual) 8 Eosinophils % (Manual) 5 Basophils % (Manual) 1 Metamyelocytes % (Man) 1 H Plt Morphology Comment Appears Decreased L Macrocytosis SLIGHT = 6-15 cells PT INR Specimen Type Puncture Site Bicarbonate Actual ABG pH ABG pCO2 ABG pO2 ABG O2 Sat Calc/Paresh ABG O2 Content ABG Base Excess ABG Hematocrit ABG Hemoglobin ABG Oxyhemoglobin ABG Carboxyhemoglobin ABG Methemoglobin ABG Deoxyhemoglobin Juan Antonio Test A-a O2 Gradient Sodium 149 H Potassium 3.4 L Chloride 119 H Ionized Calcium Mode of Support Inspired O2 Pressure Support PEEP or CPAP Carbon Dioxide 21 L Anion Gap 12 BUN 103 H Creatinine 2.23 H Estimated GFR (MDRD) 30 Glucose 192 H POC Glucose 192 H Calcium 8.4 10/20/17 03:45 WBC RBC Hgb Hct MCV MCH MCHC RDW Plt Count MPV Neutrophils % (Manual) Band Neuts % (Manual) Lymphocytes % (Manual) Monocytes % (Manual) Eosinophils % (Manual) Basophils % (Manual) Metamyelocytes % (Man) Plt Morphology Comment Macrocytosis PT 17.7 H INR 1.4 Specimen Type Puncture Site Bicarbonate Actual ABG pH ABG pCO2 ABG pO2 ABG O2 Sat Calc/Paresh ABG O2 Content ABG Base Excess ABG Hematocrit ABG Hemoglobin ABG Oxyhemoglobin ABG Carboxyhemoglobin ABG Methemoglobin ABG Deoxyhemoglobin Juan Antonio Test A-a O2 Gradient Sodium Potassium Chloride Ionized Calcium Mode of Support Inspired O2 Pressure Support PEEP or CPAP Carbon Dioxide Anion Gap BUN Creatinine Estimated GFR (MDRD) Glucose POC Glucose Calcium CCU Progress Note: A/P - Problems (1) Acute respiratory failure with hypoxemia Current Visit: Yes Status: Acute Code(s): J96.01 - ACUTE RESPIRATORY FAILURE WITH HYPOXIA (2) Hypernatremia Current Visit: Yes Status: Acute Code(s): E87.0 - HYPEROSMOLALITY AND HYPERNATREMIA (3) Acute renal insufficiency Current Visit: Yes Status: Acute Code(s): N28.9 - DISORDER OF KIDNEY AND URETER, UNSPECIFIED (4) Encephalopathy acute Current Visit: Yes Status: Acute Code(s): G93.40 - ENCEPHALOPATHY, UNSPECIFIED - Time Spent with Patient Time: 30 min CC time - Plan Plan: Begin to wean RR Continue free H20 thru peg Placement
[2017-10-20] MEDS: Famotidine 20 MG TAB PER TUBE SCH (08:27)
[2017-10-20] MEDS: Insulin Detemir 100 UNITS/ML 10 UNITS in Pre-Filled Syringe 1 EACH SC SCH ×2 (08:27→21:16)
[2017-10-20] MEDS: Carvedilol 25 MG TAB PO SCH ×2 (08:27→16:00)
[2017-10-20] MEDS: levETIRAcetam In NaCl (Iso-Os) 1,500 MG in Premix Bag 1 BAG IVPB SCH ×4 (08:27→21:16)
[2017-10-20] MEDS: Valproate Sodium 1,000 MG in Sodium Chloride 0.9% 100 ML IVPB SCH ×2 (08:28→21:16)
--- NOTE | 2017-10-20 08:31 | RAD ---
CHEST ONE VIEW: History: Ventilated patient. Comparison: Prior day. FINDINGS: There is new right upper lobe collapse. There is also layering pleural effusions bilaterally. Edema i s similar. Port catheter is similar. Tip of the port catheter is in the right subclavian vein. IMPRESSION: Interval right upper lobe collapse. POS: [facility]
[2017-10-20] MEDS: Lacosamide 200 MG in Sodium Chloride 0.9% 50 ML IVPB SCH ×2 (10:08→21:18)
[2017-10-20] MEDS: Cefepime 1 GM, Admixture Fee 1 EACH in Sterile Water 10 ML SLOW IVP SCH (12:12)
--- NOTE | 2017-10-20 17:59 | MRI ---
MRI BRAIN NONCONTRAST 10/20/17 HISTORY: Intracranial hemorrhage. Recent surgery. COMPARISON: 10/16/17 FINDINGS: A small amount of residual subarachnoid hemorrhage over the left frontal convexity is similar in appe arance to the recent CT exam. An oval well circumscribed collection of increased T1 and T2 signal at the left posterior frontal lobe is favored to be within a sulcus. It measures up to 1.9 cm in length x 0.7 cm depth and has the appearance of subacute hematoma. Minimal subacute subdural hematoma remain s without significant mass effect. Minimal hemorrhage remains within the dependent portion of each la teral ventricle. Septum pellucidum remains midline. Postoperative changes of the left cranium are aga in demonstrated. Mucosal thickening is apparent throughout the mastoid air cells. IMPRESSION: Stable postoperative appearance of the head, with small amount of residual subarachnoid, subdural, an d intraventricular hemorrhage, subacute, as detailed above. There is no mass effect. No new abnormali ties are apparent. POS: [facility]
--- NOTE | 2017-10-20 23:15 | PRG ---
DATE OF SERVICE: 10/20/2017 SUBJECTIVE: The patient was seen and examined at bedside, remains on a trach and did not responding. No family at the bedside. OBJECTIVE: GENERAL: This is a well-built male, seen in ICU. VITAL SIGNS: Temperature 98, pulse 65, respiratory 20, blood pressure 145/45. HEENT: Trach present. RESPIRATORY: Chest clear. GASTROINTESTINAL: Abdomen is soft. MUSCULOSKELETAL: 1+ edema. DERMATOLOGIC: None. NEUROLOGIC: Not responding. LABORATORY DATA: Potassium 3.4, sodium 149, BUN 103, creatinine is 2.23. ASSESSMENT AND PLAN: 1. Acute kidney injury on chronic kidney disease stage 3. I will continue to monitor renal function , which is stable. 2. Hypernatremia. I agree with free water. 3. Hypokalemia, replaced. 4. Acidosis. 5. Hyperchloremia. 6. Acute hypoxic respiratory failure. 7. Altered mentation, not getting better. Although prognosis remains poor, renal function is stable. We will follow.
[2017-10-21] MEDS: cloNIDine 0.2 MG TAB PER TUBE PRN (00:12)
[2017-10-21] MEDS: Enalaprilat Dihydrate 1.25 MG/ML VIAL SLOW IVP SCH ×4 (00:12→17:33)
[2017-10-21] MEDS: Dextrose 5% in Water 500 ML IV SCH (04:11)
[2017-10-21] MEDS: HumaLOG 300 UNITS/3 ML VIAL SC PRN ×4 (04:22→21:26)
[2017-10-21 04:54] LABS: Anion Gap 12 mmol/L (10-20); BUN (Urea Nitrogen) 94 mg/dL (8.4-25.7); Band 5 % (5-11); Calc. Creatinine Clearance 57 mL/min (70-130); Calcium 8.2 mg/dL (7.8-10.44); Carbon Dioxide 20 mmol/L (23-31); Chloride 119 mmol/L (98-107); Eosinophils 1 % (0-10); Estimated GFR-MDRD 33; Glucose 244 mg/dL (80-115); Hemoglobin 9.4 g/dL (14.0-18.0); Lymphocytes 10 % (21-51); MDiff Complete? YES; Mean Corpuscular HGB CONC 32.8 g/dL (32.0-36.0); Mean Corpuscular Hemoglobin 32.4 pg (27.0-31.0); Mean Corpuscular Volume 98.8 fl (80.0-94.0); Mean Platelet Volume 8.3 fL (7.4-10.4); Monocytes 10 % (0-10); Neutrophil 74 % (42-75); PLT Morphology Comment Appears Decreased; Platelet Count 109 thou/uL (130-400); Potassium 3.4 mmol/L (3.5-5.1); RBC Distribution Width 13.3 % (11.5-14.5); Sodium 148 mmol/L (136-145); White Blood Cell (WBC) Count 7.2 thou/uL (4.8-10.8)
[2017-10-21] MEDS: Carvedilol 25 MG TAB PO SCH ×2 (08:15→17:33)
[2017-10-21] MEDS: Famotidine 20 MG TAB PER TUBE SCH (08:15)
[2017-10-21] MEDS: levETIRAcetam In NaCl (Iso-Os) 1,500 MG in Premix Bag 1 BAG IVPB SCH ×4 (08:16→21:27)
[2017-10-21] MEDS ORDERED: Potassium Chloride 40 MEQ in Premix Bag 1 BAG IVPB SCH (08:45)
--- NOTE | 2017-10-21 09:14 | PRG ---
DATE OF SERVICE: 10/21/2017 SUBJECTIVE: The patient remains on mechanical ventilation through tracheostomy. He is comatose. He has had no improvement in his neurologic exam over the last several days. OBJECTIVE: VITAL SIGNS: Temperature is 99.5, pulse 67, blood pressure 168/55, and 24 hour intake is 3893, outpu t 2516. HEENT: Unremarkable except for the scalp incision, which is healing. His pupils do react. Orophary nx is clear. NECK: Trach in good position. LUNGS: Clear anteriorly. CARDIOVASCULAR: S1 and S2 regular, without murmur. ABDOMEN: Soft, nontender. PEG tube site looks okay. EXTREMITIES: Trace edema. LABORATORY DATA: Sodium 140, potassium 3.4, chloride 119, CO2 of 20, BUN 94, creatinine 2.1, and glu cose 244. White blood cell count 7.2, hematocrit 28.7, and platelet count 109. ASSESSMENT: 1. Acute respiratory failure related to severe encephalopathy. 2. Status post trach and PEG tube placement. 3. Acute renal insufficiency. 4. Hypernatremia secondary to osmolar state. PLAN: 1. Continue D5W and free water through PEG tube. 2. Work towards LTAC placement. 3. Consider discontinuing cefepime after today. 4. Continue support with tube feeds. 5. T-piece trials. The above encompassed 30 minutes critical care time.
[2017-10-21] MEDS: Valproate Sodium 1,000 MG in Sodium Chloride 0.9% 100 ML IVPB SCH ×2 (09:32→21:26)
[2017-10-21] MEDS: Insulin Detemir 100 UNITS/ML 10 UNITS in Pre-Filled Syringe 1 EACH SC SCH (09:32)
--- NOTE | 2017-10-21 11:40 | PRG ---
DATE OF SERVICE: 10/21/2017 NEPHROLOGY PROGRESS NOTE SUBJECTIVE: Patient was seen and examined at ICU and not waking up and not responsive. No family me mbers at beside, on trach and PEG. OBJECTIVE: GENERAL: This is a well-built male, seen in ICU. VITAL SIGNS: Temperature 99.5, pulse 67, respiratory rate 21, blood pressure 160/50. HEENT: [place] present in the scalp. RESPIRATORY: Clear anteriorly. CARDIOVASCULAR SYSTEM: S1, S2 heard. GASTROINTESTINAL: Soft. MUSCULOSKELETAL: 1+ edema. DERMATOLOGIC: No skin rash. NEUROLOGIC: Not waking up. LABORATORY DATA: Potassium is 3.4, BUN is 94, and creatinine is 2.05. ASSESSMENT AND PLAN: 1. Acute kidney injury. Creatinine is slowly getting better. 2. Hypernatremia. 3. Hyperchloremia 4. Hypokalemia. 5. Acidosis. 6. Renal function is stable with good urine output. We will monitor. Avoid nephrotoxins.
[2017-10-21] MEDS: Lacosamide 200 MG in Sodium Chloride 0.9% 50 ML IVPB SCH ×2 (11:49→21:27)
[2017-10-21] MEDS: Cefepime 1 GM, Admixture Fee 1 EACH in Sterile Water 10 ML SLOW IVP SCH (13:18)
[2017-10-21] MEDS: Acetaminophen 325 MG TAB PO PRN (21:26)
[2017-10-21] MEDS: Insulin Detemir 100 UNITS/ML 20 UNITS in Pre-Filled Syringe 1 EACH SC SCH (21:26)
[2017-10-22] MEDS: Enalaprilat Dihydrate 1.25 MG/ML VIAL SLOW IVP SCH ×4 (00:03→17:14)
[2017-10-22] MEDS: HumaLOG 300 UNITS/3 ML VIAL SC PRN ×3 (04:12→17:16)
[2017-10-22 04:58] LABS: Anion Gap 13 mmol/L (10-20); BUN (Urea Nitrogen) 91 mg/dL (8.4-25.7); Calc. Creatinine Clearance 57 mL/min (70-130); Calcium 8.5 mg/dL (7.8-10.44); Carbon Dioxide 20 mmol/L (23-31); Chloride 116 mmol/L (98-107); Estimated GFR-MDRD 32; Glucose 276 mg/dL (80-115); Sodium 145 mmol/L (136-145)
[2017-10-22 05:09] LABS: Band 5 % (5-11); Eosinophils 1 % (0-10); Lymphocytes 3 % (21-51); MDiff Complete? YES; Macrocytosis SLIGHT = 6-15 cells (100X) (0-5/hpf); Mean Corpuscular HGB CONC 32.7 g/dL (32.0-36.0); Mean Corpuscular Hemoglobin 32.5 pg (27.0-31.0); Mean Corpuscular Volume 99.3 fl (80.0-94.0); Mean Platelet Volume 8.1 fL (7.4-10.4); Monocytes 3 % (0-10); Neutrophil 88 % (42-75); PLT Morphology Comment Appears Decreased; Platelet Count 105 thou/uL (130-400); RBC Distribution Width 13.3 % (11.5-14.5); Red Blood Cell (RBC) Count 3.37 mill/uL (4.70-6.10); White Blood Cell (WBC) Count 10.3 thou/uL (4.8-10.8)
[2017-10-22] MEDS: Dextrose 5% in Water 500 ML IV SCH (05:33)
[2017-10-22] MEDS: Famotidine 20 MG TAB PER TUBE SCH (08:27)
[2017-10-22] MEDS: Valproate Sodium 1,000 MG in Sodium Chloride 0.9% 100 ML IVPB SCH ×2 (08:28→21:13)
[2017-10-22] MEDS: levETIRAcetam In NaCl (Iso-Os) 1,500 MG in Premix Bag 1 BAG IVPB SCH ×4 (08:28→21:14)
[2017-10-22] MEDS: Carvedilol 25 MG TAB PO SCH ×2 (08:28→17:14)
[2017-10-22] MEDS: Insulin Detemir 100 UNITS/ML 20 UNITS in Pre-Filled Syringe 1 EACH SC SCH ×2 (08:31→21:14)
[2017-10-22] MEDS: Lacosamide 200 MG in Sodium Chloride 0.9% 50 ML IVPB SCH ×2 (09:16→21:30)
--- NOTE | 2017-10-22 10:28 | PRG ---
DATE OF SERVICE: 10/22/2017 SUBJECTIVE: The patient remains on mechanical ventilation through a tracheostomy. He continues to b e comatose. OBJECTIVE: VITAL SIGNS: On exam, his temperature is 98.9 with a T-max of 101.1 yesterday, pulse 79, blood press ure 141/55. Total intake for 24 hours 4237, output 2415. HEENT: He still has a scalp wound which is healing well. Pupils react. Oropharynx clear. NECK: Trach looks good. CARDIOVASCULAR: S1 and S2 regular without murmur. LUNGS: Clear without wheezing. ABDOMEN: Soft, nontender. PEG tube site looks okay. EXTREMITIES: No edema. LABORATORY DATA: White blood cell count 10, hematocrit 33.5, platelet count 105. Sodium 145, potass ium 4, chloride 116, CO2 20, BUN 91, creatinine 2.1, glucose 276. ASSESSMENT: 1. Acute respiratory failure related to severe encephalopathy. 2. Copious diarrhea - rule out Clostridium difficile. 3. Status post tracheostomy and PEG. 4. Acute renal insufficiency, which is improving. 5. Hypernatremia, which is improving. PLAN: 1. Stop D5W. 2. Check C. difficile. 3. Discontinue antibiotics for the time being. 4. Clostridium difficile assay. 5. Continue T-piece trials as tolerated.
[2017-10-22] MEDS: Scopolamine 1.5 mg/72 hour Patch TD SCH (11:03)
--- NOTE | 2017-10-22 13:27 | EKG ---
Test Reason : STAT Blood Pressure : / mmHG Vent. Rate : 106 BPM Atrial Rate : 106 BPM P-R Int : 196 ms QRS Dur : 120 ms QT Int : 350 ms P-R-T Axes : 065 -24 119 degrees QTc Int : 464 ms Sinus tachycardia Inferior infarct , age undetermined Marked ST abnormality, possible lateral subendocardial injury Abnormal ECG No previous ECGs available Confirmed by MARIOLA KOHLER MD ([id number]) on 10/22/2017 1:27:24 PM Referred By: Confirmed By:MARIOLA KOHLER MD
--- NOTE | 2017-10-22 17:30 | PRG ---
DATE OF SERVICE 10/22/2017 SUBJECTIVE: The patient was seen and examined in ICU, intubated, but not waking up even though off s edation. OBJECTIVE: GENERAL: This is a well-built male seen in ICU, intubated and not responsive. VITAL SIGNS: Temperature 99.7, pulse 73, respiratory rate 32, blood pressure 134/53. HEENT: Intubated. CARDIOVASCULAR: S1, S2 heard. RESPIRATORY: Clear to auscultation. GASTROINTESTINAL: Abdomen is soft. MUSCULOSKELETAL: 1+ edema. DERMATOLOGIC: No skin rash. NEUROLOGIC: Intubated and not responsive. LABORATORY DATA: Potassium is 4.0, sodium is 145, BUN is 91, creatinine is 2.06. ASSESSMENT AND PLAN: 1. Acute kidney injury. Creatinine is stable. 2. Hypernatremia, better with free water. 3. Hyperchloremia, better. 4. Hypokalemia, replace and monitor. 5. Acidosis, stable. 6. Hypertension. 7. Edema, controlled. PLAN: We will stop IV fluids if okay with critical care and continue on flushes and tube feeds at th is point and we will follow. Avoid nephrotoxins. We will monitor renal function.
[2017-10-22] MEDS: Vancomycin HCl 25 MG/ML Oral PO SCH (18:16)
[2017-10-23] MEDS: Vancomycin HCl 25 MG/ML Oral PO SCH ×4 (00:53→16:45)
[2017-10-23] MEDS: HumaLOG 300 UNITS/3 ML VIAL SC PRN ×5 (01:01→21:59)
[2017-10-23] MEDS: Enalaprilat Dihydrate 1.25 MG/ML VIAL SLOW IVP SCH ×5 (06:30→23:24)
[2017-10-23 06:43] LABS: Anion Gap 15 mmol/L (10-20); BUN (Urea Nitrogen) 96 mg/dL (8.4-25.7); Calc. Creatinine Clearance 51 mL/min (70-130); Calcium 8.9 mg/dL (7.8-10.44); Carbon Dioxide 19 mmol/L (23-31); Chloride 113 mmol/L (98-107); Estimated GFR-MDRD 28; Glucose 245 mg/dL (80-115); Potassium 3.7 mmol/L (3.5-5.1); Sodium 143 mmol/L (136-145)
[2017-10-23 06:44] LABS: Band 4 % (5-11); Hemoglobin 9.5 g/dL (14.0-18.0); Lymphocytes 3 % (21-51); MDiff Complete? YES; Mean Corpuscular Hemoglobin 32.5 pg (27.0-31.0); Mean Corpuscular Volume 98.6 fl (80.0-94.0); Mean Platelet Volume 8.5 fL (7.4-10.4); Metamyelocyte 1 % (0-0); Monocytes 9 % (0-10); Neutrophil 83 % (42-75); PLT Morphology Comment Appears Decreased; Platelet Count 100 thou/uL (130-400); RBC Distribution Width 12.9 % (11.5-14.5); Red Blood Cell (RBC) Count 2.93 mill/uL (4.70-6.10); White Blood Cell (WBC) Count 9.1 thou/uL (4.8-10.8)
[2017-10-23] MEDS ORDERED: Sodium Chloride 0.45% 1,000 ML IV SCH (07:45)
[2017-10-23] MEDS: Famotidine 20 MG TAB PER TUBE SCH (08:49)
[2017-10-23] MEDS: Carvedilol 25 MG TAB PO SCH ×2 (08:49→16:45)
[2017-10-23] MEDS: Insulin Detemir 100 UNITS/ML 20 UNITS in Pre-Filled Syringe 1 EACH SC SCH ×2 (08:50→20:38)
[2017-10-23] MEDS: levETIRAcetam In NaCl (Iso-Os) 1,500 MG in Premix Bag 1 BAG IVPB SCH ×4 (08:50→20:59)
[2017-10-23] MEDS: Valproate Sodium 1,000 MG in Sodium Chloride 0.9% 100 ML IVPB SCH ×2 (08:50→21:01)
[2017-10-23] MEDS: Vancomycin HCl 1.5 GM in Sodium Chloride 0.9% 250 ML 300 ML IVPB SCH (08:51)
[2017-10-23] MEDS ORDERED: Vancomycin HCl 1 GM in Premix Bag 1 BAG IVPB SCH (09:00)
[2017-10-23] MEDS: Sodium Chloride 0.9% 1,000 ML IV SCH (09:17)
[2017-10-23] MEDS: Lacosamide 200 MG in Sodium Chloride 0.9% 50 ML IVPB SCH ×2 (09:17→21:57)
--- NOTE | 2017-10-23 09:40 | PRG ---
DATE OF SERVICE: 10/23/2017 A 35 minutes critical care time. SUBJECTIVE: The patient remains on mechanical ventilation through tracheostomy. Neurologically, he remains unresponsive to deep painful stimuli, but has spontaneous respirations. OBJECTIVE: VITAL SIGNS: On exam, his temperature is 98.9 with a T-max of 99.7, pulse 87, blood pressure 162/59. A 24 hour intake 1266, output 1580. HEENT: Scalp wound looks to be healing well. NECK: Tracheostomy site okay. LUNGS: Fairly clear anteriorly. CARDIOVASCULAR: S1 and S2 regular. ABDOMEN: Soft, nontender, having copious diarrhea with C. diff positive stool. EXTREMITIES: No edema. LABORATORY DATA: White blood cell count 9.1, hematocrit 28.9, platelet count 100. Sodium 143, potas sium 3.7, chloride 113, CO2 19, BUN 96, creatinine 2.3, glucose 245. ASSESSMENT: 1. Clostridium difficile colitis. 2. Acute respiratory failure requiring mechanical ventilation and tracheostomy placement. 3. Status post brain surgery. 4. Acute renal insufficiency, which is improving up until today when creatinine bumped up just a lit tle. PLAN: 1. Continue oral vancomycin. 2. Culture secretions. 3. Rule out tracheitis. 4. Check chest x-ray tomorrow. 5. Restart some IV fluids.
--- NOTE | 2017-10-23 20:02 | PRG ---
DATE OF SERVICE: 10/23/2017 SUBJECTIVE: The patient is seen and examined in ICU and not responding. PHYSICAL EXAMINATION: GENERAL: This is a well-built male who is in ICU and intubated. VITAL SIGNS: Temperature 100.4, pulse 74, respiratory rate 18, blood pressure 190/63. HEENT: Intubated. CARDIOVASCULAR: S1, S2 heard. RESPIRATORY: Clear. GASTROINTESTINAL: Abdomen is soft. MUSCULOSKELETAL: DERMATOLOGIC: No skin rash. NEUROLOGIC: Intubated. LABORATORY DATA: Potassium is 3.7, BUN is 96, creatinine is 2.3. ASSESSMENT AND PLAN: 1. Acute kidney injury on chronic kidney disease stage 3. Renal function with above, most likely fr om sepsis. Agree with IV fluids. 2. Hypernatremia, better with free water. 3. Hypokalemia, replaced. . 4. Hypertenion. Monitor. 5. Fever. Further workup per primary team. I agree with IV fluids, we will follow.
[2017-10-24] MEDS: Vancomycin HCl 25 MG/ML Oral PO SCH ×5 (00:15→23:57)
[2017-10-24] MEDS: Sodium Chloride 0.9% 1,000 ML IV SCH ×2 (00:15→12:41)
[2017-10-24] MEDS: cloNIDine 0.2 MG TAB PER TUBE PRN ×2 (00:25→14:51)
[2017-10-24] MEDS: Metoprolol Tartrate 5 MG/5 ML VIAL IVP PRN (02:50)
[2017-10-24] MEDS: niCARdipine HCl 25 MG in Sodium Chloride 0.9% 250 ML 240 ML IVPB SCH ×5 (04:02→22:35)
[2017-10-24] MEDS: HumaLOG 300 UNITS/3 ML VIAL SC PRN ×3 (04:08→16:11)
[2017-10-24 05:31] LABS: Band 11 % (5-11); Eosinophils 1 % (0-10); Hemoglobin 8.9 g/dL (14.0-18.0); Lymphocytes 8 % (21-51); MDiff Complete? YES; Mean Corpuscular HGB CONC 32.6 g/dL (32.0-36.0); Mean Corpuscular Hemoglobin 32.3 pg (27.0-31.0); Mean Corpuscular Volume 99.1 fl (80.0-94.0); Mean Platelet Volume 8.4 fL (7.4-10.4); Metamyelocyte 1 % (0-0); Monocytes 6 % (0-10); Neutrophil 73 % (42-75); PLT Morphology Comment Appears Decreased; Platelet Count 96 thou/uL (130-400); RBC Distribution Width 13.2 % (11.5-14.5); Red Blood Cell (RBC) Count 2.76 mill/uL (4.70-6.10); White Blood Cell (WBC) Count 6.7 thou/uL (4.8-10.8)
[2017-10-24 05:36] LABS: Anion Gap 13 mmol/L (10-20); BUN (Urea Nitrogen) 100 mg/dL (8.4-25.7); Calc. Creatinine Clearance 55 mL/min (70-130); Calcium 8.7 mg/dL (7.8-10.44); Carbon Dioxide 21 mmol/L (23-31); Chloride 117 mmol/L (98-107); Estimated GFR-MDRD 30; Glucose 186 mg/dL (80-115); Potassium 3.7 mmol/L (3.5-5.1); Sodium 147 mmol/L (136-145)
[2017-10-24] MEDS: Enalaprilat Dihydrate 1.25 MG/ML VIAL SLOW IVP SCH ×4 (06:04→23:56)
--- NOTE | 2017-10-24 08:24 | PRG ---
DATE OF SERVICE: 10/24/2017 Mr. Crawford is on the 18th day of his hospital stay. He is on postoperative day 17. His reese are still intact on his incision site, so we will remove those today. The incisions are well approximate d. No drainage. No dehiscence, no erythema that I am noting. He does have a positive C. diff and h as been treated as such. Nurse overnight states that he actually opened his eyes twice, but on my ex amination and during staple removal, I get essentially no response in any significant way in his face , arms or legs, so for me he is essentially still nonresponsive with no exact etiology for why that i s. We will continue to monitor as needed.
[2017-10-24] MEDS: Famotidine 20 MG TAB PER TUBE SCH (08:26)
[2017-10-24] MEDS: levETIRAcetam In NaCl (Iso-Os) 1,500 MG in Premix Bag 1 BAG IVPB SCH ×4 (08:26→20:18)
[2017-10-24] MEDS: Carvedilol 25 MG TAB PO SCH ×2 (08:26→16:11)
[2017-10-24] MEDS: Valproate Sodium 1,000 MG in Sodium Chloride 0.9% 100 ML IVPB SCH ×2 (09:22→20:18)
[2017-10-24] MEDS: Lacosamide 200 MG in Sodium Chloride 0.9% 50 ML IVPB SCH ×2 (09:37→21:50)
[2017-10-24] MEDS: Insulin Detemir 100 UNITS/ML 20 UNITS in Pre-Filled Syringe 1 EACH SC SCH ×2 (09:45→20:19)
[2017-10-24] MEDS: Vancomycin HCl 1.5 GM in Sodium Chloride 0.9% 250 ML 300 ML IVPB SCH (10:32)
--- NOTE | 2017-10-24 13:18 | PRG ---
DATE OF SERVICE: 10/24/2017 SERVICE: Pulmonary Medicine. INTERVAL HISTORY: The patient is doing fine from a respiratory standpoint. He got placed on a T-col lar trial a couple of days ago, but promptly developed increasing hypoxemia. He remains significantl y volume overloaded. His mentation is yet to improve. Otherwise, there has been no interval change to his condition. PHYSICAL EXAMINATION: VITAL SIGNS: Afebrile currently with T-max of 99.7 this morning. Yesterday, he had 100.5 fever. HEENT: Normocephalic. There is a scar on the left side of the scalp. Sclerae are white, conjunctiv ae pink. Oral mucosa is moist without lesions. LUNGS: Decent air entry. There is no prolonged expiratory phase or wheezing. Bilateral rhonchi are present. HEART: Normal rate and regular. ABDOMEN: Soft, nontender, nondistended. Bowel sounds positive. MUSCULOSKELETAL: No cyanosis or clubbing. There is diffuse 2+ pitting throughout bilateral upper an d lower extremities and it is more pronounced at the sacral region. GENITOURINARY: Barber catheter in place. NEUROLOGIC: The patient has normal pupillary responses, although they are little sluggish. He cough ed and over-breathes the ventilator. LABORATORY DATA: WBC 6.7, hemoglobin 8.9, platelets 96,000 and gently down trending. Lymphocyte cou nt is 8% and band count is up trending towards 11%. INR 1.4. A pH 7.36, pCO2 35, pO2 97. This was done several days ago. Creatinine 2.18 and once again trending downward. Sodium 147 and up trending , chloride 117 and up trending. Basic metabolic profile is otherwise unremarkable. Respiratory cult ure is negative to date and is growing multiple organisms. Final results are currently pending. C. difficile is antigen and toxin positive. Urine culture and blood culture x2 are unremarkable. IMAGING: Chest x-ray demonstrates tracheostomy tube is in good position. There is decreased lung vo lume. There is a port catheter in the left IJ. Previous sternotomy is evident. I do not see any ob vious pleural parenchymal opacification. ASSESSMENT: 1. Acute hypoxic respiratory failure, improving. 2. Community-acquired pneumonia, status post full course of antibiotics. 3. Tracheobronchitis, new onset. 4. Clostridium difficile infection, improving. 5. Subarachnoid hemorrhage with subdural hematoma, postop day #18. 6. Recent status epilepticus, resolved at this time. 7. Acute kidney injury, improving. 8. History of aortic valve replacement, requiring anticoagulation at some future time. PLAN: The patient remains significantly volume overloaded for this hospital stay. We will continue our diuretics. We will hold his IV fluids as it bumped his sodium and chloride. We will continue fr ee water flushes through the PEG tube as he seems to be tolerating these things. Pulmonary or Critic al Care will continue to follow while he remains in this location. At this point, he is stable for t ransition out of the hospital to LTAC from a purely medical perspective.
--- NOTE | 2017-10-24 13:29 | PDOC.CTH ---
Cardiology Progress Note - Subjective The pt seen and examined. No overnight events. He breaths over the vent machine setting. No response to stimulation. - Objective Vital Signs Temp Pulse Resp BP Pulse Ox 10/24/17 12:39 159/68 H 10/24/17 12:00 27 H 10/24/17 11:02 67 159/68 H 10/24/17 10:00 27 H 10/24/17 09:30 99.7 F H 67 25 H 93 L 10/24/17 09:15 25 H 10/24/17 09:00 99.7 F H 10/24/17 08:11 80 170/72 H 10/24/17 07:00 99.1 F 10/24/17 06:04 154/68 H 10/24/17 06:00 31 H 10/24/17 04:00 31 H 10/24/17 03:19 67 29 H 100 10/24/17 02:00 32 H Admit Weight 230 lb 9.656 oz Weight 257 lb 4.471 oz 10/23/17 10/24/17 10/25/17 06:59 06:59 06:59 Intake Total 1266 4951 100 Output Total 1580 2090 550 Balance -314 2861 -450 - Physical Examination General/Neuro: other: (no response to stimulation) Lungs: other: (diminished at bases) Heart: RRR Abdomen: soft Extremities: other: (3-4+ pitting BLE edema) - Telemetry Telemetry Rhythm: SR 60s - Labs Result Diagrams: 10/24/17 04:45 10/24/17 04:45 Troponin/CKMB CK-MB (CK-2) 21.6 ng/mL (0-6.6) H* 10/06/17 11:53 Troponin I 7.882 ng/mL (< 0.028) H* 10/07/17 03:28 - Assessment/Plan 1. Acute hypoxic resp. failure - on Vent machine; managed by control technician 2. PNA and Tracheobunchitis - on IV antibiotics; managed by control technician/PCP 3. Subarachnoid hemorrhage and subdural hematoma - 4. HTN - stable with Cardene drip, Coreg 25mg BID, and clonidine; cont. monitor 5. NSTEMI - stable; cont. monitor on tele 6. AKD - improving 7. Hx of AVR with Coumadin - Off any anticoagulants; Coumadin will be resumed when his condition is stable MAR reviewed Review of Systems - Review of Systems Constitutional: reports: see HPI EENTM: reports: see HPI Respiratory: reports: see HPI Cardiac (ROS): reports: see HPI ABD/GI: reports: see HPI : reports: see HPI
[2017-10-24] MEDS ORDERED: Furosemide 40 MG/4 ML VIAL SLOW IVP SCH (13:30)
--- NOTE | 2017-10-24 13:54 | RAD ---
PORTABLE CHEST 1 VIEW: DATE: 10/24/17. TIME: 4:36 a.m. HISTORY: Respiratory failure. FINDINGS: Comparison is made with the exam of 12/21/16. Changes of median sternotomy are again seen. The tracheostomy tube remains in place. The tip of the left internal jugular Port-A-Cath remains in the projection of the right subclavian vein. Interval resolution of the right upper lobe collapse has occurred since the last study. Small pleural effusio ns are again seen. No pneumothorax is identified. POS: [facility]
--- NOTE | 2017-10-24 18:46 | PRG ---
DATE OF SERVICE: 10/24/2017 NEPHROLOGY PROGRESS NOTE SUBJECTIVE: The patient was seen and examined at the bedside and remains in ICU and is not respondin g and remains intubated. PHYSICAL EXAMINATION: GENERAL: Well-built, male, intubated. VITAL SIGNS: Temperature 98.1, pulse 60, respiratory 18, blood pressure 140/62. HEENT: Atraumatic, intubated through trach and reese present in his scalp wounds. CARDIOVASCULAR: S1, S2 heard. RESPIRATORY: Clear anteriorly. ABDOMEN: Soft. MUSCULOSKELETAL: 1+ edema. DERMATOLOGIC: No rash. NEUROLOGIC: Not responding, no awaking. LABORATORY DATA: Sodium is 147, potassium is 3.7, BUN is 100, creatinine is 2.1. ASSESSMENT AND PLAN: 1. Acute kidney injury. Renal function slightly stable today. Urine output is still good. He made almost 2 liters of urine yesterday. 2. Hypernatremia. Continue free water source. 3. Hyperchloremia. 4. Acidosis, mild. 5. Hypertension. 6. Respiratory failure. Plan is to continue to monitor once he is stable. We will follow.
[2017-10-25] MEDS: niCARdipine HCl 25 MG in Sodium Chloride 0.9% 250 ML 240 ML IVPB SCH (02:38)
[2017-10-25] MEDS: HumaLOG 300 UNITS/3 ML VIAL SC PRN ×2 (03:26→21:11)
[2017-10-25 04:55] LABS: Anion Gap 12 mmol/L (10-20); BUN (Urea Nitrogen) 104 mg/dL (8.4-25.7); Calc. Creatinine Clearance 58 mL/min (70-130); Calcium 8.4 mg/dL (7.8-10.44); Carbon Dioxide 19 mmol/L (23-31); Chloride 117 mmol/L (98-107); Estimated GFR-MDRD 32; Glucose 160 mg/dL (80-115); Potassium 3.3 mmol/L (3.5-5.1); Sodium 145 mmol/L (136-145)
[2017-10-25] MEDS: Enalaprilat Dihydrate 1.25 MG/ML VIAL SLOW IVP SCH (05:08)
[2017-10-25] MEDS: niCARdipine 20MG In NaCl 20 MG/200 ML BAG IVPB SCH ×2 (05:10→10:16)
[2017-10-25 05:36] LABS: Band 8 % (5-11); Hemoglobin 8.4 g/dL (14.0-18.0); Lymphocytes 5 % (21-51); MDiff Complete? YES; Mean Corpuscular Hemoglobin 32.4 pg (27.0-31.0); Mean Corpuscular Volume 98.2 fl (80.0-94.0); Mean Platelet Volume 8.7 fL (7.4-10.4); Metamyelocyte 1 % (0-0); Monocytes 5 % (0-10); Neutrophil 81 % (42-75); PLT Morphology Comment Appears Decreased; Platelet Count 103 thou/uL (130-400); RBC Distribution Width 13.3 % (11.5-14.5); Red Blood Cell (RBC) Count 2.59 mill/uL (4.70-6.10); White Blood Cell (WBC) Count 6.3 thou/uL (4.8-10.8)
[2017-10-25] MEDS ORDERED: Furosemide 40 MG/4 ML VIAL SLOW IVP SCH (06:00)
[2017-10-25] MEDS: cloNIDine 0.2 MG TAB PER TUBE PRN (06:18)
[2017-10-25] MEDS: Vancomycin HCl 25 MG/ML Oral PO SCH ×3 (06:18→17:46)
[2017-10-25 08:56] LABS: Vancomycin, Trough 21.4 ug/mL
[2017-10-25] MEDS: Insulin Detemir 100 UNITS/ML 20 UNITS in Pre-Filled Syringe 1 EACH SC SCH ×2 (09:03→21:10)
[2017-10-25] MEDS: Famotidine 20 MG TAB PER TUBE SCH (09:03)
[2017-10-25] MEDS: Carvedilol 25 MG TAB PO SCH ×2 (09:03→17:46)
[2017-10-25] MEDS: levETIRAcetam In NaCl (Iso-Os) 1,500 MG in Premix Bag 1 BAG IVPB SCH ×4 (09:04→21:07)
[2017-10-25] MEDS: Lacosamide 200 MG in Sodium Chloride 0.9% 50 ML IVPB SCH ×2 (09:04→21:00)
[2017-10-25] MEDS: Valproate Sodium 1,000 MG in Sodium Chloride 0.9% 100 ML IVPB SCH ×2 (09:04→22:00)
[2017-10-25] MEDS ORDERED: hydrALAZINE 20 MG/ML VIAL SLOW IVP PRN (09:43)
--- NOTE | 2017-10-25 09:59 | PRG ---
DATE OF SERVICE: 10/25/2017 SERVICE: Pulmonary Medicine. INTERVAL HISTORY: The patient is doing fine from a respiratory standpoint. Oxygen requirements are stable. His blood pressure and hemodynamics have been otherwise stable. He requires nicardipine dri p for blood pressure. At this point, patient is 19 days out from his brain insult. I think we can l iberalize his blood pressure parameters little bit. Otherwise, he cannot provide any additional te-moak ents of the history and he remains encephalopathic. PHYSICAL EXAMINATION: VITAL SIGNS: Afebrile with a T-max of 99.7, pulse 69, blood pressure 154/55, respirations 10, satura tion 94% on 40% FIO2 and PEEP of 5. GENERAL: Patient is intubated and encephalopathic. HEENT: Normocephalic, atraumatic. Sclerae are white, conjunctivae pink. Tracheostomy tube is in go od position. LUNGS: Decent air entry. Dependent crackles are little improved, but still present. No prolonged e xpiratory phase, wheezing is appreciated. HEART: Normal rate, regular. ABDOMEN: Soft. Distended. Bowel sounds are present. No rebound or guarding is evident. MUSCULOSKELETAL: No cyanosis or clubbing. Diffuse 1+ pitting is present, which is a little improved compared to yesterday. LABORATORY DATA: WBC 6.3, hemoglobin 8.4, platelets 103,000. Hemoglobin seems to be dropping off sl ightly. INR 1.4. Creatinine 2.07 and roughly stable. BUN 104, potassium 3.3, ammonia level is 33. Sodium has improved to 145. Urinalysis is essentially unremarkable. Respiratory culture from is growing normal respiratory laz. C. diff antigen and toxin were both positive. Blood cultures x 2 and urinalysis with urine culture is negative to date. ASSESSMENT: 1. Acute hypoxic respiratory failure, improving. 2. Community-acquired pneumonia, status post full course of antibiotics. 3. Tracheobronchitis, new onset. 4. Clostridium difficile colitis, improving. 5. Subarachnoid hemorrhage with subdural hematoma, postop day #19. 6. Status epilepticus, resolved. 7. Acute kidney injury, stable. 8. Metabolic encephalopathy versus anoxic brain injury. 9. History aortic valve replacement, requiring anticoagulation at some future time. PLAN: We will continue aggressive free water replacement. Will get a daily dose of Lasix and will t ry to keep on event a little negative over the next 24-48 hours. Hopefully, as his kidney function s tarts to improve, he will start to wake up and clearance his encephalopathy. My suspicion, however, is that he may have developed an anoxic brain injury. Laboratory support will be continued. We will pull out the rectal tube in order to provide him with a little rest. I will increase his p.o. blood pressure medications to see if we can come off of the nicardipine drip.
[2017-10-25] MEDS: Scopolamine 1.5 mg/72 hour Patch TD SCH (10:16)
[2017-10-25] MEDS: Vancomycin HCl 1.5 GM in Sodium Chloride 0.9% 250 ML 300 ML IVPB SCH (10:16)
[2017-10-25] MEDS ORDERED: Amlodipine 10 MG TAB PO SCH (11:00)
[2017-10-25] MEDS: Furosemide 40 MG/4 ML VIAL SLOW IVP SCH (14:13)
--- NOTE | 2017-10-25 20:17 | PRG ---
DATE OF SERVICE: 10/25/2017 SUBJECTIVE: The patient was seen and examined at bedside, remains intubated as tracheostomy and PEG and is not responding. OBJECTIVE: GENERAL: This is a well-built white male, in no apparent distress. VITAL SIGNS: Temperature 98.0, pulse 72, respiratory rate 20, blood pressure 163/73. HEENT: PEG. CARDIOVASCULAR: S1, S2 heard. Rate and rhythm regular. RESPIRATORY: Clear. GASTROINTESTINAL: Abdomen is soft. MUSCULOSKELETAL: 1+ edema. DERMATOLOGIC: No skin rash. NEUROLOGIC: Not waking up. LABORATORY DATA: Hemoglobin is 8.4. Potassium 3.3, BUN is 104, creatinine is 2.07. ASSESSMENT AND PLAN: 1. Acute kidney injury. Renal function is stable. 2. Hypernatremia, better. Continue free water if tolerated. 3. Hyperchloremia. 4. Acidosis. 5. Hypertension. 6. Acute hypoxic respiratory failure. 7. Altered mentation with almost comatose state. 8. Prognosis is guarded. Renal function is stable. We will follow.
[2017-10-26] MEDS: Vancomycin HCl 25 MG/ML Oral PO SCH ×4 (00:16→17:25)
[2017-10-26 05:15] LABS: Hemoglobin 9.8 g/dL (14.0-18.0)
[2017-10-26] MEDS: HumaLOG 300 UNITS/3 ML VIAL SC PRN (05:15)
[2017-10-26 05:17] LABS: Anion Gap 15 mmol/L (10-20); BUN (Urea Nitrogen) 104 mg/dL (8.4-25.7); Calc. Creatinine Clearance 59 mL/min (70-130); Calcium 8.8 mg/dL (7.8-10.44); Carbon Dioxide 17 mmol/L (23-31); Chloride 117 mmol/L (98-107); Estimated GFR-MDRD 33; Glucose 153 mg/dL (80-115); Potassium 3.4 mmol/L (3.5-5.1); Sodium 146 mmol/L (136-145)
[2017-10-26] MEDS: Furosemide 40 MG/4 ML VIAL SLOW IVP SCH ×2 (06:47→14:37)
[2017-10-26] MEDS: levETIRAcetam In NaCl (Iso-Os) 1,500 MG in Premix Bag 1 BAG IVPB SCH ×4 (08:06→21:51)
[2017-10-26] MEDS: Carvedilol 25 MG TAB PO SCH ×2 (08:06→17:25)
[2017-10-26] MEDS: Amlodipine 10 MG TAB PO SCH (08:07)
[2017-10-26] MEDS: Famotidine 20 MG TAB PER TUBE SCH (08:07)
[2017-10-26] MEDS: Insulin Detemir 100 UNITS/ML 20 UNITS in Pre-Filled Syringe 1 EACH SC SCH ×2 (09:21→22:42)
[2017-10-26] MEDS: Lacosamide 200 MG in Sodium Chloride 0.9% 50 ML IVPB SCH ×2 (09:32→21:39)
[2017-10-26] MEDS: Vancomycin HCl 1.5 GM in Sodium Chloride 0.9% 250 ML 300 ML IVPB SCH (09:34)
[2017-10-26] MEDS: Valproate Sodium 1,000 MG in Sodium Chloride 0.9% 100 ML IVPB SCH ×2 (09:34→21:42)
--- NOTE | 2017-10-26 11:04 | PRG ---
DATE OF SERVICE: 10/26/2017 SUBJECTIVE: Mr. Crawford remains in the ICU. He has remained unresponsive. Our pulmonary colleagues are doing a great job with pulmonary medical management. Mr. Crawford is distant enough from his surgery that I am comfortable instituting an anticoagulant if deemed necessary for either DVT prophylaxis or his heart valve. MTDMeir
[2017-10-26] MEDS ORDERED: Heparin 25,000 units/D5W 500 ML IVPB SCH (13:30)
[2017-10-26] MEDS ORDERED: Heparin 10,000 UNITS/ 10 ML VIAL SLOW IVP SCH (13:30)
--- NOTE | 2017-10-26 13:30 | PRG ---
DATE OF SERVICE: 10/26/2017 SERVICE: Pulmonary Medicine INTERVAL HISTORY: The patient is doing okay from a cardiovascular and respiratory standpoint. Menta tion zamarripa, he has not made any significant recovery. He remains on mechanical ventilation. He is do ing quite well on the ventilator. That being said, he has excessive secretions and he cannot tolerat e having the cuff down at this point. PHYSICAL EXAMINATION: VITAL SIGNS: Afebrile currently with a T-max of 99.9, pulse 71, blood pressure 139/55, respirations 25, saturation 93% on 30% FiO2 and PEEP of 5. GENERAL: The patient is intubated. He is under the influence of no sedation, but remains encephalop athic. HEENT: Normocephalic. There is an incision on the left scalp, which is clean, dry, and intact. Scl erae are white, conjunctivae pink. Oral mucosa is moist without lesions. LUNGS: Decent air entry. No prolonged expiratory phase or wheezing. HEART: Normal rate, regular. ABDOMEN: Soft, nontender, nondistended. Bowel sounds are positive. MUSCULOSKELETAL: No cyanosis or clubbing. There is no pitting in the bilateral lower extremities. LABORATORY DATA: Hemoglobin 9.8. Sodium 146 and stable. Potassium 3.4, chloride 117 and stable. C reatinine 2.03, BUN 104. Anion gap 15. Basic metabolic profile is otherwise unremarkable. Respirat ory culture demonstrated normal respiratory laz. C. diff antigen and toxin are positive. Blood cu lture x2 and urine culture are all negative. ASSESSMENT: 1. Acute hypoxic respiratory failure, stable. 2. Community-acquired pneumonia status post full course of antibiotics. 3. Clostridium difficile infection. 4. Tracheobronchitis. 5. Subarachnoid hemorrhage with subdural hematoma, postop day #20. 6. Status epilepticus, resolved. 7. Acute kidney injury, resolved. 8. Metabolic encephalopathy versus anoxic brain injury. 9. Aortic valve replacement. PLAN: We have gotten the go ahead to proceed with anticoagulation from Neurosurgery. As such, we wi ll initiate him on a heparin drip. If there are any signs of bleeding this will be withheld and we w ill reverse it. Magnesium and phosphorus levels will be checked tomorrow morning. I will give him a dose of potassium today. We will continue on free water. I have adjusted the ventilator to turn mo re support over to him. Pulmonary Critical Care will continue to follow. Ultimately, I do believe t hat were having difficulty neurologic recovery ahead of us. He may very well be close to his new bas kacie. If that is the case, family had previously suggested that they would not want him to exist in this condition and would transition over to comfort care. At this point, they feel it is too early to. As such, LTAC placement will be considered. Critical care time: 30 minutes.
[2017-10-26 16:50] LABS: Vancomycin, Peak 42.5 ug/mL (20.0-40.0)
[2017-10-26] MEDS: Heparin 5,000 UNITS/ML VIAL SC SCH (21:49)
--- NOTE | 2017-10-26 23:47 | PRG ---
DATE OF SERVICE: 10/26/2017 SUBJECTIVE: The patient was seen and examined in ICU, remains intubated, but not responsive. OBJECTIVE: GENERAL: This is a well-built male, seen in ICU, intubated. VITAL SIGNS: Temperature 99.0, pulse 72, respiratory rate 18, blood pressure 130/60. HEENT: Trach present. [place] present in the scalp. CARDIOVASCULAR: S1, S2 heard. RESPIRATORY: Clear. ABDOMEN: Soft. MUSCULOSKELETAL: 1+ edema. DERMATOLOGIC: No skin rash. NEUROLOGIC: Not responding. LABORATORY DATA: Potassium is 3.4, BUN is 104, creatinine is 2.03. ASSESSMENT AND PLAN: 1. Acute kidney injury. Renal function seems to be stable. 2. Hypernatremia. 3. Hyperchloremia. 4. Hypokalemia. 5. Acidosis. 6. Hypertension. 7. Acute hypoxic respiratory failure. 8. Altered mentation. Overall very poor prognosis. Follow with the critical care team. No acute indication for dialysis. Continue supportive care.
[2017-10-27] MEDS: Vancomycin HCl 25 MG/ML Oral PO SCH ×4 (01:31→17:42)
[2017-10-27 06:21] LABS: Anion Gap 14 mmol/L (10-20); BUN (Urea Nitrogen) 104 mg/dL (8.4-25.7); Calc. Creatinine Clearance 58 mL/min (70-130); Calcium 8.7 mg/dL (7.8-10.44); Carbon Dioxide 19 mmol/L (23-31); Chloride 117 mmol/L (98-107); Estimated GFR-MDRD 34; Glucose 145 mg/dL (80-115); Magnesium 1.7 mg/dL (1.6-2.6); Phosphorus 3.8 mg/dL (2.3-4.7); Potassium 3.2 mmol/L (3.5-5.1); Sodium 147 mmol/L (136-145)
[2017-10-27] MEDS: Furosemide 40 MG/4 ML VIAL SLOW IVP SCH (06:37)
--- NOTE | 2017-10-27 08:04 | PRG ---
DATE OF SERVICE: 10/27/2017 Mr. Crawford is now hospital day 21 and essentially 3 weeks out from left-sided craniotomy for acute smith bdural hematoma evacuation. He has had a prolonged emergence postoperatively essentially due to seiz ures and significant antiepileptic medication and sedation to control his seizures. He has had impai red renal function I suspect due to his myocardial infarct. At this point, neurologically he does op en his eyes to stimulation and keeps them open; however, he does not attend to the examiner. The onl y movement to noxious stimuli he has is a weak right shoulder shrug. I reviewed his imaging postoper atively including the CTs and MRI and see no structural pathology other than his resolving parenchyma l hematoma and scattered subarachnoid and subdural blood, all of these would be expected. I think Mr Farheen Crawford simply needs time. There is a plan for possibly EEG today and I will defer to Dr. Trujillo in t hat regard. From a structural standpoint, I certainly see no reason to return to the operating room and I would advocate again continuing to give the patient time to clear his sedation medication, allo w his brain to recover in the absence of structural pathology. The fact that he is opening his eyes at this point is encouraging and I would like to see his motor function and start to return as well. He remains medically with various ailments such as cardiomyopathy and renal insufficiency, all of wh ich our medical colleagues are diligently tending to. We appreciate their attention to these issues. I should note his wounds are healing fine. He has been initiated on subcutaneous heparin. I think we need to start also consider resumption of anticoagulation given his mechanical valve or at least aspirin.
[2017-10-27 08:27] LABS: Vancomycin, Trough 33.9 ug/mL
--- NOTE | 2017-10-27 08:29 | RAD ---
PORTABLE CHEST ONE VIEW: Date: 10-27-17 Time: 4:40 a.m. History: Respiratory failure. FINDINGS/IMPRESSION: No significant interval change is seen since the exam of 10-24-17. POS: [id number]
[2017-10-27] MEDS: Heparin 5,000 UNITS/ML VIAL SC SCH ×2 (09:03→21:34)
[2017-10-27] MEDS: Carvedilol 25 MG TAB PO SCH ×2 (09:03→17:42)
[2017-10-27] MEDS: Amlodipine 10 MG TAB PO SCH (09:03)
[2017-10-27] MEDS: Famotidine 20 MG TAB PER TUBE SCH (09:03)
[2017-10-27] MEDS: Insulin Detemir 100 UNITS/ML 20 UNITS in Pre-Filled Syringe 1 EACH SC SCH ×2 (09:04→21:34)
[2017-10-27] MEDS: levETIRAcetam In NaCl (Iso-Os) 1,500 MG in Premix Bag 1 BAG IVPB SCH ×4 (09:05→21:35)
[2017-10-27] MEDS: Valproate Sodium 1,000 MG in Sodium Chloride 0.9% 100 ML IVPB SCH ×2 (09:05→21:36)
[2017-10-27] MEDS: Lacosamide 200 MG in Sodium Chloride 0.9% 50 ML IVPB SCH ×2 (10:00→21:30)
[2017-10-27] MEDS ORDERED: Magnesium 2 GM/NS 0.9% 100 ML 2 GM in Premix Bag 1 BAG IVPB SCH (10:15)
--- NOTE | 2017-10-27 10:23 | PRG ---
DATE OF SERVICE: 10/27/2017 SERVICE: Pulmonary Medicine. INTERVAL HISTORY: The patient is doing fine from a respiratory standpoint. Neurologically, he may b e slightly improved. He is opening his eyes spontaneously now. He seems to have more interaction wi th his surroundings. He is moving his eyes spontaneously. That being said, he still does not attend or tract. There were no overnight events otherwise. His stool output has decreased. PHYSICAL EXAMINATION: VITAL SIGNS: Afebrile, pulse 76, blood pressure 163/60, respirations 25, saturation 94% on room air. GENERAL: The patient is trached. He is not on any sedation, but not responding to well with the env ironment. HEENT: Normocephalic, atraumatic. Sclerae are white, conjunctivae pink. Oral and nasal mucosa is m oist without lesions. Tracheostomy is clean, dry, and intact. No significant secretions. HEART: Normal rate and regular. ABDOMEN: Soft, nontender, nondistended. Bowel sounds are positive. LUNGS: Good air entry bilaterally with no prolonged expiratory phase, wheezing, rhonchi or crackles. MUSCULOSKELETAL: No cyanosis or clubbing. There remains 1-2+ pitting in different places throughout the body, but this is much improved. GENITOURINARY: Barber in place. LABORATORY DATA: Sodium is 147 and roughly stable/up trending, potassium 3.2, chloride 117. Creatin ine 2.0 and stable, BUN is stable at 104. Phosphorus and magnesium fall the normal limits. Ammonia was previously normal. Vancomycin trough is 33.9. IMAGING: Chest x-ray demonstrates no significant interval change since 10/24/2017. Low lung volumes are present. There is a tracheostomy tube in decent position. Sternotomy wires are present. Left- sided [id number] in IJ is present in an okay position. Multiple clips overlying the mediastinum . ASSESSMENT: 1. Acute hypoxic respiratory failure, improving. 2. Community-acquired pneumonia status post full course of antibiotics. 3. Clostridium difficile infection. 4. Tracheobronchitis, resolved. 5. Subarachnoid hemorrhage with subdural hematoma, postop day #21. 6. Status epilepticus, resolved. 7. Acute kidney injury, resolved. 8. Metabolic encephalopathy versus anoxic brain injury. 9. Aortic valve replacement. PLAN: Since we have controlled the patient's volume status, his oxygen requirements are quite low, I will deescalate his Lasix to once daily. We need to continue giving him his free water. Pulmonary or Critical Care will continue to follow while the patient remains in this location, but from my pers pective, he is stable for transition out of the hospital to an LTAC. He will remain on pressure supp ort ventilation. He does require positive airway pressure because without tracheostomy cuff, he has significant secretions that spill into his lungs. CRITICAL CARE TIME: 30 minutes.
[2017-10-27 12:27] VITALS: BMI 36.9
--- NOTE | 2017-10-27 22:37 | PRG ---
DATE OF SERVICE: 10/27/2017 SUBJECTIVE: The was seen and examined at bedside, remains unresponsive. OBJECTIVE: GENERAL: This is an elderly male, on trach and seen in ICU. VITAL SIGNS: Temperature 98.9, pulse 73, respiratory 20, blood pressure 154/60. HEENT: [place] present on the scalp wound. NECK: Tracheostomy. CARDIOVASCULAR: S1 and S2 heard. RESPIRATORY: Clear anteriorly. ABDOMEN: Soft. MUSCULOSKELETAL: 1+ edema. DERMATOLOGIC: No skin rash. NEUROLOGIC: On trach and not responsive. LABORATORY DATA: Sodium is 147, potassium 3.2, BUN is 104, creatinine is 2.7. ASSESSMENT AND PLAN: 1. Acute kidney injury. Renal function is stable. Creatinine is around 2. 2. Hypokalemia, replaced. 3. Hypernatremia 4. Hyperchloremia. 5. Acidosis. 6. Hypertension. 7. Acute hypoxic respiratory failure. 8. Altered mentation with encephalopathy. 9. Recent history of intracranial bleed. 10. Aortic valve replacement. Overall prognosis is poor. Follow with critical care team. We will continue to follow. Renal funct ion is stable.
[2017-10-28] MEDS: Vancomycin HCl 25 MG/ML Oral PO SCH ×3 (02:46→11:39)
[2017-10-28 04:58] LABS: Anion Gap 15 mmol/L (10-20); BUN (Urea Nitrogen) 97 mg/dL (8.4-25.7); Calc. Creatinine Clearance 59 mL/min (70-130); Calcium 8.7 mg/dL (7.8-10.44); Carbon Dioxide 18 mmol/L (23-31); Chloride 117 mmol/L (98-107); Estimated GFR-MDRD 34; Glucose 132 mg/dL (80-115); Magnesium 2.2 mg/dL (1.6-2.6); Phosphorus 3.4 mg/dL (2.3-4.7); Potassium 3.6 mmol/L (3.5-5.1); Sodium 146 mmol/L (136-145)
[2017-10-28] MEDS ORDERED: Furosemide 40 MG/4 ML VIAL SLOW IVP SCH (06:00)
[2017-10-28] MEDS: Vancomycin HCl 1.5 GM in Sodium Chloride 0.9% 250 ML 300 ML IVPB SCH (06:44)
[2017-10-28] MEDS ORDERED: Valproate Sodium 250 mg/5 ml UD Cup PO SCH (09:00)
[2017-10-28] MEDS ORDERED: levETIRAcetam 500 mg/5 ml Oral Solution PO SCH (09:00)
[2017-10-28] MEDS ORDERED: Lacosamide 50 mg Tablet PO SCH (09:00)
--- NOTE | 2017-10-28 09:02 | PRG ---
DATE OF SERVICE: 10/28/2017 SERVICE: Pulmonary Medicine. INTERVAL HISTORY: The patient is doing really well from a respiratory standpoint. His heart is doin g just fine. There are no cardiovascular events or fevers overnight. He cannot provide me any addit ional elements of the history. PHYSICAL EXAMINATION: VITAL SIGNS: Afebrile with T-max of 99.9 yesterday at noon. Pulse 78, blood pressure 164/57, respir ations 32, saturation 94% on 31% FiO2 and PEEP of 5. GENERAL: The patient has tracheostomy. He is not on any sedation, but is fairly obtunded. HEENT: Normocephalic. There is a scar on the left side of the scalp which is clean, dry, and intact . His sclerae are white, conjunctivae pink. Oral mucosa is moist without lesions. NECK: Tracheostomy is in good position. It is also clean, dry, and intact. Secretions are moderate , but white. LUNGS: Excellent air entry. There is no prolonged expiratory phase. Rhonchi are present. No crack les or wheezing is appreciated. HEART: Normal rate and regular. ABDOMEN: Soft, nontender, nondistended. Bowel sounds are positive. MUSCULOSKELETAL: No cyanosis or clubbing. There is 2+ pitting throughout. GENITOURINARY: Barber catheter in place. NEUROLOGIC: Pupils are equal, round, and reactive. He is breathing just fine on spontaneous pressur e support ventilation. He does not withdraw from noxious stimuli in the bilateral upper or lower ext remities. Babinski sign is neutral. No evidence of hyperreflexia is present. Dolls eyes maneuver i s normal. He spontaneously opens his eyes from time to time. He looks around the room, but does not track or attend. LABORATORY DATA: Sodium 146, chloride 117, bicarbonate 18, creatinine 1.98. BUN is 97 and gently im proving. Magnesium and phosphorus fall within normal limits. Potassium 3.6. INR 1.4. Hemoglobin w as 9.8 yesterday. Respiratory culture is unremarkable. Blood cultures are negative x2. Urine cultu re negative to date. Respiratory cultures also unremarkable. C. diff antigen and toxin was positive . ASSESSMENT: 1. Acute hypoxic respiratory failure, improving. 2. Community acquired pneumonia status post full course of antibiotics. 3. Clostridium difficile infection. 4. Tracheobronchitis, resolved. 5. Subarachnoid hemorrhage with subdural hematoma, postop day #22. 6. Status epilepticus, resolved. 7. Acute kidney injury, resolved. 8. Metabolic encephalopathy versus anoxic brain injury. 9. History of aortic valve replacement with need to restart anticoagulation. PLAN: We will continue supportive care including antibiotics, nebulized medication and other general supportive care. He will transition out of the hospital today to an LTAC facility. If he remains i n this location, I will continue to follow.
[2017-10-28] MEDS: Amlodipine 10 MG TAB PO SCH (09:08)
[2017-10-28] MEDS: Carvedilol 25 MG TAB PO SCH (09:08)
[2017-10-28] MEDS: Famotidine 20 MG TAB PER TUBE SCH (09:09)
[2017-10-28] MEDS: Insulin Detemir 100 UNITS/ML 20 UNITS in Pre-Filled Syringe 1 EACH SC SCH (09:11)
[2017-10-28] MEDS: Heparin 5,000 UNITS/ML VIAL SC SCH (09:11)
[2017-10-28 10:40] VITALS: BP 136/51
--- NOTE | 2017-10-28 11:22 | PRG ---
DATE OF SERVICE: 10/28/2017 SUBJECTIVE: Mr. Crawford continues to open his eyes to stimulation, this is an encouraging sign. I th ink he simply needs time. I think at this point, we need to start thinking about his anticoagulation for his heart valve to avoid further injury to his heart following his myocardial infarct. His kidn ey function continues to be impaired, but has demonstrated slight improvement in his creatinine. I t hink he still needs time clearing the medication and recovering from his seizures and head injury. I am told that he is going to be transferred soon to a long-term acute care facility and we will arran ge appropriate followup. I have looked for his family today, but I cannot find when we were trying c all them at some point.
[2017-10-28 11:35] VITALS: TEMP 99.3
[2017-10-28] MEDS: Scopolamine 1.5 mg/72 hour Patch TD SCH (11:38)
--- NOTE | 2017-10-31 11:57 | DIS ---
DATE OF ADMISSION: 10/06/2017 DATE OF DISCHARGE: 10/28/2017 DISCHARGE DIAGNOSES: 1. Status post fall with left frontal lobe contusion, resulting in left subdural hematoma, status po st left craniotomy for subdural evacuation on 10/07/2017. 2. Seizure disorder. 3. Acute hypoxic respiratory failure. 4. Community-acquired pneumonia. 5. Clostridium difficile infection. 6. Tracheobronchitis. 7. Acute kidney injury. 8. Metabolic encephalopathy versus anoxic brain injury. 9. Aortic valve replacement. 10. Hypertension. 11. Non-ST elevation myocardial infarction. HOSPITAL COURSE: Mr. Crawford was admitted to [facility] as a transfer from the [facility] having sustained a fall resulting in a left lobe contusion and left-sided subdural hematoma. Due to the patient's neurologic decline, neurosurgery was required to evacuate the patient 's subdural hematoma via left-sided craniotomy on 10/07/2017. Patient subsequently developed a seizu re disorder and status epilepticus. He also required Cardiology to be involved that the patient has an aortic valve replacement and was on Coumadin and aspirin. His initial INR was 1.7 and reversed wi th 2 units of fresh-frozen plasma and 10 mg of vitamin K prior to being transferred from the [facility]. Th e patient required several overnight stays in the hospital to help with his multiple medical diagnose s as listed above. Again, Cardiology Critical Care Pulmonology, Neurology, and Nephrology were invol tin in his care. By the morning of 10/28/2017, the patient was opening his eyes to stimulation, but not formally following commands. He was transferred to inpatient rehab for continued care. At the t nakia of discharge, appropriate outpatient followups were scheduled for the patient and the patient's f amily was updated throughout his hospital course. They were pleased with his outcome after his injur y.
--- NOTE | 2017-10-31 15:31 | PQF ---
GALE JAVIER L GERARD MD [id number] ERRONEOUSLY SENT TO THE INCORRECT NON-ADMITTING, NON-DISCHARGING PHYSICIAN JAVI
== END 2017-10-28 13:03 | DRG 3 ==
LOC: ERS 10:46 → EDSEX 10:46 → CCU 12:24
PROVIDERS: ADMIT Neurological Surgery; ATTEND Neurological Surgery
PROC: 5A1955Z Respiratory Ventilation, Greater than 96 Consecutive Hours (ICD-10-PCS; 2017-10-06)
PROC: 00C40ZZ Extirpation of Matter from Intracranial Subdural Space, Open Approach (ICD-10-PCS; 2017-10-07)
PROC: 00H032Z Insertion of Monitoring Device into Brain, Percutaneous Approach (ICD-10-PCS; 2017-10-09)
PROC: 4A103BD Monitoring of Intracranial Pressure, Percutaneous Approach (ICD-10-PCS; 2017-10-09)
PROC: 0B110F4 Bypass Trachea to Cutaneous with Tracheostomy Device, Open Approach (ICD-10-PCS; principal; 2017-10-18)
PROC: 0DH63UZ Insertion of Feeding Device into Stomach, Percutaneous Approach (ICD-10-PCS; 2017-10-18)
PROC: B030ZZZ Magnetic Resonance Imaging (MRI) of Brain (ICD-10-PCS; 2017-10-20)
DX: S06.5X0A Traumatic subdural hemorrhage without loss of consciousness, initial encounter (principal); I21.4 Non-ST elevation (NSTEMI) myocardial infarction; G93.41 Metabolic encephalopathy; G93.1 Anoxic brain damage, not elsewhere classified; N17.9 Acute kidney failure, unspecified; J18.9 Pneumonia, unspecified organism; A04.72 Enterocolitis due to Clostridium difficile, not specified as recurrent; N18.3 Chronic kidney disease, stage 3 (moderate); E11.22 Type 2 diabetes mellitus with diabetic chronic kidney disease; J96.01 Acute respiratory failure with hypoxia; E87.0 Hyperosmolality and hypernatremia; E87.2 Acidosis; J98.11 Atelectasis; R40.20 Unspecified coma; S06.329A Contusion and laceration of left cerebrum with loss of consciousness of unspecified duration, initial encounter; J40 Bronchitis, not specified as acute or chronic; Z78.1 Physical restraint status; Z95.2 Presence of prosthetic heart valve; G40.901 Epilepsy, unspecified, not intractable, with status epilepticus; E87.6 Hypokalemia; I12.9 Hypertensive chronic kidney disease with stage 1 through stage 4 chronic kidney disease, or unspecified chronic kidney disease; D64.9 Anemia, unspecified; Z79.01 Long term (current) use of anticoagulants; E78.5 Hyperlipidemia, unspecified; I25.10 Atherosclerotic heart disease of native coronary artery without angina pectoris; Z95.1 Presence of aortocoronary bypass graft; E11.51 Type 2 diabetes mellitus with diabetic peripheral angiopathy without gangrene; W11.XXXA Fall on and from ladder, initial encounter
CPT/HCPCS: 36415; 36416; 51702; 70450; 70551; 71010; 71045; 76770; 80048; 80076; 80164; 80177; 80202; 81003; 81015; 82140; 82553; 82805; 83605; 83735; 84100; 84443; 84484; 85007; 85014; 85018; 85025; 85027; 85610; 85730; 87040; 87070; 87086; 87205; 87324; 87449; 87493; 93005; 93010; 93970; 94002; 94003; 94640; 94760; 95816; 95819; 95953; 96365; 96366; 96375; A4216; A4217; C1713; C1751; J0131; J0360; J0692; J1644; J1815; J1940; J1953; J1956; J2001; J2060; J2250; J2270; J2543; J2704; J3010; J3370; J3475; J3480; J3490; J7050; J7070; J7620; S0028